=== PATIENT | male | born 1950 | race Caucasian/White ===

== ENCOUNTER 2017-11-12 10:13 | Inpatient (IN) | payer MEDICARE, MEDICAID ==
[~2017-11-12] VITALS: Ht 172.7 cm; Wt 74.7 kg
[~2017-11-12 10:13] MED LIST changes: -IRON150C19 PO; -LEDI1TAB
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
[2017-11-12] MEDS ORDERED: DIPHTH/TETANUS/ACEL. PERTUSSIS IM ONE (10:30)
[2017-11-12 10:43] LABS: PLATELET COUNT, AUTOMATED 232 K/uL (150-450)
[2017-11-12 10:44] LABS: INR 1.06
[2017-11-12] MEDS ORDERED: fentaNYL CITR 100 MCG/2 ML AMP IVP ONE ×2 (10:45→11:50)
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
[2017-11-12] MEDS ORDERED: LEDI1TAB (11:17)
[2017-11-12] MEDS ORDERED: TRAZ-156 PO (11:17)
[2017-11-12] MEDS ORDERED: IRON150C19 PO (11:17)
--- NOTE | 2017-11-12 11:17 | RADIOLOGY IMAGING REPORT ---
FACILITY: [facility] - [place] PATIENT NAME: Saravanan William : 1950 MR: [id number] V: [id number] EXAM DATE: ORDERING PHYSICIAN: NARCISA RIVAS TECHNOLOGIST: [place] [facility] [place] Saravanan Willaim : 1950 Visit/Account:[id number] Date of Sevice: 11/12/2017 Exam type: HIP LEFT History: fall Comparison: None. Findings: There is a fracture through the left femoral neck with superior migration of the left femoral shaft. A lateral view was not obtained although on the oblique view there suggestion of slight posterior di splacement of the distal shaft. There is diffuse osteopenia present. Extensive spondylotic changes of the lumbar spine noted IMPRESSION: 1. Fracture to the left femoral shaft with superior migration of the left femoral shaft and a sugges tion of mild posterior displacement on the oblique view Report Dictated By: Abbey Corbett MD at 11/12/2017 11:10 AM Report E-Signed By: Abbey Corbett MD at 11/12/2017 11:12 AM WSN:[email or web address]
--- NOTE | 2017-11-12 11:20 | RADIOLOGY IMAGING REPORT ---
FACILITY: [facility] PATIENT NAME: Saravanan William : 1950 MR: [id number] V: [id number] EXAM DATE: ORDERING PHYSICIAN: NARCISA RIVAS TECHNOLOGIST: Location: [facility] - [place] Patient: Saravanan William : 1950 Visit/Account:[id number] Date of Sevice: 11/12/2017 Exam type: CHEST SINGLE AP History: Fall with hip pain Comparison: August 04, 2016. Findings: There is elevation right hemidiaphragm which has increased when compared to the prior study. The pearl g nuñez appear relatively free of consolidation. There is no evidence of pleural effusions or overt pulmonary edema. Central pulmonary arteries appear slightly prominent although similar to the prior examination allowing for the difference in radiographic technique. Cardiac silhouette is normal in size IMPRESSION: 1. Elevation right hemidiaphragm has increased when compared to the prior study from August 04 16 suggesting diaphragmatic paralysis. Prominent central pulmonary arteries similar to the prior study Report Dictated By: Abbey Corbett MD at 11/12/2017 11:12 AM Report E-Signed By: Abbey Corbett MD at 11/12/2017 11:16 AM WSN:[email or web address]
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
[2017-11-12] MEDS ORDERED: NS(*) 0.9% 1000 ML BAG 1,000 ML IV ONE (12:35)
--- NOTE | 2017-11-12 13:54 | History & Physical ---
History of Present Illness Chief Complaint Left hip pain. History of Present Illness This patient presented to the emergency room complaining of hip pain after a fall. The pain is located in the left hip and rated as severe. He has been unable to bear weight since the incident. History Problems: (1) Depression Status: Chronic (2) BPH (benign prostatic hyperplasia) Status: Chronic (3) CVA (cerebral vascular accident) Status: Chronic (4) Gastric ulcer Status: Chronic (5) Hepatitis C Status: Chronic (6) S/P lumbar laminectomy Status: Chronic (7) Status post skin flap graft Status: Resolved (8) S/P total knee arthroplasty Status: Chronic Home Meds Active Scripts Oxycodone HCl (Oxycodone HCl ER) 15 Mg Tab.er.12h, 1 TAB PO Q12H, #60 TAB 0 Refills may fill on or after 11/07/17 Prov:LILLI ZAPATA APRN-C 10/29/17 Gabapentin (GABAPENTIN) 600 Mg Tablet, 2 CAP PO TID, #180 CAP 5 Refills Prov:LILLI ZAPATA APRN-C 10/19/17 Tizanidine Hcl (TIZANIDINE HCL) 4 Mg Capsule, 4 MG PO TID Y for SPASMS, #90 CAPSULE 1 Refill Prov:LILLI ZAPATA APRN-C 10/05/17 Ranitidine Hcl (ZANTAC) 150 Mg Tablet, 150 MG PO DAILY for 90 Days, #90 TAB 3 Refills Prov:LILLI ZAPATA APRN-C 09/15/17 Duloxetine Hcl (CYMBALTA) 60 Mg Capsule.dr, 1 TAB PO DAILY, #90 TAB 1 Refill Prov:LILLI ZAPATA APRN-C 09/09/17 Sucralfate (CARAFATE) 1 Gm Tablet, 1 GM PO ACHS, #120 TAB 5 Refills Prov:LILLI ZAPATA APRN-C 08/25/17 Cyanocobalamin (Vitamin B-12) (B-12) 500 Mcg Tablet, 500 MCG PO QDAY, #90 TAB Prov:IZA MEHTA MD 10/29/16 Reported Medications Trazodone Hcl (TRAZODONE HCL) 50 Mg Tablet, 50 MG PO QHS 11/12/17 Iron Polysaccharides Complex (POLYSACCHARIDE IRON 150) 150 Mg Capsule, 150 MG PO , CAPSULE 11/12/17 Ledipasvir/Sofosbuvir (Harvoni 90-400 mg Tablet) 1 Each Tablet 11/12/17 Discontinued Scripts Prazosin Hcl (PRAZOSIN HCL) 2 Mg Capsule, 1 CAP PO QHS, #30 CAPSULE 0 Refills Prov:LILLI ZAPATA FRANSISCA [employer] SALES ASSISTANT-C 10/29/17 Allergies: Coded Allergies: No Known Drug Allergies (Unverified , 11/12/17) 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, , Age:81 MOTHER, Age:86 BROTHER OR SISTER BROTHER OR SISTER Endogenous hypertriglyceridemia FATHER, , Age:81 FH: COPD (chronic obstructive pulmonary disease) FATHER, , Age:81 FH: VA (myocardial infarction) FATHER, , Age:81 FH: abdominal aortic aneurysm FATHER, , Age:81 FH: emphysema FATHER, , Age:81 FH: hypercholesterolemia FATHER, , Age:81 FH: hypertension FATHER, , Age:81 No pertinent family history Hx Smoking: No Smoking Status: Never Smoker Exposure to Second Hand Smoke?: Yes Caffeine Intake: Coffee Caffeine/Cups Per Day: 4 Hx Alcohol Use: Yes Alcohol Used: Wine Hx Substance Use Disorder: No Social Drug Use: Former Social Drugs: Cocaine Amount Of Social Drug/s Used: TRIED 1/2 GRAM EVERY COUPLE OF DAYS Review of Systems All Systems Reviewed/Normal: Yes, Except as Noted Musculoskeletal: Pain Exam Vital Signs Vital Signs Date Time Temp Pulse Resp B/P (MAP) Pulse Ox O2 Delivery O2 Flow Rate FiO2 11/12/17 12:03 67 9 89 11/12/17 12:00 141/78 (99) 11/12/17 10:56 2.0 11/12/17 10:19 98.3 Nasal Cannula Neuro: No Gross deficits Eyes: PERRLA Cardiovascular: Regular Rate and Rhythm Respiratory: Clear to Auscultation GI: Abd Soft and Non-Tender Extremities: No Edema Integumentary: No Cyanosis Medical Decision Making Data Points Result Diagram: 11/12/17 1029 11/12/17 1029 EKG / Imaging EKG Interpretation EKG reviewed. Imaging Chest x-ray reviewed. Assessment and Plan Problems: (1) Closed left hip fracture Status: Acute Assessment & Plan: Dr. Larsen was contacted from the emergency department and is scheduled to see him later today. (2) Depression Status: Chronic Assessment & Plan: He is on chronic treatment with duloxetine and gabapentin, which are both currently on hold until after surgery. Copies to: LILLI ZAPATA APRN [employer] SALES ASSISTANT-C; CANELO LARSEN MD Venous Thromboembolism Antithrombotics Is Pt On Any Antithrombotics?: No Exam Sepsis Risk: No Definite Risk Problem Qualifiers (1) Closed left hip fracture: Encounter type: initial encounter Qualified Codes: S72.002A - Fracture of unspecified part of neck of left femur, initial encounter for closed fracture MALINDA MURPHY DO Nov 12, 2017 13:54
[2017-11-12] MEDS: MORPHINE 2 MG/ML SYR IVP PRN ×3 (14:11→22:18)
[2017-11-12] MEDS: ACETAMINOPHEN(*)1000 MG/100 ML 100 ML IVPB PRN ×2 (14:15→21:42)
[2017-11-12 15:17] VITALS: Ht 172.7 cm; Wt 74.7 kg
[2017-11-12 17:28] VITALS: BP 158/93
[2017-11-12 18:55] VITALS: BP 154/90
[2017-11-12] MEDS: traZODone HCL 50 MG TAB PO PRN (22:18)
[2017-11-12 22:46] VITALS: BP 156/108
[2017-11-13 02:51] VITALS: BP 121/76
[2017-11-13] MEDS: NS(*) 0.9% 1000 ML BAG 1,000 ML IV PRN ×3 (02:52→22:50)
[2017-11-13] MEDS: MORPHINE 2 MG/ML SYR IVP PRN ×5 (02:52→20:09)
[2017-11-13 05:50] LABS: PLATELET COUNT, AUTOMATED 171 K/uL (150-450)
[2017-11-13] MEDS: ACETAMINOPHEN(*)1000 MG/100 ML 100 ML IVPB PRN ×3 (06:19→19:43)
[2017-11-13 06:59] VITALS: BP 137/83
[2017-11-13] MEDS: DULoxetine HCL 30 MG CAPCR PO SCH (10:02)
[2017-11-13] MEDS: GABAPENTIN 300 MG CAP PO SCH ×3 (10:03→21:20)
[2017-11-13 11:36] VITALS: BP 156/96
--- NOTE | 2017-11-13 13:17 | Hospitalist Progress Note ---
Subjective Progress Notes Subjective The patient states his pain is controlled as long as he doesn't move. Physical Exam Vital Signs Date Time Temp Pulse Resp B/P (MAP) Pulse Ox O2 Delivery O2 Flow Rate FiO2 11/13/17 11:36 98.6 68 20 156/96 (116) 96 Nasal Cannula 1.0 Intake and Output 11/14/17 07:00 Intake Total 1725 ml Balance 1725 ml Intake Oral 840 ml IV Total 885 ml General Appearance: Alert, Awake, No Acute Distress Neuro: No Gross deficits Eyes: PERRLA Cardiovascular: Regular Rate and Rhythm Respiratory: Clear to Auscultation GI: Soft and Non-Tender Extremities: Warm, Perfused Psych: Appropriate Mood & Affect Result Diagram: 11/13/1751711/13/17517 Assessment and Plan Problems: (1) Closed left hip fracture Status: Acute Assessment & Plan: Dr. Jeter has seen the patient and plans to take him to surgery 11/14. (2) Depression Status: Chronic Assessment & Plan: He is on chronic treatment with duloxetine and gabapentin, which will be continued. Time Spent on Plan of Care: < 30 min Exam Sepsis Risk: No Definite Risk Problem Qualifiers (1) Closed left hip fracture: Encounter type: initial encounter Qualified Codes: S72.002A - Fracture of unspecified part of neck of left femur, initial encounter for closed fracture DORINA SIERRA MD Nov 13, 2017 13:17
[2017-11-13 18:51] VITALS: BP 150/93
[2017-11-13] MEDS: DOCUSATE SODIUM 100 MG CAP PO SCH (21:20)
[2017-11-13] MEDS: traZODone HCL 50 MG TAB PO PRN (21:20)
[2017-11-13 22:47] VITALS: BP 147/91
[2017-11-14] VITALS (16 sets, daily range): BP systolic 138–163; BP diastolic 79–152
[2017-11-14] MEDS: MORPHINE 2 MG/ML SYR IVP PRN ×2 (00:40→05:17)
[2017-11-14 05:57] LABS: PLATELET COUNT, AUTOMATED 160 K/uL (150-450)
[2017-11-14] MEDS ORDERED: NORMOSOL R SOLN(*) 1000 ML BAG 1,000 ML IV ONE (07:00)
[2017-11-14] MEDS ORDERED: FAMOTIDINE 20 MG TAB PO ONE (07:00)
[2017-11-14] MEDS: ACETAMINOPHEN(*)1000 MG/100 ML 100 ML IVPB PRN (07:45)
[2017-11-14] MEDS: GABAPENTIN 300 MG CAP PO SCH ×3 (07:45→20:38)
[2017-11-14] MEDS ORDERED: cloNIDine EPIDUR INJ 100MCG/ML 40 MCG, ROPIVACAINE 0.5% 20 ML VIAL 25 ML, EPINEPHrine H... INJ ONE (08:35)
[2017-11-14] MEDS ORDERED: BACITRACIN 50000 UNIT/VIAL 100,000 UNIT in NS 0.9% 3000 ML IRRIGATION BAG 3,000 ML IR ONE (08:40)
[2017-11-14] MEDS ORDERED: TRANEXAMIC AC 1000 MG/10ML SDV 1,000 MG in DEXTROSE 5% 50 ML BAG 50 ML IVPB ONE (08:45)
[2017-11-14] MEDS ORDERED: fentaNYL CITR 250 MCG/5 ML AMP ONE ×3 (08:56→08:57)
[2017-11-14] MEDS ORDERED: PROPOFOL EMUL(*) 10MG/ML 20 ML 20 ML ONE (08:58)
[2017-11-14] MEDS ORDERED: LIDOCAINE MPF 1% 5 ML VIAL ONE (08:58)
[2017-11-14] MEDS ORDERED: ONDANSETRON 4 MG/2 ML VIAL ONE (08:58)
[2017-11-14] MEDS ORDERED: DEXAMETHASONE SOD PHOS 10MG/ML ONE (08:58)
[2017-11-14] MEDS ORDERED: SUGAMMADEX SOD 200 MG/2 ML SDV ONE (08:59)
--- NOTE | 2017-11-14 08:59 | Hospitalist Progress Note ---
Subjective Progress Notes Subjective He reports doing well overnight. No CP/SOB/N/V. Physical Exam Vital Signs Date Time Temp Pulse Resp B/P (MAP) Pulse Ox O2 Delivery O2 Flow Rate FiO2 11/14/17 07:37 97 Nasal Cannula 2.0 11/14/17 07:02 98.9 75 18 162/84 (110) General Appearance: Alert, Awake Cardiovascular: Regular Rate and Rhythm Respiratory: Clear to Auscultation GI: Soft and Non-Tender Extremities: Warm, Perfused Psych: Alert & Oriented X3 Result Diagram: 11/14/1734 11/14/17533 Assessment and Plan Problems: (1) Closed left hip fracture Status: Acute Assessment & Plan: Plan is for surgical correction today with Dr. Jeter. He will begin DVT prophylaxis post-op.. (2) Depression Status: Chronic Assessment & Plan: He is on chronic treatment with duloxetine and gabapentin, which which have been continued. Exam Sepsis Risk: No Definite Risk Problem Qualifiers (1) Closed left hip fracture: Encounter type: initial encounter Qualified Codes: S72.002A - Fracture of unspecified part of neck of left femur, initial encounter for closed fracture SMILEY SIERRA MD Nov 14, 2017 08:59
[2017-11-14] MEDS: DOCUSATE SODIUM 100 MG CAP PO SCH ×2 (09:00→20:38)
[2017-11-14] MEDS ORDERED: KETAMINE HCL 200 MG/20 ML MDV ONE (09:39)
[2017-11-14] MEDS ORDERED: ePHEDrine 25 MG/5 ML DISP.SYR IVP ONE (10:00)
[2017-11-14] MEDS ORDERED: HYDROmorphone HCL 2 MG/ML SDV ONE (10:00)
[2017-11-14] MEDS ORDERED: ceFAZolin 1 GM VIAL ONE (10:00)
[2017-11-14] MEDS ORDERED: LABETALOL HCL 100 MG/20ML VIAL ONE (11:59)
[2017-11-14] MEDS ORDERED: MAGNESIUM CITRATE 300 ML BTL PO PRN (12:00)
[2017-11-14] MEDS ORDERED: MAGNESIUM HYDROXIDE* 30ML UDCP PO PRN (12:00)
[2017-11-14] MEDS ORDERED: HYDROmorphone HCL 2 MG/ML SDV IVP PRN (12:00)
[2017-11-14] MEDS ORDERED: BISACODYL 10 MG SUPP PR PRN (12:00)
[2017-11-14] MEDS ORDERED: PROMETHAZINE 25 MG/ML 1 ML AMP IVP PRN (12:00)
[2017-11-14] MEDS ORDERED: diphenhydrAMINE 25 MG CAP PO PRN (12:00)
[2017-11-14] MEDS ORDERED: ONDANSETRON 4 MG/2 ML VIAL IVP PRN (12:00)
[2017-11-14] MEDS ORDERED: ZOLPIDEM TARTRATE 5 MG TAB PO PRN (12:00)
[2017-11-14] MEDS ORDERED: FLUSH 10 ML SYR IVP PRN (12:00)
[2017-11-14] MEDS ORDERED: LR 1000 ML BAG 1000 ML IV PRN (12:00)
[2017-11-14] MEDS ORDERED: diphenhydrAMINE 50 MG/ML VIAL IVP PRN (12:00)
--- NOTE | 2017-11-14 12:14 | RADIOLOGY IMAGING REPORT ---
FACILITY: [facility] [place] PATIENT NAME: Saravanan William : 1950 MR: [id number] V: [id number] EXAM DATE: ORDERING PHYSICIAN: PARISH MEI TECHNOLOGIST: [place] [facility] [place] Saravanan William : 1950 Visit/Account:[id number] Date of Sevice: 11/14/2017 HIP LEFT Indication: Arthroplasty. Comparison: November 12, 2017 Findings: Frontal view of the pelvis and a frontal view of the left hip are obtained. The left iliac crest is e xcluded from both images. A left hip bipolar hemiarthroplasty has been placed in the interval. Compon ents appear appropriately aligned in this single projection. No periprosthetic fracture. There is gas within the operative bed. Right hip joint osteoarthritis noted. IMPRESSION: 1. Interval placement of a left hip bipolar hemiarthroplasty in appropriate alignment on this single projection. Report Dictated By: Sedrick Conroy at 11/14/2017 12:08 PM Report E-Signed By: Sedrick Conroy at 11/14/2017 12:10 PM WSN:[id number]
[2017-11-14] MEDS: DULoxetine HCL 30 MG CAPCR PO SCH (13:39)
[2017-11-14] MEDS: NS(*) 0.9% 1000 ML BAG 1,000 ML IV PRN (14:13)
[2017-11-14] MEDS: ceFAZolin(*) 1 GM VIAL 1 GM in NS(*) 0.9% 100 ML ADDVANT BAG 100 ML IVPB SCH (17:39)
[2017-11-14] MEDS: traZODone HCL 50 MG TAB PO PRN (20:38)
[2017-11-14] MEDS ORDERED: ASPIRIN 325 MG TAB PO ONE (21:00)
[2017-11-15 00:37] VITALS: BP 157/90
[2017-11-15] MEDS: ceFAZolin(*) 1 GM VIAL 1 GM in NS(*) 0.9% 100 ML ADDVANT BAG 100 ML IVPB SCH ×2 (02:01→10:24)
[2017-11-15 03:48] VITALS: BP 146/88
--- NOTE | 2017-11-15 04:35 | OPERATIVE REPORT 1 ---
EVENT DATE: November 12, 2017 SURGEON: Lee Chavira MD ANESTHESIOLOGIST: Dwayne Gray MD ANESTHESIA: General LMA SURVEY QUESTIONNAIRE DESIGNER: Anuj Jeter MD PREOPERATIVE DIAGNOSIS Left femoral neck fracture. POSTOPERATIVE DIAGNOSIS Left femoral neck fracture. PROCEDURE PERFORMED Left hemiarthroplasty for a fracture. FINDINGS The patient had a femoral neck fracture, but was amenable for a hemiarthroplasty , as he had no major signs of arthritis associated with the hip. ESTIMATED BLOOD LOSS About 150 mL. DRAINS None. COMPLICATIONS None. TOURNIQUET TIME Not applicable. IMPLANTS Zeina Avenir size 5 standard stem with a 44 mm bipolar cup, a liner for the 44 bipolar cup and a 28+0 head. SPECIMENS None. INDICATIONS AND HISTORY This patient is a 67-year-old male who presented to [facility] after a fall for a left femoral neck fracture. He was admitted by Dr. Diop to the medical service, and orthopedics was consulted with Dr. Jeter. Dr. Jeter then consulted me for further evaluation and possible hemiarthroplasty associated with this. We went over the risks and benefits associate with the patient, and informed consent was obtained at the hospital here to do a hemiarthroplasty in order to aid with ambulation. He agreed to that, and we got him set up to do this today, November 13, 2017. DESCRIPTION OF PROCEDURE The patient was brought into the operating room. He and the procedure were both verified. He was placed supine on the operative table and induced and intubated by Anesthesia. He was also then turned in a lateral decubitus position with the left hip towards the ceiling, and then the left hip was prepped and draped in the usual fashion and time out was observed, verifying the correct patient and procedure. After making a standard incision on the posterior approach, I was able to go through the skin and subcutaneous tissue until I got down to the IT band on the gluteal musculature. Once I was able to go through this, I made an incision through this, and then was able to get underneath the IT musculature and then split the gluteal musculature in line with the fibers. I then placed a Charnley underneath this and was able to cauterize all bleeders on the way in order to have a good clean field. This was then followed by identification of the short external rotators. I identified the piriformis and put a small pair of scissors underneath this. I was then able to get underneath that enough to then cut the pyriformis and then tag it for later repair. I also cut the leading edge of the short external rotators on the superior aspect of the leg all the way to about the lesser troch. I was then able to cut the capsule with a T shape fashion, and then tag it for later repair. Once I did this, I then was able to turn the leg in an internally rotated position with slight flexion, and then identify the femoral head. Once I identified the femoral head, I was then able to use the corkscrew device in order to remove the femoral head without any major difficulty or issues associated with this. This measured to a 42, but I still had some space , and so therefore a 44 was chosen. I then cleaned out the acetabulum, removing the rest of the ligamentum teres, and also making sure there were no signs of lesions or issues associated with this. Since I had good cartilage, a bipolar prosthesis was chosen, and then I was able to put the trial 44 in here. It had excellent fit, and had good adhesive aspects of the suction with the labrum still intact, and so therefore that the final prosthesis size chosen. I then turned attention back to the femur, where I was able to put a retractor underneath the posterior side, and then a retractor on the medial side. This was then followed by taking a box cutting osteotome and cutting the initial part of the femoral canal, and then also a canal-finding reamer in order to go down the canal itself. Once I was able to identify a good portion of the canal , I then started with the standard broaches out of the Avenir stem. This was started with a 1, and then all the way up to a 5. The 5 had excellent positioning and stability associated with it, and so this was the final component chosen, and there were no signs of problems or issues with any fractures associated with the metaphyseal portion of the femur. I then trialed the standard head and neck associated with this. This looked good, and there were no signs of problems or issues associated with this, and so therefore I then went through the trial aspects. There was good stability associated with it, and so therefore we dislocated and put in the final components after washing with copious amounts of saline, which I had done throughout the entire case with the pulsatile lavage. After relocating the hip and putting it through a range of motion, it showed good stability and leg length with the final components. I then closed the gluteal musculature as well as the IT band with a #2 Stratafix. This was then followed by 2-0 Stratafix in the subcutaneous tissue, placement of the pain cocktail throughout the soft tissue, and then a 4-0 Monocryl on the skin in interrupted subcuticular fashion with the ends inside. This was then dressed with Steri-Strips, gauze 4x4's, and a soft dressing, and the patient was awakened and extubated and transferred to PACU in stable condition with an abduction pillow. JEB
--- NOTE | 2017-11-15 06:01 | Hospitalist Progress Note ---
Subjective Progress Notes Subjective He reports surgical site pain. No other complaints. Physical Exam Vital Signs Date Time Temp Pulse Resp B/P (MAP) Pulse Ox O2 Delivery O2 Flow Rate FiO2 11/15/17 03:48 97.6 73 16 146/88 (107) 94 Nasal Cannula 2.0 General Appearance: Alert, Awake Cardiovascular: Regular Rate and Rhythm Respiratory: Clear to Auscultation Result Diagram: 11/14/17 0534 11/14/17 0534 Assessment and Plan Problems: (1) Closed left hip fracture Status: Acute Assessment & Plan: He had hip replacement with Dr. Chavira 11/14/17. He will begin aspirin 325mg daily DVT prophylaxis post-op. (2) Depression Status: Chronic Assessment & Plan: He is on chronic treatment with duloxetine and gabapentin, which which have been continued. Exam Sepsis Risk: No Definite Risk Problem Qualifiers (1) Closed left hip fracture: Encounter type: initial encounter Qualified Codes: S72.002A - Fracture of unspecified part of neck of left femur, initial encounter for closed fracture SMILEY SIERRA MD Nov 15, 2017 06:01
[2017-11-15 06:09] LABS: PLATELET COUNT, AUTOMATED 153 K/uL (150-450)
[2017-11-15 07:37] VITALS: BP 143/86
[2017-11-15] MEDS ORDERED: INFLUENZA VIRUS VAC 0.5 ML SYR IM ONLY ONE (09:00)
[2017-11-15] MEDS: DOCUSATE SODIUM 100 MG CAP PO SCH ×2 (09:08→21:01)
[2017-11-15] MEDS: GABAPENTIN 300 MG CAP PO SCH ×3 (09:08→21:01)
[2017-11-15] MEDS: DULoxetine HCL 30 MG CAPCR PO SCH (09:09)
[2017-11-15] MEDS: ASPIRIN 325 MG TAB PO SCH (09:09)
[2017-11-15 11:17] VITALS: BP 177/91
[2017-11-15 15:41] VITALS: BP 145/85
[2017-11-15] MEDS: traZODone HCL 50 MG TAB PO PRN (21:01)
[2017-11-15 23:54] VITALS: BP 144/81
[2017-11-16 03:43] VITALS: BP 164/102
[2017-11-16 07:56] VITALS: BP 158/89
[2017-11-16] MEDS: DOCUSATE SODIUM 100 MG CAP PO SCH (08:37)
[2017-11-16] MEDS: GABAPENTIN 300 MG CAP PO SCH (08:38)
[2017-11-16] MEDS: DULoxetine HCL 30 MG CAPCR PO SCH (08:38)
[2017-11-16] MEDS: ASPIRIN 325 MG TAB PO SCH (08:38)
--- NOTE | 2017-11-16 08:38 | Hospitalist Depart ---
Discharge Summary Reason for Hosp/Final Diag: (1) Closed left hip fracture Status: Acute Hospital Course & Plan: He had hip replacement with Dr. Chavira 11/14/17. He will continue aspirin 325mg daily DVT prophylaxis post-op. He was able to ambulate with PT yesterday to the bathroom. He will be transferred to [facility] for acute rehab and he is looking forward to further rehab. (2) Depression Status: Chronic Hospital Course & Plan: He is on chronic treatment with duloxetine and gabapentin, which have been continued. Departure Latest Vital Signs Vital Signs 11/16/17 11/16/17 07:56 08:13 Temp 98.5 Pulse 84 Resp 16 B/P (MAP) 158/89 (112) Pulse Ox 97 O2 Delivery Nasal Cannula O2 Flow Rate 1.0 Weight (Pounds): 164 Weight (Ounces): 10.0 Result Diagram: 11/16/17 0543 11/15/17 0546 Condition: Improved [facility] Discharge Instructions Home Meds Active Scripts Oxycodone HCl (Oxycodone HCl ER) 15 Mg Tab.er.12h, 1 TAB PO Q12H, #60 TAB 0 Refills may fill on or after 11/07/17 Prov:LILLI ZAPATA APRN-C 10/29/17 Gabapentin (GABAPENTIN) 600 Mg Tablet, 2 CAP PO TID, #180 CAP 5 Refills Prov:LILLI ZAPATA APRN-C 10/19/17 Tizanidine Hcl (TIZANIDINE HCL) 4 Mg Capsule, 4 MG PO TID Y for SPASMS, #90 CAPSULE 1 Refill Prov:LILLI ZAPATA APRN-C 10/05/17 Ranitidine Hcl (ZANTAC) 150 Mg Tablet, 150 MG PO DAILY for 90 Days, #90 TAB 3 Refills Prov:LILLI ZAPATA APRN-C 09/15/17 Duloxetine Hcl (CYMBALTA) 60 Mg Capsule.dr, 1 TAB PO DAILY, #90 TAB 1 Refill Prov:LILLI ZAPATA APRN-C 09/09/17 Sucralfate (CARAFATE) 1 Gm Tablet, 1 GM PO ACHS, #120 TAB 5 Refills Prov:LILLI ZAPATA APRN 08/25/17 Cyanocobalamin (Vitamin B-12) (B-12) 500 Mcg Tablet, 500 MCG PO QDAY, #90 TAB Prov:IZA MEHTA MD 10/29/16 Reported Medications Trazodone Hcl (TRAZODONE HCL) 50 Mg Tablet, 50 MG PO QHS 11/12/17 Iron Polysaccharides Complex (POLYSACCHARIDE IRON 150) 150 Mg Capsule, 150 MG PO , CAPSULE 11/12/17 Ledipasvir/Sofosbuvir (Harvoni 90-400 mg Tablet) 1 Each Tablet 11/12/17 Discontinued Scripts Prazosin Hcl (PRAZOSIN HCL) 2 Mg Capsule, 1 CAP PO QHS, #30 CAPSULE 0 Refills Prov:LILLI ZAPATA APRN 10/29/17 Diet: Regular Activity: As Tolerated Copies to: LILLI ZAPATA APRN Venous Thromboembolism Antithrombotics Is Pt On Any Antithrombotics?: No Problem Qualifiers (1) Closed left hip fracture: Encounter type: initial encounter Qualified Codes: S72.002A - Fracture of unspecified part of neck of left femur, initial encounter for closed fracture JOVANY RODRIGUEZ MD FACP Nov 16, 2017 08:38
[2017-11-16] MEDS ORDERED: PRAZ2CAP26 PO (14:20)
== END 2017-11-16 10:05 | DRG 470 ==
LOC: ER 10:14 → MED 12:31
PROVIDERS: ADMIT Family Medicine; ATTEND Family Medicine
PROC: 0SRS0JA Replacement of Left Hip Joint, Femoral Surface with Synthetic Substitute, Uncemented, Open Approach (ICD-10-PCS; principal; 2017-11-12)
DX: S72.002A Fracture of unspecified part of neck of left femur, initial encounter for closed fracture (principal); I10 Essential (primary) hypertension; N40.0 Benign prostatic hyperplasia without lower urinary tract symptoms; B18.2 Chronic viral hepatitis C; K25.7 Chronic gastric ulcer without hemorrhage or perforation; Z23 Encounter for immunization; J45.909 Unspecified asthma, uncomplicated; F32.9 Major depressive disorder, single episode, unspecified; W01.0XXA Fall on same level from slipping, tripping and stumbling without subsequent striking against object, initial encounter; Y92.008 Other place in unspecified non-institutional (private) residence as the place of occurrence of the external cause; Y99.8 Other external cause status; Z86.73 Personal history of transient ischemic attack (TIA), and cerebral infarction without residual deficits; Z87.440 Personal history of urinary (tract) infections; Z96.651 Presence of right artificial knee joint
CPT/HCPCS: 36415; 71045; 81001; 82040; 82247; 82310; 82374; 82435; 82565; 82947; 84075; 84132; 84155; 84295; 84450; 84460; 84520; 85014; 85018; 85025; 85048; 85610; 85730; 86850; 86900; 86901; 87088; 90471; 90715; 93005; 96361; 96374; 96376; 97161; 97165; 99285; C1776; J0131; J0171; J0690; J0735; J1100; J1170; J1885; J2001; J2270; J2405; J2704; J2795; J3010; J3490; J7030; J7050; J7060

== ENCOUNTER → 2017-11-12 | Outpatient (CLI) | payer MEDICARE, MEDICAID ==
[~2017-11-12] MED LIST: ALB18R IH; AMIT-106 PO; AMIT-108 PO; AMLO-96 PO; ASPI-757 PO; AZIT-1 PO; BACL-1 PO; CIPR-214 PO; CLIN300C99 PO; CLON-327 PO; CYAN500T54 PO; CYCL10TA29 PO; DIA5 PO; DICL100G39 TOP; DOCU-416 PO; DULO30CA6 PO; DULO60CA56 PO; FAMO20TA28 PO; FENT-15 TD; FENT-17 TD; FERR-53 PO; FERR325C2 PO; FERR325T24 PO; FLU180SY9 IM; GABA-503 PO; GABA-506 PO; GABA-549 PO; HEPA20VI IM; HEPA50VI4 IM; HYDR-385 PO; HYDR-393 PO; HYDR2TAB74 PO; IRON SUPPLEMENT; IRON150C19 PO; LEDI1TAB; LEDI1TAB PO; LISI-362 PO; LISI20TA29 PO; METH4TAB66 PO; MORP-1 PO; MORP-181 PO; MORP-20 PO; MORP10CA3 PO; OMEP-137 PO; OXYC-373 PO; OXYC-374 PO; OXYC-375 PO; OXYC-865 PO; OXYC-870 PO; OXYC10TA19 PO; OXYC10TA67 PO; OXYC15TA PO; PANT40TA65 PO; PHEN200T32 PO; PNEU0.5D3 IM; PRAZ1CAP26 PO; PRAZ2CAP26 PO; RANI-324 PO; SERT-184 PO; SUCR1TAB51 PO; SUCR1TAB85 PO; TAMS0.4C25 PO; TIZA-128 PO; TIZA4CAP3 PO; TRAZ-156 PO; ZOLP-1 PO; [UNRECOGNIZED DRUG - REMARK]
[2017-11-12 15:17] VITALS: BMI 24.9
== END ==
LOC: AMB 09:48
PROVIDERS: ATTEND Nurse Practitioner
DX: M25.552 Pain in left hip (principal); I49.3 Ventricular premature depolarization; W01.0XXA Fall on same level from slipping, tripping and stumbling without subsequent striking against object, initial encounter; Y92.039 Unspecified place in apartment as the place of occurrence of the external cause
CPT/HCPCS: A0425; A0427

== ENCOUNTER 2017-11-16 10:05 | Inpatient (IN) | payer MEDICARE, MEDICAID ==
[2017-11-12 15:17] VITALS: Ht 170.2 cm; Wt 71.0 kg
[~2017-11-16] VITALS: Ht 170.2 cm; Wt 71.0 kg
[~2017-11-16 10:05] MED LIST changes: +IRON150C19 PO; +LEDI1TAB
[2017-11-16 10:15] VITALS: BP 160/85
[2017-11-16] MEDS ORDERED: traZODone HCL 50 MG TAB PO PRN (10:35)
[2017-11-16] MEDS ORDERED: MAGNESIUM HYDROXIDE* 30ML UDCP PO PRN (10:35)
--- NOTE | 2017-11-16 11:00 | Consultant Pharmacy Review ---
Packing Machine Pilot Can Router Review Medication Review Do All Mecications have a Diag: Yes Beers Criteria Medication 2014 Pain Medications: NSAIDs (nonCOX selective) (ASPIRIN 325MG DAILY - HX OF CVA) Other General Cautions Medication review: Milk of magnesia can reduce absorption of other medications such as Gabapentin and Iron. Avoid taking these medications within two hours of each other for optimal absorption. Monitor BUOY TENDER depression in this patient taking Gapabentin with Percocet. This can create a greater fall risk, especially in older patients. Lexicomp Interaction Analysis A = No known interaction C = Monitor therapy X = Avoid combination B = No action needed D = Consider therapy modification Drugs in this analysis: Aspirin; Docusate Sodium (SYN); DULoxetine; Gabapentin; Milk of Magnesia [OTC]; Percocet; Polysaccharide-Iron Complex; TraZODone * Drug-Drug Interactions D Gabapentin Milk of Magnesia [OTC] (Antacids) D Gabapentin Milk of Magnesia [OTC] (Magnesium Salts) Depends on Route D Gabapentin (BUOY TENDER Depressants) Percocet (OxyCODONE) D Milk of Magnesia [OTC] (Antacids) Polysaccharide-Iron Complex (Iron Salts) Depends on Route C Aspirin DULoxetine (Serotonin/Norepinephrine Reuptake Inhibitors) C DULoxetine (Serotonin Modulators) Percocet (Opioid Analgesics) C DULoxetine (Serotonin Modulators) TraZODone (Serotonin Modulators) C Percocet (Opioid Analgesics) TraZODone (Serotonin Modulators) B Aspirin (Salicylates) Milk of Magnesia [OTC] (Antacids) Depends on Duration Pneumococcal Vaccine HX Pneumo Vac ([id number]): Yes (05/21/2016) HX Pneumo Vac (Pneumovax): No MD Notified? Notified?: No ILANA TORREZ Nov 16, 2017 11:00
[2017-11-16] MEDS: GABAPENTIN 300 MG CAP PO SCH ×2 (13:50→20:37)
[2017-11-16] MEDS ORDERED: PRAZ2CAP26 PO (14:20)
[2017-11-16 15:55] VITALS: BP 135/84
--- NOTE | 2017-11-16 16:04 | OT ECF NOTE ---
Type of Note: Initial Note Primary Medical Diagnosis: Generalized weakness s/p left hip hemiarthroplasty. L LE WBAT with posterior hip precautions. Occupational Therapy Evaluation Date: 11/16/17 SUBJECTIVE: Prior Hospitalization: H 11/12/17 thru 11/16/17. DOS: 11/14/[address] Chavira Prior Level of Function: Independent with dressing and toileting. Assist from Quality for bathing, cleaning, and meal preparation Prior Living Status: Senior housing Community Services: Support adequate, Home health halfway Accessibility: All needs on one level, Tub/shower combination Equipment Owned: Rollator, Extended tub bench Medical Complications/Past Medical History: Extensive medical hx, please refer to EMR Psychosocial Support: Sister that resides in [place] Pain Scale (0-10): 6/10 upon initial evaluation. Emotional support provided. Pt declined application of ice. 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 Assistive Device: Front wheeled walker, Gait belt Transfer Ability: Minimum assistance. Pt with decreased safety awareness and balance noted during ambulation. Impulsive and requiring frequent v/c's to maintain posterior hip precautions during all transfers and mobility. ADL: Upper body dressing: Assistive device: Upper body dressing ability: Set-up Lower body dressing: Assistive device: Will benefit from LB AE education Lower body dressing ability: Total assistance Toileting: Assistive device: Raised toilet seat Toileting ability: Moderate assistance Grooming/hygiene: Assistive device: Seated Grooming ability: Set-up Bathing: Assistive device: Bathing ability: N/T Standardized Assessment: Luis Felipe Index of Activities of Daily Livin/20 upon initial evaluation (). ASSESSMENT: "Brain" sustained a fall at home resulting in L hip fx and subsequent L hip hemiarthroplasty. At OF, he was independent with dressing and toileting. He currently requires Minimum A for ambulation, Total A for LB dressing, Moderate A for toileting and constant verbal cues to adhere to posterior hip precautions. He will benefit from skilled OT services to improve safety and independence with ADLs prior to discharge home. Problem List/Current Limitations: Pain Decreased activity tolerance Decreased ROM Decreased coordination Decreased balance Generalized weakness Poor safety awareness Decreased problem solving Short Term Goals: 1) Pt will be SBA UB/LB dressing with AE. 2) Pt will be SBA toilet task. 3) Pt will be SBA grooming/hygiene. 4) Pt will be Min A shower task. 5) Pt Luis Felipe Index of ADLs score will increase by 2 points. Heliarc Welder Goals: Return home with increased services Patient Goals: Return home Rehabilitation Prognosis: Good Barriers to Discharge: Extensive medical hx, poor safety awareness PLAN: The patient will benefit from skilled occupational therapy services 5 times per week for 2 weeks including: Ther ex ADL training Safety training Ther act IADL training Transfer training Adaptive equip training Bed mobility Energy conservation Thank you for this referral. If you have any questions, concerns, or comments about this report or plan, please contact me at . Asiya Centeno MS, OTR/L Occupational Therapist JEB
--- NOTE | 2017-11-16 16:21 | Medical Nutrition Therapy ---
Nutrition Anthropometrics Height (Inches): 67 Weight (Pounds): 164 BMI Calculated: 24.93 Lamin Nutrition Score: Adequate Lamin Nutrition Risk Score: 17 Dietary Referral Nutrition Risk Factors: Unplanned Loss >10lbs Nutrition Risk Comment: Physical Findings Physical Appearance: Skin Appearance Skin Appearance: Edema Edema Location Modifier: Left Edema Location: Foot Type of Edema: Degree of Edema: Gastrointestinal Symptoms GI Symtoms: Tube Present: Bowel Sounds: Recent Bowel Pattern: Stool Characteristics: Nutritional Diagnosis Nutritional Risk Acuity 3: Hepatitis (C) Nutritional Risk Acuity 4: Good Appetite Past Medical History: HTN, BPH, chronic pain, depression, stroke Nutritional Acuity: 3-Mild Nutrition Problem/Etiology/Sym: No nutrition diagnosis at this time. Energy Requirement: 1861 (MSJ AF1.3) Protein Requirement: 60 (0.8g/kg) Fluid Requirement: 1865 (25mL/kg) Nutrition Monitoring & Eval Nutrition Goals: Eat 50-100% Meal RD Patient Assessment Time: [address] Assessment Type: RD Assessment Patient Nutrition Acuity: 3-Mild Follow Up Date: Nov 23, 2017 Nutritional Comment: 11/16)Pt. admitted post hip replacement. Labs form med floor 11/15) Na 134, Cre 0.6, Glu 135 Hx: HTN, BPH, chronic pain, depression, stroke, CVA, gastric ulcer, hep C. Regular diet, po intake 99% x 5 meals. LAURA TOMAS Nov 16, 2017 12:45
[2017-11-16] MEDS: DOCUSATE SODIUM 100 MG CAP PO SCH (20:37)
[2017-11-17 08:23] VITALS: BP 139/70
--- NOTE | 2017-11-17 08:37 | ECF H&P BLANK ---
[facility] H&P UPDATE History of Present Illness Chief Complaint Left hip pain. History of Present Illness This patient presented to the emergency room complaining of hip pain after a fall. The pain is located in the left hip and rated as severe. He has been unable to bear weight since the incident. History Problems: (1) Depression Status: Chronic (2) BPH (benign prostatic hyperplasia) Status: Chronic (3) CVA (cerebral vascular accident) Status: Chronic (4) Gastric ulcer Status: Chronic (5) Hepatitis C Status: Chronic (6) S/P lumbar laminectomy Status: Chronic (7) Status post skin flap graft Status: Resolved (8) S/P total knee arthroplasty Status: Chronic Home Meds Active Scripts Oxycodone HCl (Oxycodone HCl ER) 15 Mg Tab.er.12h, 1 TAB PO Q12H, #60 TAB 0 Refills may fill on or after 11/07/17 Prov:LILLI ZAPATA APRN-C 10/29/17 Gabapentin (GABAPENTIN) 600 Mg Tablet, 2 CAP PO TID, #180 CAP 5 Refills Prov:LILLI ZAPATA APRNP-C 10/19/17 Tizanidine Hcl (TIZANIDINE HCL) 4 Mg Capsule, 4 MG PO TID Y for SPASMS, #90 CAPSULE 1 Refill Prov:LILLI ZAPATA APRN-C 10/05/17 Ranitidine Hcl (ZANTAC) 150 Mg Tablet, 150 MG PO DAILY for 90 Days, #90 TAB 3 Refills Prov:LILLI ZAPATA APRN-C 09/15/17 Duloxetine Hcl (CYMBALTA) 60 Mg Capsule.dr, 1 TAB PO DAILY, #90 TAB 1 Refill Prov:LILLI ZAPATA APRN-C 09/09/17 Sucralfate (CARAFATE) 1 Gm Tablet, 1 GM PO ACHS, #120 TAB 5 Refills Prov:LILLI ZAPATA APRN-C 08/25/17 Cyanocobalamin (Vitamin B-12) (B-12) 500 Mcg Tablet, 500 MCG PO QDAY, #90 TAB Prov:IZA MEHTA MD 10/29/16 Reported Medications Trazodone Hcl (TRAZODONE HCL) 50 Mg Tablet, 50 MG PO QHS 11/12/17 Iron Polysaccharides Complex (POLYSACCHARIDE IRON 150) 150 Mg Capsule, 150 MG PO , CAPSULE 11/12/17 Ledipasvir/Sofosbuvir (Harvoni 90-400 mg Tablet) 1 Each Tablet 11/12/17 Discontinued Scripts Prazosin Hcl (PRAZOSIN HCL) 2 Mg Capsule, 1 CAP PO QHS, #30 CAPSULE 0 Refills Prov:LILLI ZAPATA APRN TOOL AND MACHINE MAINTAINER-C 10/29/17 Allergies: Coded Allergies: No Known Drug Allergies (Unverified , 11/12/17) 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, , Age:81 MOTHER, Age:86 BROTHER OR SISTER BROTHER OR SISTER Endogenous hypertriglyceridemia FATHER, , Age:81 FH: COPD (chronic obstructive pulmonary disease) FATHER, , Age:81 FH: LA (myocardial infarction) FATHER, , Age:81 FH: abdominal aortic aneurysm FATHER, , Age:81 FH: emphysema FATHER, , Age:81 FH: hypercholesterolemia FATHER, , Age:81 FH: hypertension FATHER, , Age:81 No pertinent family history Hx Smoking: No Smoking Status: Never Smoker Exposure to Second Hand Smoke?: Yes Caffeine Intake: Coffee Caffeine/Cups Per Day: 4 Hx Alcohol Use: Yes Alcohol Used: Wine Hx Substance Use Disorder: No Social Drug Use: Former Social Drugs: Cocaine Amount Of Social Drug/s Used: TRIED 1/2 GRAM EVERY COUPLE OF DAYS Review of Systems All Systems Reviewed/Normal: Yes, Except as Noted Musculoskeletal: Pain Exam Vital Signs Vital Signs Date Time Temp Pulse Resp B/P (MAP) Pulse Ox O2 Delivery O2 Flow Rate FiO2 11/12/17 12:03 67 9 89 11/12/17 12:00 141/78 (99) 11/12/17 10:56 2.0 11/12/17 10:19 98.3 Nasal Cannula Neuro: No Gross deficits Eyes: PERRLA Cardiovascular: Regular Rate and Rhythm Respiratory: Clear to Auscultation GI: Abd Soft and Non-Tender Extremities: No Edema Integumentary: No Cyanosis Medical Decision Making Data Points Result Diagram: 11/12/17 1029 11/12/17 1029 EKG / Imaging EKG Interpretation EKG reviewed. Imaging Chest x-ray reviewed. Assessment and Plan Problems: (1) Closed left hip fracture Status: Acute Assessment & Plan: Dr. Larsen was contacted from the emergency department and is scheduled to see him later today. (2) Depression Status: Chronic Assessment & Plan: He is on chronic treatment with duloxetine and gabapentin, which are both currently on hold until after surgery. Copies to: LILLI ZAPATA APRN; CANELO LARSEN MD Venous Thromboembolism Antithrombotics Is Pt On Any Antithrombotics?: No Exam Sepsis Risk: No Definite Risk Problem Qualifiers (1) Closed left hip fracture: Encounter type: initial encounter Qualified Codes: S72.002A - Fracture of unspecified part of neck of left femur, initial encounter for closed fracture MALINDA MURPHY DO Nov 12, 2017 13:54 <Electronically signed by MALINDA MURPHY DO> D/ [id number] KNAE/ZEYAD CC: LILLI ZAPATA APRN; CANELO LARSEN MD The above acute care issues are resolving and/or stable. Patient requires mcc and/or skilled rehabilitation and is ready for admission to Extended Care. Any change in condition is described below. DORINA SIERRA MD Nov 17, 2017 08:37
[2017-11-17] MEDS: DOCUSATE SODIUM 100 MG CAP PO SCH ×2 (08:54→20:24)
[2017-11-17] MEDS: DULoxetine HCL 30 MG CAPCR PO SCH (08:55)
[2017-11-17] MEDS: ASPIRIN 325 MG TAB PO SCH (08:55)
[2017-11-17] MEDS: GABAPENTIN 300 MG CAP PO SCH ×3 (08:55→20:24)
[2017-11-17] MEDS: POLYSACCHARIDE IRON COM 150 MG PO SCH (08:55)
[2017-11-17] MEDS: SUCRALFATE 1 GM TAB PO SCH ×2 (15:55→20:24)
--- NOTE | 2017-11-17 16:16 | PT ECF NOTE ---
Type of Note: Initial Note Primary Medical Diagnosis: Generalized weakness s/p left hip hemiarthroplasty following traumatic fracture. L) LE WBAT with posterior hip precautions. Physical Therapy Evaluation Date: 11/16/17 SUBJECTIVE: Prior Hospitalization: H 11/12/17 thru 11/16/17. DOS: 11/14/[address] Chavira Prior Level of Function: Independent with dressing and toileting. Assist from [facility] for bathing, cleaning, and meal preparation Prior Living Status: Senior housing Community Services: Support adequate, Home health residential Accessibility: All needs on one level, Tub/shower combination, Elevator available Equipment Owned: Rollator, Extended tub bench Medical Complications/Past Medical History: Extensive medical hx, please refer to EMR Psychosocial Support: Sister that resides in [place] Pain Scale (0-10): 6/10 upon initial evaluation. Emotional support provided. Pt declined application of ice. OBJECTIVE: Strength: R) LE affected from previous injury and is at 4-/5 in general; L) LE not tested due to pain and s/p SHIMA. ROM: (please note any abnormalities) Decreased ROM on L) LE due to SHIMA precautions Sensation: (please note any abnormalities) no new changes to sensation per pt report. Other Neuro findings: Pt is generally impulsive and demos more ataxic like gait pattern. Bed Mobility: Min assist to maintain hip precautions due to impulsive mobility Assistive device: Bed rail Transfers: Minimum assistance; Verbal cues; CGA Assistive Device: Front wheeled walker Gait: Minimum assistance; Verbal cues; CGA Assistive device: Front wheeled walker Stairs: Not yet addressed Assistive device: Timed Up and Go (>12 seconds indicated increased risk for falls): Pt unable to stand and ambulate safely without assistance yet. 10 meter walk test (0.6m/second cannot function independently): n/a Other Objective Measures: n/a ASSESSMENT: Pt states that he is aware of SHIMA precautions and is able to verbalize them, but is not consistently able to apply them during ADL's and mobility, causing staff to provide Min assist to ensure safety with all ADL's currently. Problem List/Current Limitations: Pain, Decreased WB, Decreased activity rmay , Decreased strength, Decreased ROM, Decreased coordination, Decreased balance, Generalized weakness, Poor safety awareness, Decreased problem solving Short Term Goals: 1. Pt to be modified indep for all bed mobility and supine to/from sit transfers 2. Pt to be modified indep for sit to/from stand transfers from appropriate height surfaces 3. Pt to tolerate amblation x 100' with least restrictive and safest device 4. Pt to tolerate up/down platform step to simulate curb in his environment. Powder Room Attendant Goals: Pt to discharge to least restrictive and most supportive environment Patient Goals: Pt would like to return home with previous home healthcare support. Rehabilitation Prognosis: Fair Barriers for Discharge: Pt is rather impulsive with movement and has reported that he does not consistently use his FWW for ambulation within his home. Home Healthcare agency has reported that pt has several falls a week. PLAN: The patient will benefit from skilled physical therapy services 5 times per week for 2 weeks including: Therapeutic Exercise, Therapeutic Activities, Transfer Training, Gait Training, Stair Training, ADL's, Safety Training, Pt/ Caregiver Training, Bed Mobility Thank you for this referral. If you have any questions, concerns, or comments about this report or plan, please contact me at . h. Amara Sawyer, PT, MPT MTDD
[2017-11-17 20:08] VITALS: BP 138/82
[2017-11-17] MEDS: PRAZOSIN HCL 1 MG CAP PO SCH (20:24)
[2017-11-18] MEDS: SUCRALFATE 1 GM TAB PO SCH ×4 (05:15→20:22)
[2017-11-18 09:00] VITALS: BP 145/77
[2017-11-18] MEDS: ASPIRIN 325 MG TAB PO SCH (09:22)
[2017-11-18] MEDS: DOCUSATE SODIUM 100 MG CAP PO SCH ×2 (09:22→20:22)
[2017-11-18] MEDS: POLYSACCHARIDE IRON COM 150 MG PO SCH (09:22)
[2017-11-18] MEDS: GABAPENTIN 300 MG CAP PO SCH ×3 (09:22→20:21)
[2017-11-18] MEDS: DULoxetine HCL 30 MG CAPCR PO SCH (09:22)
[2017-11-18 17:00] VITALS: BP 130/80
[2017-11-18] MEDS: PRAZOSIN HCL 1 MG CAP PO SCH (20:22)
[2017-11-19] MEDS: SUCRALFATE 1 GM TAB PO SCH ×4 (06:30→20:12)
[2017-11-19 07:21] VITALS: BP 145/82
[2017-11-19] MEDS: DOCUSATE SODIUM 100 MG CAP PO SCH ×2 (08:53→20:12)
[2017-11-19] MEDS: ASPIRIN 325 MG TAB PO SCH (08:53)
[2017-11-19] MEDS: POLYSACCHARIDE IRON COM 150 MG PO SCH (08:53)
[2017-11-19] MEDS: GABAPENTIN 300 MG CAP PO SCH ×3 (08:54→20:13)
[2017-11-19] MEDS: DULoxetine HCL 30 MG CAPCR PO SCH (08:54)
[2017-11-19 15:25] VITALS: BP 152/91
[2017-11-19] MEDS: PRAZOSIN HCL 1 MG CAP PO SCH (20:13)
[2017-11-20] MEDS: SUCRALFATE 1 GM TAB PO SCH ×4 (05:35→21:40)
[2017-11-20 08:05] VITALS: BP 151/92
[2017-11-20] MEDS: ASPIRIN 325 MG TAB PO SCH (08:53)
[2017-11-20] MEDS: DULoxetine HCL 30 MG CAPCR PO SCH (08:53)
[2017-11-20] MEDS: DOCUSATE SODIUM 100 MG CAP PO SCH ×2 (08:53→21:39)
[2017-11-20] MEDS: GABAPENTIN 300 MG CAP PO SCH ×3 (08:53→21:39)
[2017-11-20] MEDS: POLYSACCHARIDE IRON COM 150 MG PO SCH (08:53)
[2017-11-20 17:36] VITALS: BP 190/109
[2017-11-20] MEDS: PRAZOSIN HCL 1 MG CAP PO SCH (21:39)
[2017-11-21] MEDS: SUCRALFATE 1 GM TAB PO SCH ×4 (05:23→21:02)
[2017-11-21 07:45] VITALS: BP 143/92
[2017-11-21] MEDS: ASPIRIN 325 MG TAB PO SCH (08:55)
[2017-11-21] MEDS: GABAPENTIN 300 MG CAP PO SCH ×3 (08:55→21:02)
[2017-11-21] MEDS: DULoxetine HCL 30 MG CAPCR PO SCH (08:55)
[2017-11-21] MEDS: POLYSACCHARIDE IRON COM 150 MG PO SCH (08:55)
[2017-11-21] MEDS: DOCUSATE SODIUM 100 MG CAP PO SCH ×2 (08:55→21:02)
[2017-11-21 17:05] VITALS: BP 142/91
[2017-11-21] MEDS: PRAZOSIN HCL 1 MG CAP PO SCH (21:02)
[2017-11-22] MEDS: SUCRALFATE 1 GM TAB PO SCH ×4 (05:45→20:57)
[2017-11-22 08:10] VITALS: BP 120/78
[2017-11-22] MEDS: ASPIRIN 325 MG TAB PO SCH (08:47)
[2017-11-22] MEDS: DOCUSATE SODIUM 100 MG CAP PO SCH ×2 (08:47→20:57)
[2017-11-22] MEDS: DULoxetine HCL 30 MG CAPCR PO SCH (08:47)
[2017-11-22] MEDS: GABAPENTIN 300 MG CAP PO SCH ×3 (08:47→20:57)
[2017-11-22] MEDS: POLYSACCHARIDE IRON COM 150 MG PO SCH (08:47)
[2017-11-22 15:30] VITALS: BP 152/97
[2017-11-22] MEDS: PRAZOSIN HCL 1 MG CAP PO SCH (20:57)
[2017-11-23] MEDS: SUCRALFATE 1 GM TAB PO SCH ×4 (05:36→20:21)
[2017-11-23 09:00] VITALS: BP 137/87
--- NOTE | 2017-11-23 09:41 | Medical Nutrition Therapy ---
Nutrition Anthropometrics Height (Inches): 67.00 Height (Calculated Centimeters: 170.332354 Weight (Pounds): 162 Weight (Calculated Kilograms): 73.482 BMI Calculated: 24.93 Lamin Nutrition Score: Adequate Lamin Nutrition Risk Score: 16 Dietary Referral Nutrition Risk Factors: Unplanned Loss >10lbs Nutrition Risk Comment: Nutritional Diagnosis Nutritional Risk Acuity 3: Hepatitis (C) Nutritional Risk Acuity 4: Good Appetite Past Medical History: HTN, BPH, chronic pain, depression, stroke Nutritional Acuity: 3-Mild Nutrition Problem/Etiology/Sym: No nutrition diagnosis at this time. Energy Requirement: 1861 (MSJ AF1.3) Protein Requirement: 60 (0.8g/kg) Fluid Requirement: 1865 (25mL/kg) Food Likes: Hot roast beef with kenyan cheddar sandwich on a bun Nutrition Monitoring & Eval Nutrition Goals: Eat 75-100% Meal Nutrition Follow-Up: Good Intake RD Patient Assessment Time: [address] Assessment Type: RD Assessment Patient Nutrition Acuity: 3-Mild Follow Up Date: Nov 30, 2017 Nutritional Comment: 11/16)Pt. admitted post hip replacement. Labs form med floor 11/15) Na 134, Creat 0.6, Glu 135 Hx: HTN, BPH, chronic pain, depression, stroke, CVA, gastric ulcer, hep C. Regular diet, po intake 99% x 5 meals. 11/23 Pt cont regtualr diet, eating 75- 100% of meals. No new labs. Will cont to monitor and encourage intake. JEREMIE MARQUEZ Nov 23, 2017 09:41
[2017-11-23] MEDS: ASPIRIN 325 MG TAB PO SCH (09:42)
[2017-11-23] MEDS: GABAPENTIN 300 MG CAP PO SCH ×3 (09:43→20:21)
[2017-11-23] MEDS: DOCUSATE SODIUM 100 MG CAP PO SCH ×2 (09:43→20:21)
[2017-11-23] MEDS: DULoxetine HCL 30 MG CAPCR PO SCH (09:43)
[2017-11-23] MEDS: POLYSACCHARIDE IRON COM 150 MG PO SCH (09:44)
[2017-11-23 15:15] VITALS: BP 140/80
[2017-11-23] MEDS: PRAZOSIN HCL 1 MG CAP PO SCH (20:21)
[2017-11-24] MEDS: SUCRALFATE 1 GM TAB PO SCH ×4 (05:37→20:37)
[2017-11-24 08:06] VITALS: BP 128/71
[2017-11-24] MEDS: DOCUSATE SODIUM 100 MG CAP PO SCH ×2 (09:16→20:37)
[2017-11-24] MEDS: ASPIRIN 325 MG TAB PO SCH (09:16)
[2017-11-24] MEDS: POLYSACCHARIDE IRON COM 150 MG PO SCH (09:16)
[2017-11-24] MEDS: DULoxetine HCL 30 MG CAPCR PO SCH (09:17)
[2017-11-24] MEDS: GABAPENTIN 300 MG CAP PO SCH ×3 (09:17→20:37)
--- NOTE | 2017-11-24 11:53 | Hospitalist Progress Note ---
Subjective Progress Notes Subjective Doing well. Having some pain due to muscle spasm. Physical Exam Vital Signs Date Time Temp Pulse Resp B/P (MAP) Pulse Ox O2 Delivery O2 Flow Rate FiO2 11/24/17 10:30 93 Room Air 11/24/17 08:06 97.8 85 18 128/71 (90) 11/24/17 05:37 2.0 Intake and Output 11/25/17 07:00 Intake Total 480 ml Balance 480 ml Intake Oral 480 ml # Voids 1 General Appearance: Alert, Awake, No Acute Distress, Afebrile Neuro: No Gross deficits ENT: Moist Mucous Membranes Cardiovascular: Regular Rate and Rhythm Respiratory: Clear to Auscultation GI: Soft and Non-Tender, Other (BS +) Extremities: Warm, Perfused, Other (No edema. Cody hose in place.) Psych: Alert & Oriented X3, Appropriate Mood & Affect Assessment and Plan Problems: (1) Closed left hip fracture Status: Acute Assessment & Plan: He had hip replacement with Dr. Chavira 11/14/17. He will continue aspirin 325mg daily DVT prophylaxis post-op (30 days). He was transferred to [facility] for acute rehab and is progressing. Will be discharged soon. (2) Depression Status: Chronic Assessment & Plan: He is on chronic treatment with duloxetine and gabapentin, which have been continued. Time Spent on Plan of Care: < 30 min DORINA SIERRA MD Nov 24, 2017 11:53
--- NOTE | 2017-11-24 11:59 | Hospitalist Depart ---
Discharge Summary Reason for Hosp/Final Diag: (1) Closed left hip fracture Status: Acute Hospital Course & Plan: S/p hip replacement with Dr. Chavira 11/14/17. He was placed on aspirin 325mg daily for DVT prophylaxis post-op (30 days). He was transferred to [facility] for acute rehab and progressed. He was discharged with Home Health. (2) Depression Status: Chronic Hospital Course & Plan: He is on chronic treatment with duloxetine and gabapentin, which were continued during his stay on ECF. Departure Weight (Pounds): 156 Weight (Ounces): 8.0 Condition: Improved Discharge: Home, Home Health PT/OT Follow Up For: PT For Surgical Rehab, OT For ADL's Home Health RN Follow Up For: Nursing Assessment Home Health CASE FINISHER Follow Up For: ADL Assistance Time Spent: < 30 min Discharge Instructions Home Meds Active Scripts Oxycodone HCl (Oxycodone HCl ER) 15 Mg Tab.er.12h, 1 TAB PO Q12H, #60 TAB 0 Refills may fill on or after 11/07/17 Prov:LILLI ZAPATA APRN-C 10/29/17 Gabapentin (GABAPENTIN) 600 Mg Tablet, 2 CAP PO TID, #180 CAP 5 Refills Prov:LILLI ZAPATA APRN-C 10/19/17 Tizanidine Hcl (TIZANIDINE HCL) 4 Mg Capsule, 4 MG PO TID Y for SPASMS, #90 CAPSULE 1 Refill Prov:LILLI ZAPATA APRN-C 10/05/17 Ranitidine Hcl (ZANTAC) 150 Mg Tablet, 150 MG PO DAILY for 90 Days, #90 TAB 3 Refills Prov:LILLI ZAPATA APRN-C 09/15/17 Duloxetine Hcl (CYMBALTA) 60 Mg Capsule.dr, 1 TAB PO DAILY, #90 TAB 1 Refill Prov:LILLI ZAPATA APRN-C 09/09/17 Sucralfate (CARAFATE) 1 Gm Tablet, 1 GM PO ACHS, #120 TAB 5 Refills Prov:LILLI ZAPATA APRNC 08/25/17 Cyanocobalamin (Vitamin B-12) (B-12) 500 Mcg Tablet, 500 MCG PO QDAY, #90 TAB Prov:IZA MEHTA MD 10/29/16 Reported Medications Prazosin Hcl (PRAZOSIN HCL) 2 Mg Capsule, 2 MG PO HS, CAPSULE 11/16/17 Iron Polysaccharides Complex (POLYSACCHARIDE IRON 150) 150 Mg Capsule, 150 MG PO , CAPSULE 11/12/17 Follow up Referrals: Internal Medicine - In One Month @ [facility] with LE Pillai Diet: Regular Activity: As Tolerated Copies to: LILLI ZAPATA APRN-C Venous Thromboembolism VTE Risk Physician Assess for VTE Risk: Yes Patient's VTE Risk: Low VTE Diagnostic Test 2 Days Prior to Admit: No Antithrombotics Is Pt On Any Antithrombotics?: Yes (DVT prophylaxis per ortho with ASA 325mg daily.) [id number] Certification Face to Face Home Health Certification Institutional Provider conducted the [id number] encounter. Electronic Undersigning Physician Certifies Home Health. I certify that the patient has been under my care and that I had a [id number] encounter that meets the physician vmfo-kr-[id number] encounter requirements with this patient. This patient is home-bound due to safety issues and continues to require assistance with ADL's. I certify that based on my findings, that Nursing, Aides and the following Home Health services are medically necessary: OT/PT Medical Necessity: Nursing, Rehab Date Face to Face Conducted: Nov 24, 2017 DORINA SIERRA MD Nov 24, 2017 11:59
[2017-11-24 16:25] VITALS: BP 143/89
[2017-11-24] MEDS: PRAZOSIN HCL 1 MG CAP PO SCH (20:37)
[2017-11-25] MEDS: SUCRALFATE 1 GM TAB PO SCH ×4 (05:05→20:36)
[2017-11-25 08:30] VITALS: BP 126/75
[2017-11-25] MEDS: DULoxetine HCL 30 MG CAPCR PO SCH (09:11)
[2017-11-25] MEDS: DOCUSATE SODIUM 100 MG CAP PO SCH ×2 (09:11→20:36)
[2017-11-25] MEDS: POLYSACCHARIDE IRON COM 150 MG PO SCH (09:11)
[2017-11-25] MEDS: ASPIRIN 325 MG TAB PO SCH (09:11)
[2017-11-25] MEDS: GABAPENTIN 300 MG CAP PO SCH ×3 (09:12→20:36)
[2017-11-25 16:50] VITALS: BP 181/91
[2017-11-25] MEDS: PRAZOSIN HCL 1 MG CAP PO SCH (20:36)
[2017-11-26] MEDS: SUCRALFATE 1 GM TAB PO SCH (05:52)
[2017-11-26 07:45] VITALS: BP 145/92
[2017-11-26 08:05] VITALS: BP 122/60
[2017-11-26] MEDS: DOCUSATE SODIUM 100 MG CAP PO SCH (09:00)
[2017-11-26] MEDS: ASPIRIN 325 MG TAB PO SCH (09:05)
[2017-11-26] MEDS: POLYSACCHARIDE IRON COM 150 MG PO SCH (09:05)
[2017-11-26] MEDS: DULoxetine HCL 30 MG CAPCR PO SCH (09:05)
[2017-11-26] MEDS: GABAPENTIN 300 MG CAP PO SCH (09:05)
--- NOTE | 2017-11-26 11:56 | OT ECF NOTE ---
Type of Note: Discharge Note Primary Medical Diagnosis: Generalized weakness s/p left hip hemiarthroplasty. L LE WBAT with posterior hip precautions. Occupational Therapy Evaluation Date: 11/16/17 SUBJECTIVE: Prior Hospitalization: H 11/12/17 thru 11/16/17. DOS: 11/14/[address] Chavira Prior Level of Function: Independent with dressing and toileting. Assist from [facility] for bathing, cleaning, and meal preparation Prior Living Status: Senior housing Community Services: Support adequate, Home health [facility] Accessibility: All needs on one level, Tub/shower combination Equipment Owned: Rollator, Extended tub bench Medical Complications/Past Medical History: Extensive medical hx, please refer to EMR Psychosocial Support: Sister that resides in [place] Pain Scale (0-10): 6/10 upon initial evaluation. Emotional support provided. Pt declined application of ice. OBJECTIVE: Strength: MMT: Right Left Shoulder Flexion WFL WFL Elbow Flexion WFL WFL Wrist Extension WFL WFL Handbag Parts Cutter WFL WFL (5= normal, 4= good, 3= fair, 2= poor, 1= trace) ROM: Both upper extremities, WFL Functional Transfer: Assistive Device: 4WW Transfer Ability: Modified Independent with 4WW ADL: Upper body dressing: Assistive device: Upper body dressing ability: Independent Lower body dressing: Assistive device: Sock aide/assistant press operator offset. HH will assist with donning/doffing of roel hose. Lower body dressing ability: Modified Independent Toileting: Assistive device: Raised toilet seat Toileting ability: Modified Independent Grooming/hygiene: Assistive device: Seated Grooming ability: Independent Bathing: Assistive device: Extended tub transfer bench Bathing ability: Minimum assistance-Pt will have assist for all bathing from services. Standardized Assessment: Luis Felipe Index of Activities of Daily Livin/20 upon initial evaluation (). at discharge date (11/26/17). ASSESSMENT: "Brain" sustained a fall at home resulting in L hip fx and subsequent L hip hemiarthroplasty. At OF, he was independent with dressing and toileting. He has met all skilled OT goals and desire to discharge home at current level of function. He is able to recall 3/3 posterior hip precautions and verbalizes understanding of adherence to precautions. He verbalizes understanding of safe use of 4WW and use of AE for ADLs. Problem List/Current Limitations: Pain Decreased activity tolerance Decreased ROM Decreased coordination Decreased balance Generalized weakness Poor safety awareness Decreased problem solving Short Term Goals: 1) Pt will be SBA UB/LB dressing with AE. Goal Met. 2) Pt will be SBA toilet task. Goal Met. 3) Pt will be SBA grooming/hygiene. Goal Met. 4) Pt will be Min A shower task. Goal Met. 5) Pt Luis Felipe Index of ADLs score will increase by 2 points. Goal Met. Floor Coverings Installer Goals: Return home with increased HH services Patient Goals: Return home Rehabilitation Prognosis: Good Barriers to Discharge: Extensive medical hx, poor safety awareness PLAN: The patient plans to discharge home with assist from sister, prepared meals, PT/OT, and [facility] BUILDING MAINTENANCE REPAIRER assist 5x/week. Thank you for this referral. If you have any questions, concerns, or comments about this report or plan, please contact me at . Asiya Centeno MS, OTR/L Occupational Therapist JEB
--- NOTE | 2017-11-26 15:59 | PT ECF NOTE ---
Type of Note: Discharge Summary Primary Medical Diagnosis: Generalized weakness s/p left hip hemiarthroplasty following traumatic fracture. L) LE WBAT with posterior hip precautions. Physical Therapy Evaluation Date: 11/16/17 SUBJECTIVE: Prior Hospitalization: [facility] 11/12/17 thru 11/16/17. DOS: 11/14/[address] Chavira Prior Level of Function: Independent with dressing and toileting. Assist from [facility] for bathing, cleaning, and meal preparation Prior Living Status: Senior housing Community Services: Support adequate, Home health retirement Accessibility: All needs on one level, Tub/shower combination, Elevator available Equipment Owned: Rollator, Extended tub bench Medical Complications/Past Medical History: Extensive medical hx, please refer to EMR Psychosocial Support: Sister that resides in [place] Pain Scale (0-10): Pt reports pain is never lower than at 5/10. OBJECTIVE: Strength: R) LE affected from previous injury and is at 4-/5 in general; L) LE not tested due to pain and s/p SHIMA. ROM: (please note any abnormalities) Decreased ROM on L) LE due to SHIMA precautions Sensation: (please note any abnormalities) no new changes to sensation per pt report. Other Neuro findings: Pt is generally impulsive and demos more ataxic like gait pattern. Bed Mobility: Mod I with and without bed rail. Pt has a bed rail at home for use. Good adherence to hip precautions. Assistive device: Bed rail Transfers: Mod I with good adherence to hip precautions. Assistive Device: Rollator Gait: Mod I with Rollator walker x 200-300' with good adherence to hip precautions. Assistive device: Rollator Stairs: Ascend/descend 1 step to simulate curb with SBA. ASSESSMENT: Pt has met PT goals and is safe to return home and continue physical therapy with home health. Problem List/Current Limitations: Pain, Decreased WB, Decreased activity ramy , Decreased strength, Decreased ROM, Decreased coordination, Decreased balance, Generalized weakness, Poor safety awareness, Decreased problem solving Short Term Goals: 1. Pt to be modified indep for all bed mobility and supine to/from sit transfers 2. Pt to be modified indep for sit to/from stand transfers from appropriate height surfaces 3. Pt to tolerate amblation x 100' with least restrictive and safest device 4. Pt to tolerate up/down platform step to simulate curb in his environment. Pneumatic Tube Repairer Goals: Pt to discharge to least restrictive and most supportive environment Patient Goals: Pt would like to return home with previous home healthcare support. Rehabilitation Prognosis: Fair Barriers for Discharge: Pt is rather impulsive with movement and has reported that he does not consistently use his FWW for ambulation within his home. Home Healthcare agency has reported that pt has several falls a week. PLAN: DC home with continued therapy with home health. Thank you for this referral. If you have any questions, concerns, or comments about this report or plan, please contact me at . Rowan Cole PT, DPT, GCS MTDD
== END 2017-11-26 10:32 | disposition home health service (06) | DRG 561 ==
LOC: UNDOADMIN 10:05 → SWB 10:05
PROVIDERS: ADMIT Internal Medicine; ATTEND Internal Medicine
DX: S72.002D Fracture of unspecified part of neck of left femur, subsequent encounter for closed fracture with routine healing (principal); F32.9 Major depressive disorder, single episode, unspecified; N40.0 Benign prostatic hyperplasia without lower urinary tract symptoms; B18.2 Chronic viral hepatitis C; K25.7 Chronic gastric ulcer without hemorrhage or perforation; Z96.651 Presence of right artificial knee joint; Z86.73 Personal history of transient ischemic attack (TIA), and cerebral infarction without residual deficits; Z96.642 Presence of left artificial hip joint
CPT/HCPCS: 97161; 97165

== ENCOUNTER 2017-11-28 12:21 | Inpatient (IN) | payer MEDICARE, MEDICAID ==
[2017-11-12 15:17] VITALS: Wt 75.5 kg
[~2017-11-28 12:21] MED LIST changes: -ASPI-764 PO; -CEPH500C24 PO; -PER PO
--- NOTE | 2017-11-28 12:22 | ER Report ---
History and Physical Time Seen By MD: 12:21 HPI/ROS CHIEF COMPLAINT: Bleeding from surgical site HISTORY OF PRESENT ILLNESS:Patient is a 67-year-old male who is brought to the emergency department by ambulance for postoperative bleeding to his left total hip replacement. Patient fell on November 12 fracturing his hip. He subsequently had a total hip replacement on November [address] Ramon and was discharged from the hospital to assisted care facility on November 16. Today patient noticed that a portion of his incision has opened and he is having some oozing from this site. Patient has otherwise had no complications for this surgery. REVIEW OF SYSTEMS: Respiratory: No cough, no dyspnea. Cardiovascular: No chest pain, no palpitations. Gastrointestinal: No vomiting, no abdominal pain. Musculoskeletal: No back pain. Allergies: Coded Allergies: No Known Drug Allergies (Unverified , 11/28/17) Home Meds Active Scripts Oxycodone/Acetaminophen (OXYCODONE/ACETAMINOPHEN 5MG/325 MG) 5 Mg/325 Mg Tab, 1- 2 TAB PO Q6H Y for PAIN, #30 TAB 0 Refills Prov:SMILEY BETTENCOURT MD 11/30/17 Cephalexin Monohydrate (CEPHALEXIN) 500 Mg Cap, 500 MG PO QID for 7 Days, #28 CAP 0 Refills Prov:SMILEY BETTENCOURT MD 11/30/17 Aspirin (ASPIRIN EC) 325 Mg Tablet.dr, 325 MG PO QDAY for 30 Days, #30 TAB 0 Refills Prov:SMILEY BETTENCOURT MD 11/30/17 Oxycodone HCl (Oxycodone HCl ER) 15 Mg Tab.er.12h, 1 TAB PO Q12H, #60 TAB 0 Refills Prov:SMILEY BETTENCOURT MD 11/30/17 Gabapentin (GABAPENTIN) 600 Mg Tablet, 2 CAP PO TID, #180 CAP 5 Refills Prov:LILLI ZAPATA APRN-C 10/19/17 Tizanidine Hcl (TIZANIDINE HCL) 4 Mg Capsule, 4 MG PO TID Y for SPASMS, #90 CAPSULE 1 Refill Prov:LILLI ZAPATA APRN-C 10/05/17 Ranitidine Hcl (ZANTAC) 150 Mg Tablet, 150 MG PO DAILY for 90 Days, #90 TAB 3 Refills Prov:LILLI ZAPATA APRN-C 09/15/17 Duloxetine Hcl (CYMBALTA) 60 Mg Capsule.dr, 1 TAB PO DAILY, #90 TAB 1 Refill Prov:LILLI ZAPATA FRANSISCA SERVICE ATTENDANT CAFET[facility]IA-Thee 09/09/17 Sucralfate (CARAFATE) 1 Gm Tablet, 1 GM PO ACHS, #120 TAB 5 Refills Prov:JOSÉ MIGUEL ZAPATARIYA WINTERSP-Thee 08/25/17 Cyanocobalamin (Vitamin B-12) (B-12) 500 Mcg Tablet, 500 MCG PO QDAY, #90 TAB Prov:IZA MEHTA MD 10/29/16 Reported Medications Prazosin Hcl (PRAZOSIN HCL) 2 Mg Capsule, 2 MG PO HS, CAPSULE 11/16/17 Iron Polysaccharides Complex (POLYSACCHARIDE IRON 150) 150 Mg Capsule, 150 MG PO DAILY, CAPSULE 11/12/17 Past Medical/Surgical History Status post left total hip replacement on 11/14/2017 Hx Smoking: No Smoking Status: Never Smoker Exposure to Second Hand Smoke?: Yes Hx Substance Use Disorder: No Hx Alcohol Use: Yes Constitutional Vital Sign - Last 24 Hours 11/28/17 11/28/17 11/28/17 11/28/17 12:21 12:30 12:45 13:00 Temp 98.9 Pulse 92 87 89 85 Resp 18 B/P (MAP) 123/80 137/58 (84) Pulse Ox 87 95 96 95 O2 Delivery Room Air 11/28/17 11/28/17 11/28/17 11/28/17 13:30 13:45 14:00 14:15 Pulse 83 83 84 85 B/P (MAP) 116/77 (90) 121/82 (95) Pulse Ox 96 96 98 95 11/28/17 11/28/17 14:30 14:45 Pulse 75 75 B/P (MAP) 128/80 (96) Pulse Ox 97 95 Physical Exam General Appearance: The patient is alert, has no immediate need for airway protection and no current signs of toxicity. Eyes: Pupils equal and round no injection. Respiratory: Chest is non tender, lungs are clear to auscultation. Cardiac: regular rate and rhythm [ ] Gastrointestinal: Abdomen is soft and non tender, no masses, bowel sounds normal. Musculoskeletal: Neck: Neck is supple and non tender. Extremities have full range of motion and are non tender. Skin: No rashes or lesions. Patient has open wound to the left hip surgical site approximal 1 cm in length. There is active oozing from the site. Medical Decision Making Data Points Result Diagram: 11/30/17 0547 11/30/17 0547 Laboratory Hematology Test 11/28/17 11:30 11/28/17 12:30 11/28/17 12:49 Erythrocyte Sedimentation Rate 40 mm/HOUR (0-20) Peripheral Blood Smear Yes Y/N Prothrombin Time 14.3 seconds (12.0-14.4) Prothromb Time International Ratio 1.11 Chemistry Test 11/28/17 11:30 11/28/17 12:30 11/28/17 12:49 Erythrocyte Sedimentation Rate 40 mm/HOUR (0-20) Peripheral Blood Smear Yes Y/N Prothrombin Time 14.3 seconds (12.0-14.4) Prothromb Time International Ratio 1.11 Coagulation Test 11/28/17 12:49 Prothrombin Time 14.3 seconds Prothromb Time International Ratio 1.11 Microbiology Microbiology Date/Time Source Procedure Growth Status 11/28/17 14:50 Blood Peripheral Draw Blood Culture - Preliminary NO GROWTH AFTER 3 DAYS, REINCUBATED Resulted 11/28/17 14:37 Blood Peripheral Draw Blood Culture - Preliminary NO GROWTH AFTER 3 DAYS, REINCUBATED Resulted 11/28/17 00:00 Fine Needle Aspirate Gram Stain - Final Complete 11/28/17 00:00 Fine Needle Aspirate Body Fluid Culture - Final No growth after 3 days Complete 11/28/17 00:00 Fine Needle Aspirate Anaerobic Culture - Final NO GROWTH AFTER 2 DAYS Complete 11/28/17 00:00 Fine Needle Aspirate Gram Stain - Final Complete 11/28/17 00:00 Fine Needle Aspirate Body Fluid Culture - Final No growth after 3 days Complete 11/28/17 00:00 Fine Needle Aspirate Anaerobic Culture - Final NO GROWTH AFTER 2 DAYS Complete 11/28/17 00:00 Fine Needle Aspirate Gram Stain - Final Complete 11/28/17 00:00 Fine Needle Aspirate Body Fluid Culture - Final No growth after 3 days Complete 11/28/17 00:00 Fine Needle Aspirate Anaerobic Culture - Final NO GROWTH AFTER 2 DAYS Complete EKG/Imaging Imaging FACILITY: [facility] - [place] PATIENT NAME: Saravanan William : 1950 MR: [id number] V: [id number] EXAM DATE: ORDERING PHYSICIAN: NARCISA RIVAS TECHNOLOGIST: Location: [facility] [place] Patient: Saravanan William : 1950 Visit/Account:[id number] Date of Sevice: 11/28/2017 Examination: HIP LEFT W CONTRAST Comparison: Radiographs 11/14/2017 and earlier History: bleeding from surgical site. Surgery on 11/14/2017. Procedure: Multiplanar CT left hip with 75 mL intravenous Isovue 370. One of the following dose optimization techniques was utilized in the performance of this exam: Automated exposure control; adjustment of the mA and/ or kV according to the patient's size; or use of an iterative reconstruction technique. Specific details can be referenced in the facility's radiology CT exam operational policy. Findings: Left hip bipolar hemiarthroplasty. Arthroplasty alignment is within normal limits with no evidence of periprosthetic fracture or lucency. The visualized portions of the pelvis are intact; pubic symphysis and left sacroiliac joint alignment is maintained. Lumbosacral alignment is within normal limits although there is moderate degenerative disc disease at L5-S1. Sacrococcygeal alignment is preserved. 13.5 x 4.6 x 6.2 cm irregularly shaped rim-enhancing gas and fluid collection within the deep soft tissues lateral to the greater trochanter. The cephalad component of the collection is located within the musculature between the gluteus major and gluteus medius. There is a small amount of gas within the posterior joint space and along the posterior greater trochanter as well; this could potentially communicate with the dominant gas and fluid collection although evaluation in this region is limited by artifact from the arthroplasty. No other soft tissue gas or fluid collection is identified. No evidence of acute disease within the visualized pelvis. Mild diverticulosis along the visualized colon. IMPRESSION: 1. 13.5 x 4.6 x 6.2 cm irregularly-shaped rim-enhancing gas and fluid collection within the deep soft tissues lateral to the greater trochanter. The appearance is most concerning for an abscess with a benign postoperative collection considered less likely. 2. Small amount of gas within the posterior joint joint space. This could potentially communicate with the dominant gas collection and hardware infection cannot be excluded. 3. Normal postoperative alignment of the left bipolar hemiarthroplasty with no evidence of acute fracture. Results were discussed with NARCISA RIVAS at 11/28/2017 2:08 PM. Report Dictated By: Kishor Steel MD at 11/28/2017 1:33 PM Report E-Signed By: Kishor Steel MD at 11/28/2017 2:09 PM [id number] ED Course/Re-evaluation Clinical Indication for ER IV: IV Access ED Course 11/28/2017 2:31:[address] Maynor Villarreal from orthopedics will come in to evaluate the patient. The patient will be admitted to the medicine service under Dr. Mili Bettencourt secondary to postoperative wound infection. Patient and family members were made aware of CT scan findings which is concerning for postoperative wound infection. Patient will be started on IV vancomycin and cefepime. Blood cultures were drawn prior to starting antibiotics. No questions or concerns at time of disposition. Decision to Disposition Date: Nov 28, 2017 Decision to Disposition Time: 14:31 Depart Departure Latest Vital Signs Vital Signs Date Time Temp Pulse Resp B/P (MAP) Pulse Ox O2 Delivery O2 Flow Rate FiO2 11/28/17 14:45 75 95 11/28/17 14:30 128/80 (96) 11/28/17 12:21 98.9 18 Room Air Impression: Primary Impression: Post op infection Condition: Condition Unchanged Disposition: Admitted from ER (to Ade Bettencourt) Referrals: LILLI ZAPATA APRN SERVICE ATTENDANT CAFETERIA-C (PCP) New Scripts Oxycodone/Acetaminophen (OXYCODONE/ACETAMINOPHEN 5MG/325 MG) 5 Mg/325 Mg Tab 1-2 TAB PO Q6H Y for PAIN, #30 TAB 0 Refills Prov: SMILEY BETTENCOURT MD 11/30/17 Cephalexin Monohydrate (CEPHALEXIN) 500 Mg Cap 500 MG PO QID for 7 Days, #28 CAP 0 Refills Prov: SMILEY BETTENCOURT MD 11/30/17 Aspirin (ASPIRIN EC) 325 Mg Tablet.dr 325 MG PO QDAY for 30 Days, #30 TAB 0 Refills Prov: SMILEY BETTENCOURT MD 11/30/17 Oxycodone HCl (Oxycodone HCl ER) 15 Mg Tab.er.12h 1 TAB PO Q12H, #60 TAB 0 Refills Prov: SMILEY BETTENCOURT MD 11/30/17 Problem Qualifiers Primary Impression: Post op infection Encounter type: initial encounter Qualified Codes: T81.4XXA - Infection following a procedure, initial encounter NARCISA RIVAS MD Nov 28, 2017 12:22
[2017-11-28 12:42] LABS: PLATELET COUNT, AUTOMATED 388 K/uL (150-450)
[2017-11-28] MEDS ORDERED: MORPHINE 4 MG/ML SDV IVP ONE (12:55)
[2017-11-28] MEDS ORDERED: IOPAMIDOL 76% 75 ML INFUS BTL 75 ML ONE (13:01)
[2017-11-28 13:07] LABS: INR 1.11
--- NOTE | 2017-11-28 14:11 | RADIOLOGY IMAGING REPORT ---
FACILITY: [facility] - [place] PATIENT NAME: Saravanan William : 1950 MR: [id number] V: [id number] EXAM DATE: ORDERING PHYSICIAN: NARCISA RIVAS TECHNOLOGIST: Location: [facility] Patient: Saravanan William : 1950 Visit/Account:[id number] Date of Sevice: 11/28/2017 Examination: HIP LEFT W CONTRAST Comparison: Radiographs 11/14/2017 and earlier History: bleeding from surgical site. Surgery on 11/14/2017. Procedure: Multiplanar CT left hip with 75 mL intravenous Isovue 370. One of the following dose optimization techniques was utilized in the performance of this exam: Autom ated exposure control; adjustment of the mA and/or kV according to the patient's size; or use of an i terative reconstruction technique. Specific details can be referenced in the facility's radiology C T exam operational policy. Findings: Left hip bipolar hemiarthroplasty. Arthroplasty alignment is within normal limits with no e vidence of periprosthetic fracture or lucency. The visualized portions of the pelvis are intact; pubi c symphysis and left sacroiliac joint alignment is maintained. Lumbosacral alignment is within normal limits although there is moderate degenerative disc disease at L5-S1. Sacrococcygeal alignment is pr eserved. 13.5 x 4.6 x 6.2 cm irregularly shaped rim-enhancing gas and fluid collection within the deep soft ti ssues lateral to the greater trochanter. The cephalad component of the collection is located within t he musculature between the gluteus major and gluteus medius. There is a small amount of gas within th e posterior joint space and along the posterior greater trochanter as well; this could potentially co mmunicate with the dominant gas and fluid collection although evaluation in this region is limited by artifact from the arthroplasty. No other soft tissue gas or fluid collection is identified. No evidence of acute disease within the v isualized pelvis. Mild diverticulosis along the visualized colon. IMPRESSION: 1. 13.5 x 4.6 x 6.2 cm irregularly-shaped rim-enhancing gas and fluid collection within the deep soft tissues lateral to the greater trochanter. The appearance is most concerning for an abscess with a b enign postoperative collection considered less likely. 2. Small amount of gas within the posterior joint joint space. This could potentially communicate wit h the dominant gas collection and hardware infection cannot be excluded. 3. Normal postoperative alignment of the left bipolar hemiarthroplasty with no evidence of acute frac ture. Results were discussed with NARCISA RIVAS at 11/28/2017 2:08 PM. Report Dictated By: Kishor Steel MD at 11/28/2017 1:33 PM Report E-Signed By: Ksihor Steel MD at 11/28/2017 2:09 PM [id number]
[2017-11-28] MEDS ORDERED: CEFEPIME HCL 2 GM VIAL IVP ONE (14:25)
[2017-11-28] MEDS ORDERED: VANCOMYCIN 1 GM ADDVIAL 1 GM in NS(*) 0.9% 250 ML ADDVAN BAG 250 ML IVPB ONE (14:25)
[2017-11-28] MEDS ORDERED: metroNIDAZOLE* 500MG/100ML BAG 100 ML IVPB ONE (14:35)
[2017-11-28] MEDS ORDERED: fentaNYL CITR 100 MCG/2 ML AMP ONE (15:48)
[2017-11-28] MEDS ORDERED: MIDAZOLAM 2 MG/2 ML VIAL ONE (15:48)
[2017-11-28] MEDS ORDERED: PROPOFOL EMUL(*) 10MG/ML 20 ML 20 ML ONE (15:49)
[2017-11-28] MEDS ORDERED: DEXAMETHASONE SOD PHOS 10MG/ML ONE (15:49)
[2017-11-28] MEDS ORDERED: ONDANSETRON 4 MG/2 ML VIAL ONE (15:49)
[2017-11-28] MEDS ORDERED: LIDOCAINE MPF 1% 5 ML VIAL ONE (15:49)
[2017-11-28] MEDS ORDERED: ROCURONIUM BROM 10 MG/ML 10 ML ONE (15:49)
[2017-11-28] MEDS ORDERED: ROPIVACAINE 0.2% 20 ML VIAL ONE (16:12)
[2017-11-28] MEDS ORDERED: SUGAMMADEX SOD 500 MG/5 ML SDV ONE (17:34)
[2017-11-28] MEDS ORDERED: NS(*) 0.9% 1000 ML BAG 1,000 ML IV PRN ×2 (18:20→19:02)
[2017-11-28] MEDS ORDERED: ONDANSETRON 4 MG/2 ML VIAL IVP PRN (18:25)
[2017-11-28 18:31] VITALS: BP 146/83
--- NOTE | 2017-11-28 18:34 | History & Physical ---
History of Present Illness Chief Complaint Draining hip wound after ORIF for hip fx. History of Present Illness The patient is a 67 year old male who was recently admitted to [facility] after a fall with L hip fracture. The hip was repaired and the patient was transferred to [facility] for rehabilitation. He was discharged on November 26. He presented to the ER today complaining of drainage from the surgical wound. He states an area on the surgical wound just "popped" today and drained a large amount of bloody fluid. A CT was done in the ER and showed a 13.5 x 4.6 x 6.2 cm irregularly- shaped rim-enhancing gas and fluid collection within the deep soft tissues lateral to the greater trochanter. Dr. Villarreal, orthopedist, was consulted and recommended the patient be admitted to the hospitalist service with orthopedic consultation. The patient was taken to OR from the ER and had surgical clean out with placement of a wound vac. History Problems: (1) Chronic pain Status: Chronic (2) Anxiety Status: Chronic (3) Depression Status: Chronic (4) BPH (benign prostatic hyperplasia) Status: Chronic (5) CVA (cerebral vascular accident) Status: Chronic (6) Hepatitis C Status: Chronic (7) Hypertension Status: Chronic (8) Multiple head injury Status: Chronic (9) Spinal stenosis of lumbar region Status: Chronic (10) Closed left hip fracture Status: Acute Home Meds Active Scripts Oxycodone HCl (Oxycodone HCl ER) 15 Mg Tab.er.12h, 1 TAB PO Q12H, #60 TAB 0 Refills may fill on or after 11/07/17 Prov:LILLI ZAPATA APRNP-C 10/29/17 Gabapentin (GABAPENTIN) 600 Mg Tablet, 2 CAP PO TID, #180 CAP 5 Refills Prov:LILLI ZAPATA APRN PLANT TECHNICIAN/CONTROL ROOM OPERATOR-C 10/19/17 Tizanidine Hcl (TIZANIDINE HCL) 4 Mg Capsule, 4 MG PO TID Y for SPASMS, #90 CAPSULE 1 Refill Prov:LILLI ZAPATA APRN PLANT TECHNICIAN/CONTROL ROOM OPERATOR-C 10/05/17 Ranitidine Hcl (ZANTAC) 150 Mg Tablet, 150 MG PO DAILY for 90 Days, #90 TAB 3 Refills Prov:LILLI ZAPATA APRN PLANT TECHNICIAN/CONTROL ROOM OPERATOR-C 09/15/17 Duloxetine Hcl (CYMBALTA) 60 Mg Capsule.dr, 1 TAB PO DAILY, #90 TAB 1 Refill Prov:LILLI ZAPATA APRN 09/09/17 Sucralfate (CARAFATE) 1 Gm Tablet, 1 GM PO ACHS, #120 TAB 5 Refills Prov:LILLI ZAPATA APRN 08/25/17 Cyanocobalamin (Vitamin B-12) (B-12) 500 Mcg Tablet, 500 MCG PO QDAY, #90 TAB Prov:IZA MEHTA MD 10/29/16 Reported Medications Prazosin Hcl (PRAZOSIN HCL) 2 Mg Capsule, 2 MG PO HS, CAPSULE 11/16/17 Iron Polysaccharides Complex (POLYSACCHARIDE IRON 150) 150 Mg Capsule, 150 MG PO DAILY, CAPSULE 11/12/17 Allergies: Coded Allergies: No Known Drug Allergies (Unverified , 11/28/17) 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 Hx Smoking: No Smoking Status: Never Smoker Exposure to Second Hand Smoke?: Yes Caffeine Intake: Coffee Caffeine/Cups Per Day: 4 Hx Alcohol Use: Yes Hx Substance Use Disorder: No Social Drug Use: Former Social Drugs: Cocaine Amount Of Social Drug/s Used: TRIED 1/2 GRAM EVERY COUPLE OF DAYS History of IV Drug Use: No Review of Systems All Systems Reviewed/Normal: Yes, Except as Noted Constitutional: No Fever, No Chills Musculoskeletal: Other (L hip wound drainage as per HPI.) Psychiatric: Depression, Anxiety Exam Vital Signs Vital Signs Date Time Temp Pulse Resp B/P (MAP) Pulse Ox O2 Delivery O2 Flow Rate FiO2 11/28/17 18:45 92 144/89 (107) 97 Nasal Cannula 2.0 11/28/17 18:31 97.6 14 General Appearance: Alert, Awake, No Acute Distress, Afebrile Neuro: No Gross deficits Eyes: PERRLA Cardiovascular: Regular Rate and Rhythm (With S4 gallop.) Respiratory: No Respiratory Distress, Clear to Auscultation GI: Abd Soft and Non-Tender Extremities: Warm, Perfused, Other (Wound vac in place over L hip.) Integumentary: Other (Wound vac in place over L hip wound.) Psych: Alert & Oriented X3, Appropriate Mood & Affect Medical Decision Making Data Points Result Diagram: 11/28/17 1230 11/28/17 1230 Item Value Date Time Erythrocyte Sedimentation Rate 40 mm/HOUR H 11/28/17 1130 Calcium Level 8.9 mg/dl 11/28/17 1230 Total Bilirubin 0.6 mg/dl 11/28/17 1230 Aspartate Amino Transf (AST/SGOT) 25 U/L 11/28/17 1230 Alanine Aminotransferase (ALT/SGPT) 34 U/L 11/28/17 1230 Alkaline Phosphatase 85 U/L 11/28/17 1230 Total Protein 7.2 gm/dl 11/28/17 1230 Albumin 3.9 g/dl 11/28/17 1230 C-Reactive Protein 3.9 mg/dl H 11/28/17 1130 Prothrombin Time 14.3 seconds 11/28/17 1249 Prothromb Time International Ratio 1.11 11/28/17 1249 Blood cultures and wound/body fluid cultures pending. EKG / Imaging Imaging FACILITY: [facility] - [place] PATIENT NAME: Saravanan William : 1950 MR: [id number] V: [id number] EXAM DATE: ORDERING PHYSICIAN: NARCISA RIVAS TECHNOLOGIST: Location: [facility] Patient: Saravanan William : 1950 Visit/Account:[id number] Date of Sevice: 11/28/2017 Examination: HIP LEFT W CONTRAST Comparison: Radiographs 11/14/2017 and earlier History: bleeding from surgical site. Surgery on 11/14/2017. Procedure: Multiplanar CT left hip with 75 mL intravenous Isovue 370. One of the following dose optimization techniques was utilized in the performance of this exam: Automated exposure control; adjustment of the mA and/ or kV according to the patient's size; or use of an iterative reconstruction technique. Specific details can be referenced in the facility's radiology CT exam operational policy. Findings: Left hip bipolar hemiarthroplasty. Arthroplasty alignment is within normal limits with no evidence of periprosthetic fracture or lucency. The visualized portions of the pelvis are intact; pubic symphysis and left sacroiliac joint alignment is maintained. Lumbosacral alignment is within normal limits although there is moderate degenerative disc disease at L5-S1. Sacrococcygeal alignment is preserved. 13.5 x 4.6 x 6.2 cm irregularly shaped rim-enhancing gas and fluid collection within the deep soft tissues lateral to the greater trochanter. The cephalad component of the collection is located within the musculature between the gluteus major and gluteus medius. There is a small amount of gas within the posterior joint space and along the posterior greater trochanter as well; this could potentially communicate with the dominant gas and fluid collection although evaluation in this region is limited by artifact from the arthroplasty. No other soft tissue gas or fluid collection is identified. No evidence of acute disease within the visualized pelvis. Mild diverticulosis along the visualized colon. IMPRESSION: 1. 13.5 x 4.6 x 6.2 cm irregularly-shaped rim-enhancing gas and fluid collection within the deep soft tissues lateral to the greater trochanter. The appearance is most concerning for an abscess with a benign postoperative collection considered less likely. 2. Small amount of gas within the posterior joint joint space. This could potentially communicate with the dominant gas collection and hardware infection cannot be excluded. 3. Normal postoperative alignment of the left bipolar hemiarthroplasty with no evidence of acute fracture. Results were discussed with NARCISA RIVAS at 11/28/2017 2:08 PM. Report Dictated By: Kishor Steel MD at 11/28/2017 1:33 PM Report E-Signed By: Kishor Steel MD at 11/28/2017 2:09 PM [id number] Pre-Admit Course Medical Record Review: Yes Assessment and Plan Problems: (1) Post op infection Status: Acute Assessment & Plan: The patient was found to have abscess at his previous surgical site on CT. Dr. Villarreal took him to OR to debride the wound and he now has a wound vac in place. He has been started on Ancef. Blood and wound/body fluid cultures are pending. CRP and ESR were done prior to surgery and will be followed. (2) Closed left hip fracture Status: Acute Assessment & Plan: S/P repair. See previous admission for details. (3) Depression Status: Chronic Assessment & Plan: Continue Cymbalta and gabapentin. (4) Insomnia Status: Chronic Assessment & Plan: The patient takes prazosin 2mg at HS. (5) DVT prophylaxis Status: Acute Assessment & Plan: Will start ASA 325mg daily. Time Spent on Plan of Care: < 30 min Venous Thromboembolism Antithrombotics Is Pt On Any Antithrombotics?: Yes (ASA 325mg daily for postop hip fx repair.) Exam Sepsis Risk: No Definite Risk Problem Qualifiers (1) Post op infection: Encounter type: initial encounter Qualified Codes: T81.4XXA - Infection following a procedure, initial encounter DORINA SIERRA MD Nov 28, 2017 18:34
[2017-11-28 18:45] VITALS: BP 144/89
[2017-11-28] MEDS ORDERED: ACETAMINOPHEN 325 MG TAB PO PRN (19:05)
[2017-11-28] MEDS: PRAZOSIN HCL 1 MG CAP PO SCH (21:14)
[2017-11-28] MEDS: SUCRALFATE 1 GM TAB PO SCH (21:15)
[2017-11-28] MEDS: GABAPENTIN 300 MG CAP PO SCH (21:15)
[2017-11-29] VITALS (12 sets, daily range): BP systolic 111–168; BP diastolic 61–95
[2017-11-29] MEDS ORDERED: NS(*) 0.9% 250 ML BAG 250 ML in NS(*) 0.9% 250 ML BAG 250 ML IV PRN (00:15)
[2017-11-29] MEDS ORDERED: NS(*) 0.9% 250 ML BAG 250 ML ONE (01:32)
[2017-11-29] MEDS: ceFAZolin(*) 2GM/D5W 50ML 50 ML IVPB SCH ×3 (01:37→16:29)
[2017-11-29] MEDS: DIAZEPAM 5 MG TAB PO PRN ×3 (01:38→21:20)
[2017-11-29] MEDS: SUCRALFATE 1 GM TAB PO SCH ×4 (05:51→21:20)
[2017-11-29 06:28] LABS: PLATELET COUNT, AUTOMATED 326 K/uL (150-450)
[2017-11-29] MEDS: INSULIN HUM LISPRO 100 UN/ML 3 ML VIAL SUBQ PRN ×2 (09:06→12:07)
[2017-11-29] MEDS: DOCUSATE CALCIUM 240 MG CAP PO SCH (09:08)
[2017-11-29] MEDS: DULoxetine HCL 30 MG CAPCR PO SCH (09:08)
[2017-11-29] MEDS: GABAPENTIN 300 MG CAP PO SCH ×3 (09:08→21:20)
[2017-11-29] MEDS: CYANOCOBALAMIN 100 MCG TAB PO SCH (09:09)
[2017-11-29] MEDS: POLYSACCHARIDE IRON COM 150 MG PO SCH (09:09)
[2017-11-29] MEDS: RANITIDINE HCL 150 MG TAB PO SCH (09:09)
[2017-11-29] MEDS: ASPIRIN 325 MG ENTERIC COATED PO SCH (09:09)
--- NOTE | 2017-11-29 13:32 | Hospitalist Progress Note ---
Subjective Progress Notes Subjective He reports feeling improved. Physical Exam Vital Signs Date Time Temp Pulse Resp B/P (MAP) Pulse Ox O2 Delivery O2 Flow Rate FiO2 11/29/17 11:16 95 11/29/17 11:08 98.4 101 16 131/73 (92) Nasal Cannula 1.0 Intake and Output 11/30/17 07:00 Intake Total 830 ml Output Total 1050 ml Balance -220 ml Intake Oral 700 ml IV Total 130 ml Output Urine Total 1050 ml General Appearance: Alert, Awake Cardiovascular: Regular Rate and Rhythm Respiratory: Clear to Auscultation Musculoskeletal: Other (left hip incision with wound vacuum in place/no surrounding erythema noted) Psych: Alert & Oriented X3 Result Diagram: 11/29/1759 11/29/17 0559 Assessment and Plan Problems: (1) Post op infection Status: Acute Assessment & Plan: The patient was found to have abscess at his previous surgical site. Dr. Villarreal took him to OR to debride the wound and he now has a wound vacuum in place. He has been started on IV Ancef. Blood and wound/body fluid cultures are pending. CRP and ESR were done prior to surgery and will be followed. Will discuss length of IV therapy with orthopedics. (2) Closed left hip fracture Status: Acute Assessment & Plan: S/P replacement. See previous admission for details. Will have PT/OT see. (3) Depression Status: Chronic Assessment & Plan: Continue Cymbalta and gabapentin. (4) DVT prophylaxis Status: Acute Assessment & Plan: Will continue ASA 325mg daily. Exam Sepsis Risk: No Definite Risk Problem Qualifiers (1) Post op infection: Encounter type: initial encounter Qualified Codes: T81.4XXA - Infection following a procedure, initial encounter SMILEY SIERRA MD Nov 29, 2017 13:32
--- NOTE | 2017-11-29 15:33 | Medical Nutrition Therapy ---
Nutrition Anthropometrics Weight (Pounds): 166 Weight (Calculated Kilograms): 75.523 BMI Calculated: 24.93 Lamin Nutrition Score: Adequate Lamin Nutrition Risk Score: 18 Dietary Referral Nutrition Risk Factors: Unplanned Loss >10lbs Nutrition Risk Comment: Physical Findings Physical Appearance: WNR Skin Appearance Skin Appearance: Edema Edema Location Modifier: Edema Location: Type of Edema: Degree of Edema: Gastrointestinal Symptoms GI Symtoms: Tube Present: Bowel Sounds: Recent Bowel Pattern: Stool Characteristics: Nutrition/Food History No Significant Nutr. HX Nutritional Diagnosis Nutritional Risk Acuity 2: Abcess/Non-Healing Wound Nutritional Risk Acuity 3: Hepatitis Nutritional Risk Acuity 4: Good Appetite Past Medical History: HTN, BPH, chronic pain, depression, stroke Nutritional Acuity: 2-Moderate Nutrition Diagnosis: Increased Nutrient Needs Nutrition Etiology: Physiological Causes Nutrition Problem/Etiology/Sym: Increased Nutrient Needs related to increased demand for nutrients secondary to wound healing and infection AEB low albumin status and high C-reactive protein indicating increased stress and increased metabolic needs. Energy Requirement: 2280 ([place]: Actual BW X 1.5) Protein Requirement: 90 (Actual BW Kg X 1.2) Fluid Requirement: 2280 Nutrition Intervention: Obtain Height and Weight Nutrition Monitoring & Eval Nutrition Goals: Eat 75-100% Meal RD Patient Assessment Time: [address] Assessment Type: RD Assessment Patient Nutrition Acuity: 2-Moderate Follow Up Date: Nov 30, 2017 Nutritional Comment: Pt admitted for post op infection of L hip. Alb 3.0, CRP 4.7, Glu 157. Lispro SSI. Receiving BINH and consuming 75% of meals. Follow intake, labs, etc. GERARDO GLI Nov 29, 2017 15:33
[2017-11-29] MEDS ORDERED: ePHEDrine 25 MG/5 ML DISP.SYR IVP ONE (16:30)
[2017-11-29] MEDS: PRAZOSIN HCL 1 MG CAP PO SCH (21:20)
[2017-11-30 01:43] VITALS: BP 137/83
--- NOTE | 2017-11-30 04:16 | CONSULTATION ---
EVENT DATE: November 28, 2017 HISTORY OF PRESENT ILLNESS Mr. William is a 67-year-old male who is now two weeks status post left hip hemiarthroplasty. He was doing relatively well postoperatively until the last couple of days when he started noticing some drainage from the inferior aspect of his surgical incision. The wound was draining some serosanguineous fluid. He was not experiencing any fevers, chills, nausea, vomiting, or other constitutional symptoms. He denied any purulent discharge from the incision. He does state that he felt like his hip was doing relatively well immediately postoperatively and then over the last couple of days he began having some increasing pain, especially with ambulation. PHYSICAL EXAMINATION GENERAL: Well-appearing, well-developed male, in no acute distress. He is alert and oriented x3. Hearing is intact, and cranial nerves II-XII are intact. EXTREMITIES: Most of his surgical incision over the left hip is well healed but at the inferior aspect there is an area about 1 cm to 1.5 that is open and draining serosanguineous discharge. Attempts were made to express any purulence , and these were unsuccessful. There does seem to be a little bit of increased redness around the region of the incision, as well as perhaps some increased warmth. Lower extremity neurologic examination revealed normal strength and sensation in all myotomes and dermatomes. LABORATORY AND RADIOLOGY Imaging studies available for review include a CT scan of the left hip, which does in fact show a large fluid collection with an irregular shape and some gas just lateral to the greater trochanter along the region of the surgical approach. Laboratory examination revealed a white blood cell count of 8.9 and a CRP of 3.9. He was afebrile upon presentation. ASSESSMENT AND PLAN Mr. William has a large fluid collection that may very well be a postoperative infection. At this point, I think it is most prudent to take him to the operating room for irrigation and debridement. We will obtain cultures at that time and then begin antibiotics. JEB
--- NOTE | 2017-11-30 04:27 | OPERATIVE REPORT 1 ---
EVENT DATE: November 28, 2017 SURGEON: Pedro Villarreal MD ANESTHESIOLOGIST: Dion Barksdale MD ANESTHESIA: General endotracheal ENGINEERING TECHNICAL ANALYST: KEMI Crowley PREOPERATIVE DIAGNOSIS Left hip postoperative wound infection. POSTOPERATIVE DIAGNOSIS Left hip hematoma. PROCEDURE PERFORMED Left hip irrigation and debridement of postoperative hematoma. IV FLUIDS 900 cc ESTIMATED BLOOD LOSS 75 cc IMPLANTS None. DRAINS None. SPECIMENS 1. Superficial wound fluid. 2. Deep wound fluid. 3. Deep wound hematoma. DISPOSITION Postanesthesia Care Unit INDICATIONS Mr. William is a 67-year-old gentleman who is two weeks status post left hip hemiarthroplasty for hip fracture. He was doing well until the last couple of days when he started noticing increased pain in the left hip, as well as some drainage from the inferior aspect of the incision. He presented to the emergency department where a CT scan was obtained that showed a large fluid collection with small gas pockets. His CRP was 3.9, white blood count was 8.9, and he was afebrile. Secondary to the elevated CRP and the presence of gas and fluid collection on CT scan, he was brought to the operating room for irrigation and debridement. DESCRIPTION OF PROCEDURE The patient was brought to the operating room in good condition. After succumbing to anesthesia, he was placed in the right lateral decubitus position using the oleary bag for positioning. The wound was prepped and draped in a standard sterile orthopedic fashion. A final timeout was undertaken by members of the operating team to confirm correct surgical site and correct surgery. The incision was opened without much difficulty, and a large amount of serosanguineous fluid was found superficially. The fascial closure was opened, as well, given the fact that the fluid pocket tracked deep to this and, again, more serosanguineous fluid was encountered. Both superficial and deep fluid were sent for culture. A large amount of hematoma was also sent for culture. The wound was then irrigated with pulse lavage using 9 liters of antibiotic impregnated fluid. The wound appeared healthy with good bleeding edges. We therefore elected to close it without leaving a drain or a deep wound vac. The wound was closed in layers using a running StrataFix suture for the deep fascia , an inverted interrupted subcutaneous stitch, and then a running locking nylon for the skin. An incisional wound vac was placed. The patient was taken to the recovery room in good condition. POSTOPERATIVE CARE PLAN The patient will remain in the hospital overnight and will be given three more doses of Ancef prior to being discharged. He will leave the incisional wound vac on until the battery dies, at which point he may remove it. He will likely follow up with Dr. Chavira for further care with regard to the hemiarthroplasty. JEB
[2017-11-30] MEDS: SUCRALFATE 1 GM TAB PO SCH ×2 (05:47→10:37)
[2017-11-30 06:01] LABS: PLATELET COUNT, AUTOMATED 321 K/uL (150-450)
[2017-11-30] MEDS ORDERED: CEPH500C24 PO (08:04)
[2017-11-30] MEDS ORDERED: PER PO (08:04)
[2017-11-30] MEDS ORDERED: OXYC15TA PO (08:04)
[2017-11-30] MEDS ORDERED: ASPI-764 PO (08:04)
--- NOTE | 2017-11-30 08:22 | Hospitalist Depart ---
Discharge Summary Reason for Hosp/Final Diag: (1) Post op infection Status: Acute Hospital Course & Plan: The patient was found to have a fluid collection at his previous surgical site. Dr. Villarreal took him to OR to drain the collection. He had an incisional vacuum placed. He was initially started on IV Ancef. Blood and wound/body fluid cultures are negative thus far. Gram stain did not show any organisms as well. CRP and ESR were both moderately elevated and will need to be re-checked in 5-[address] Villarreal felt the wound did not appear to be infected and was most likely a resolving hematoma. He did want him to use the incisional vacuum for 5-7 days and complete a course of prophylactic oral antibiotics, but did not feel he would need ongoing IV antibiotics. Mr. William was doing rather well and could return home with the help of home health. He will also follow up closely with Dr. Villarreal and his primary care provider ( Lilli LUJAN). (2) Closed left hip fracture Status: Acute Hospital Course & Plan: S/P replacement. See previous admission for details. Will have PT/OT continue to see at home. (3) Depression Status: Chronic Hospital Course & Plan: Continue Cymbalta and gabapentin. (4) DVT prophylaxis Status: Acute Hospital Course & Plan: Will continue ASA 325mg daily. Departure Weight (Pounds): 166 Weight (Ounces): 8.0 Result Diagram: 11/30/17 0547 11/30/17 0547 Item Value Date Time Erythrocyte Sedimentation Rate 40 mm/HOUR H 11/28/17 1130 Item Value Date Time White Blood Count 8.9 k/uL 11/28/17 1230 Hemoglobin 13.6 g/dL L 11/28/17 1230 Hematocrit 40.0 % L 11/28/17 1230 Platelet Count 388 K/uL 11/28/17 1230 Prothrombin Time 14.3 seconds 11/28/17 1249 Prothromb Time International Ratio 1.11 11/28/17 1249 Sodium Level 135 mmol/L L 11/28/17 1230 Potassium Level 4.1 mmol/L 11/28/17 1230 Chloride Level 97 mmol/L L 11/28/17 1230 Carbon Dioxide Level 27 mmol/L 11/28/17 1230 Blood Urea Nitrogen 18 mg/dl 11/28/17 1230 Creatinine 0.90 mg/dl 11/28/17 1230 Glomerular Filtration Rate Calc > 60.0 11/28/17 1230 Random Glucose 85 mg/dl 11/28/17 1230 Calcium Level 8.9 mg/dl 11/28/17 1230 Total Bilirubin 0.6 mg/dl 11/28/17 1230 Aspartate Amino Transf (AST/SGOT) 25 U/L 11/28/17 1230 Alanine Aminotransferase (ALT/SGPT) 34 U/L 11/28/17 1230 Alkaline Phosphatase 85 U/L 11/28/17 1230 Total Protein 7.2 gm/dl 11/28/17 1230 Albumin 3.9 g/dl 11/28/17 1230 C-Reactive Protein 3.9 mg/dl H 11/28/17 1130 C-Reactive Protein 4.7 mg/dl H 11/29/17 0559 [facility] [address] [place] [address] FABI SINGH M.D., DIRECTOR OF LABORATORY SERVICES MARCI CALDERON M.D., PATHOLOGIST RUN DATE: 11/29/17 Specimen Inquiry Report PAGE 1 RUN TIME: 1103 PATIENT: LAURA WILLIAM Thee ACCT: [id number] LOC: MED U : [id number] AGE/SX: 67/M ROOM: 2274 REG : 11/28/[address]: DORINA SIERRA MD : 1950 BED: 274 DIS : STATUS: ADM IN TLOC: SPEC #: [id number] DIANDRA: 11/28/17-UNK STATUS: RES REQ #: [id number] RECD: 11/28/17 [facility] DR: ROBERTA VILLARREAL MD SOURCE: FINE NEEDL ENTR: 11/28/17-[address]: DORINA SIERRA MD [facility]: LILLI ZAPATA APRN [facility] ORDERED: CULT JESSICA A/A/ COMMENTS: Has specimen been collected/obtained? Y Comments: 1.SUPERFICIAL LEFT HIP FLUID Procedure Result Verified GRAM STAIN Final 11/28/17-1849 NO ORGANISMS SEEN MANY RED BLOOD CELLS FEW WHITE BLOOD CELLS CULTURE BODY FLUID Preliminary 11/29/17-1101 NO GROWTH AFTER 1 DAY, REINCUBATED ANAEROBE CULTURE PENDING [facility] *LIVE* [address] [place] [address] FABI SINGH M.D., DIRECTOR OF LABORATORY SERVICES MARCI CALDERON M.D., PATHOLOGIST RUN DATE: 11/29/17 Specimen Inquiry Report PAGE 1 RUN TIME: 1103 PATIENT: LAURA WILLIAM ACCT: [id number] LOC: [facility] U : [id number] AGE/SX: 67/M ROOM: [facility] REG : 11/28/[address]: DORINA SIERRA MD : 1950 BED: 274 DIS : STATUS: ADM IN TLOC: SPEC #: [id number] DIANDRA: 11/28/17-UNK STATUS: RES REQ #: [id number] RECD: 11/28/17-[address]: DORINA SIERRA MD SOURCE: FINE NEEDL ENTR: 11/28/17-[address] [facility] [address]: LILLI ZAPATA APRN [facility] SPECIAL PROCEDURES TECHNOLOGIST-C SPDESC: ORDERED: CULT JESSICA A/A/LITA COMMENTS: 2.DEEP LEFT HIP FLUID Procedure Result Verified GRAM STAIN Final 11/28/17-185 NO ORGANISMS SEEN MANY RED BLOOD CELLS FEW WHITE BLOOD CELLS CULTURE BODY FLUID Preliminary 11/29/17-110 NO GROWTH AFTER 1 DAY, REINCUBATED ANAEROBE [facility]ULTURE [facility] [address] [place] [address] FABI SINGH M.D., DIRECTOR OF LABORATORY SERVICES MARCI CALDERON M.D., PATHOLOGIST RUN DATE: 11/29/17 Specimen Inquiry Report PAGE 1 RUN TIME: 1103 PATIENT: LAURA WILLIAM Thee ACCT: [id number] LOC: MED U : [id number] AGE/SX: 67/M ROOM: [facility] REG : 11/28/[address]: DORINA SIERRA MD : 1950 BED: 274 DIS : STATUS: ADM IN TLOC: SPEC #: [id number] DIANDRA: 11/28/17-UNK STATUS: RES REQ #: [id number] RECD: 11/28/17 [facility] DR: DORINA SIERRA MD SOURCE: FINE NEEDL ENTR: 11/28/[address] [facility] [address]: LILLI ZAPATA APRN MRI SPECIAL PROCEDURES TECHNOLOGIST-C [facility]: ORDERED: CULT JESSICA A/A/LITA COMMENTS: 3.LEFT HIP DEEP HEMATOMA Additional Information: SPECIMEN #3 ALSO FOR PATHOLOGY Procedure Result Verified GRAM STAIN Final 11/28/17-1849 NO ORGANISMS SEEN MANY RED BLOOD CELLS RARE WHITE BLOOD CELLS CULTURE BODY FLUID Preliminary 11/29/17 NO GROWTH AFTER 1 DAY, REINCUBATED ANAEROBE CULTURE PENDING [facility] *LIVE* [address] [place] [address] FABI SINGH M.D., DIRECTOR OF LABORATORY SERVICES MARCI CALDERON M.D., PATHOLOGIST RUN DATE: 11/29/17 Specimen Inquiry Report PAGE 1 RUN TIME: 1001 PATIENT: LAURA WILLIAM ACCT: [id number] LOC: MED U : [id number] AGE/SX: 67/M ROOM: 2274 REG : 11/28/[address]: DORINA SIERRA MD : 1950 BED: 274 DIS : STATUS: ADM IN TLOC: SPEC #: [id number] DIANDRA: 11/28/17 STATUS: RES REQ #: [id number] RECD: 11/28/17-[address]: NARCISA RIVAS MD SOURCE: BLOOD PER ENTR: 11/28/17-[address] [facility] [address]: LILLI ZAPATA APRN-C SPDESC: ORDERED: CULT BLOOD Procedure Result Verified BLOOD CULTURE Preliminary 11/29/17-1000 NO GROWTH AFTER 1 DAY, REINCUBATED [facility] [address] [place] [address] FABI SINGH M.D., DIRECTOR OF LABORATORY SERVICES MARCI CALDERON M.D., PATHOLOGIST RUN DATE: 11/29/17 Specimen Inquiry Report PAGE 1 RUN TIME: 1001 PATIENT: LAURA WILLIAM Thee ACCT: [id number] LOC: MED U : [id number] AGE/SX: 67/M ROOM: 2274 REG : 11/28/[address]: DORINA SIERRA MD : 1950 BED: 274 DIS : STATUS: ADM IN TLOC: SPEC #: [id number] DIANDRA: 11/28/17 STATUS: RES REQ #: [id number] RECD: 11/28/17 [facility] DR: NARCISA RIVAS MD SOURCE: BLOOD PER ENTR: 11/28/17-[address]: LILLI ZAPATA APRN MRI SPECIAL PROCEDURES TECHNOLOGIST-C SPDES: ORDERED: CULT BLOOD Procedure Result Verified BLOOD CULTURE Preliminary 11/29/17-1000 NO GROWTH AFTER 1 DAY, REINCUBATED Imaging PATIENT NAME: Laura William : 1950 MR: [id number] V: [id number] EXAM DATE: ORDERING PHYSICIAN: NARCISA RIVAS TECHNOLOGIST: Location: Patient: Laura William : 1950 Visit/Account:[id number] Date of Sevice: 11/28/2017 Examination: HIP LEFT W CONTRAST Comparison: Radiographs 11/14/2017 and earlier History: bleeding from surgical site. Surgery on 11/14/2017. Procedure: Multiplanar CT left hip with 75 mL intravenous Isovue 370. One of the following dose optimization techniques was utilized in the performance of this exam: Automated exposure control; adjustment of the mA and/ or kV according to the patient's size; or use of an iterative reconstruction technique. Specific details can be referenced in the facility's radiology CT exam operational policy. Findings: Left hip bipolar hemiarthroplasty. Arthroplasty alignment is within normal limits with no evidence of periprosthetic fracture or lucency. The visualized portions of the pelvis are intact; pubic symphysis and left sacroiliac joint alignment is maintained. Lumbosacral alignment is within normal limits although there is moderate degenerative disc disease at L5-S1. Sacrococcygeal alignment is preserved. 13.5 x 4.6 x 6.2 cm irregularly shaped rim-enhancing gas and fluid collection within the deep soft tissues lateral to the greater trochanter. The cephalad component of the collection is located within the musculature between the gluteus major and gluteus medius. There is a small amount of gas within the posterior joint space and along the posterior greater trochanter as well; this could potentially communicate with the dominant gas and fluid collection although evaluation in this region is limited by artifact from the arthroplasty. No other soft tissue gas or fluid collection is identified. No evidence of acute disease within the visualized pelvis. Mild diverticulosis along the visualized colon. IMPRESSION: 1. 13.5 x 4.6 x 6.2 cm irregularly-shaped rim-enhancing gas and fluid collection within the deep soft tissues lateral to the greater trochanter. The appearance is most concerning for an abscess with a benign postoperative collection considered less likely. 2. Small amount of gas within the posterior joint joint space. This could potentially communicate with the dominant gas collection and hardware infection cannot be excluded. 3. Normal postoperative alignment of the left bipolar hemiarthroplasty with no evidence of acute fracture. Results were discussed with NARCISA RIVAS at 11/28/2017 2:08 PM. Report Dictated By: Kishor Steel MD at 11/28/2017 1:33 PM Report E-Signed By: Kishor Steel MD at 11/28/2017 2:09 PM [id number] Condition: Improved Discharge: Home, Home Health PT/OT Follow Up For: PT For Surgical Rehab, OT For ADL's Home Health RN Follow Up For: Wound [facility] CASTING OPERATOR HELPER Follow Up For: ADL Assistance Follow-Up Labs: Other (CBC, CMP, sed rate, CRP in one week) Treatments: Wound Care (remove incisional vacuum in 3 days (Wednesday12/03/17) or sooner if battery fails) Time Spent: > 30 min Discharge Instructions Home Meds Active Scripts Oxycodone/Acetaminophen (OXYCODONE/ACETAMINOPHEN 5MG/325 MG) 5 Mg/325 Mg Tab, 1- 2 TAB PO Q6H Y for PAIN, #30 TAB 0 Refills Prov:SMILEY SIERRA MD 11/30/17 Cephalexin Monohydrate (CEPHALEXIN) 500 Mg Cap, 500 MG PO QID for 7 Days, #28 CAP 0 Refills Prov:SMILEY SIERRA MD 11/30/17 Aspirin (ASPIRIN EC) 325 Mg Tablet.dr, 325 MG PO QDAY for 30 Days, #30 TAB 0 Refills Prov:SMILEY SIERRA MD 11/30/17 Oxycodone HCl (Oxycodone HCl ER) 15 Mg Tab.er.12h, 1 TAB PO Q12H, #60 TAB 0 Refills Prov:SMILEY SIERRA MD 11/30/17 Gabapentin (GABAPENTIN) 600 Mg Tablet, 2 CAP PO TID, #180 CAP 5 Refills Prov:LILLI ZAPATA APRN-C 10/19/17 Tizanidine Hcl (TIZANIDINE HCL) 4 Mg Capsule, 4 MG PO TID Y for SPASMS, #90 CAPSULE 1 Refill Prov:LILLI ZAPATA APRN-C 10/05/17 Ranitidine Hcl (ZANTAC) 150 Mg Tablet, 150 MG PO DAILY for 90 Days, #90 TAB 3 Refills Prov:LILLI ZAPATA APRN-C 09/15/17 Duloxetine Hcl (CYMBALTA) 60 Mg Capsule.dr, 1 TAB PO DAILY, #90 TAB 1 Refill Prov:LILLI ZAPATA APRN-C 09/09/17 Sucralfate (CARAFATE) 1 Gm Tablet, 1 GM PO ACHS, #120 TAB 5 Refills Prov:LILLI ZAPATA APRN-C 08/25/17 Cyanocobalamin (Vitamin B-12) (B-12) 500 Mcg Tablet, 500 MCG PO QDAY, #90 TAB Prov:IZA MEHTA MD 10/29/16 Reported Medications Prazosin Hcl (PRAZOSIN HCL) 2 Mg Capsule, 2 MG PO HS, CAPSULE 11/16/17 Iron Polysaccharides Complex (POLYSACCHARIDE IRON 150) 150 Mg Capsule, 150 MG PO DAILY, CAPSULE 11/12/17 Follow up Referrals: Family Practice with Lilli Zapata Aprn Orthopedics @ [facility] with Roberta Villarreal Md Diet: Regular Activity: As Tolerated (as outlined by physical therapy/orthopedics), With Walker Special Instructions: Follow up with Dr. Villarreal in one week. Follow up with Lilli LUJAN in 1-2 weeks or sooner if any problems. Continue Home Health. Continue Home oxygen. Copies to: LILLI ZAPATA APRN; ROBERTA VILLARREAL MD Venous Thromboembolism Antithrombotics Is Pt On Any Antithrombotics?: Yes (ASA 325mg daily for postop hip fx repair.) Problem Qualifiers (1) Post op infection: Encounter type: initial encounter Qualified Codes: T81.4XXA - Infection following a procedure, initial encounter SMILEY SIERRA MD Nov 30, 2017 08:21
[2017-11-30 08:54] VITALS: BP 146/83
[2017-11-30] MEDS ORDERED: INFLUENZA VIRUS VAC 0.5 ML SYR IM ONLY ONE (09:00)
[2017-11-30] MEDS ORDERED: CEPHALEXIN MONO 500 MG CAP PO SCH (09:00)
[2017-11-30] MEDS: POLYSACCHARIDE IRON COM 150 MG PO SCH (09:00)
[2017-11-30] MEDS: GABAPENTIN 300 MG CAP PO SCH (09:01)
[2017-11-30] MEDS: DOCUSATE CALCIUM 240 MG CAP PO SCH (09:01)
[2017-11-30] MEDS: RANITIDINE HCL 150 MG TAB PO SCH (09:01)
[2017-11-30] MEDS: DULoxetine HCL 30 MG CAPCR PO SCH (09:01)
[2017-11-30] MEDS: CYANOCOBALAMIN 100 MCG TAB PO SCH (09:01)
[2017-11-30] MEDS: ASPIRIN 325 MG ENTERIC COATED PO SCH (09:02)
== END 2017-11-30 11:45 | disposition home health service (06) | DRG 909 ==
LOC: ER 12:27 → MED 14:59
PROVIDERS: ADMIT Internal Medicine; ATTEND Internal Medicine
PROC: 0JDM0ZZ Extraction of Left Upper Leg Subcutaneous Tissue and Fascia, Open Approach (ICD-10-PCS; principal; 2017-11-28 16:27)
DX: L76.32 Postprocedural hematoma of skin and subcutaneous tissue following other procedure (principal); G89.29 Other chronic pain; F41.8 Other specified anxiety disorders; N40.0 Benign prostatic hyperplasia without lower urinary tract symptoms; I10 Essential (primary) hypertension; F32.9 Major depressive disorder, single episode, unspecified; M48.061 Spinal stenosis, lumbar region without neurogenic claudication; B18.2 Chronic viral hepatitis C; G47.00 Insomnia, unspecified; Y83.8 Other surgical procedures as the cause of abnormal reaction of the patient, or of later complication, without mention of misadventure at the time of the procedure; Y79.3 Surgical instruments, materials and orthopedic devices (including sutures) associated with adverse incidents; Z96.642 Presence of left artificial hip joint; Z96.651 Presence of right artificial knee joint; Z86.73 Personal history of transient ischemic attack (TIA), and cerebral infarction without residual deficits
CPT/HCPCS: 36415; 36416; 82040; 82247; 82310; 82374; 82435; 82565; 82947; 82948; 84075; 84132; 84155; 84295; 84450; 84460; 84520; 85025; 85610; 85651; 86140; 86850; 86900; 86901; 87040; 87071; 87073; 87205; 96365; 96375; 97161; 97165; 99284; A7000; J0690; J1100; J2001; J2250; J2270; J2405; J2704; J2795; J3010; J3490; J7050; Q9967

== ENCOUNTER → 2017-11-28 | Outpatient (CLI) | payer MEDICARE, MEDICAID ==
[2017-11-12 15:17] VITALS: BMI 24.9
[~2017-11-28] MED LIST changes: +ASPI-764 PO; +CEPH500C24 PO; +PER PO
== END ==
LOC: AMB 12:07
PROVIDERS: ATTEND Nurse Practitioner
DX: L76.22 Postprocedural hemorrhage of skin and subcutaneous tissue following other procedure (principal); R42 Dizziness and giddiness; R26.81 Unsteadiness on feet
CPT/HCPCS: A0425; A0427

== ENCOUNTER 2017-12-09 06:11 | Emergency (ER) | payer MEDICARE, MEDICAID ==
[2017-11-12 15:17] VITALS: Wt 68.9 kg
[~2017-12-09 06:11] MED LIST changes: -OXYC-869 PO; -OXYGENHOME INH
--- NOTE | 2017-12-09 06:30 | ER Report ---
History and Physical Time Seen By MD: 06:27 Hx. of Stated Complaint: PT HAD FALL IN BATHROOM. HE SLIPPED OFF OF TOILET. PT COMPLAINS OF RIGHT HIP PAIN AND HEAD/NECK PAIN. HPI/ROS This 67-year-old male with known alcohol abuse who is 2 weeks status post a left hip fracture. States he was drinking alcohol earlier in the night went to sleep and awoke to use the restroom just prior to arrival when he missed the toilet fell hit the front of his head on the sink and in the back of his head on the toilet. No loss of consciousness but called the paramedics because he said it was difficult to stand up. According to the paramedics as well as the patient he is able to ambulate without pain however still complains of pain in his right hip. Also complains of pain in his neck. No focal weakness or neurologic changes. No other injuries or complaints Remainder of the 14 system rev: Yes Allergies: Coded Allergies: No Known Drug Allergies (Unverified , 12/09/17) Home Meds Active Scripts Oxycodone/Acetaminophen (OXYCODONE/ACETAMINOPHEN 5MG/325 MG) 5 Mg/325 Mg Tab, 1- 2 TAB PO Q6H Y for PAIN, #30 TAB 0 Refills Prov:SMILEY SIERRA MD 11/30/17 Cephalexin Monohydrate (CEPHALEXIN) 500 Mg Cap, 500 MG PO QID for 7 Days, #28 CAP 0 Refills Prov:SMILEY SIERRA MD 11/30/17 Aspirin (ASPIRIN EC) 325 Mg Tablet.dr, 325 MG PO QDAY for 30 Days, #30 TAB 0 Refills Prov:SMILEY SIERRA MD 11/30/17 Oxycodone HCl (Oxycodone HCl ER) 15 Mg Tab.er.12h, 1 TAB PO Q12H, #60 TAB 0 Refills Prov:SMILEY SIERRA MD 11/30/17 Gabapentin (GABAPENTIN) 600 Mg Tablet, 2 CAP PO TID, #180 CAP 5 Refills Prov:LILLI ZAPATA APRNP-C 10/19/17 Tizanidine Hcl (TIZANIDINE HCL) 4 Mg Capsule, 4 MG PO TID Y for SPASMS, #90 CAPSULE 1 Refill Prov:LILLI ZAPATA APRN-C 10/05/17 Ranitidine Hcl (ZANTAC) 150 Mg Tablet, 150 MG PO DAILY for 90 Days, #90 TAB 3 Refills Prov:LILLI ZAPATA FRANSISCA TOBACCO DRUMMER-C 09/15/17 Duloxetine Hcl (CYMBALTA) 60 Mg Capsule.dr, 1 TAB PO DAILY, #90 TAB 1 Refill Prov:LILLI ZAPATA FRANSISCA TOBACCO DRUMMER-C 09/09/17 Sucralfate (CARAFATE) 1 Gm Tablet, 1 GM PO ACHS, #120 TAB 5 Refills Prov:LILLI ZAPATA FRANSISCA TOBACCO DRUMMER-C 08/25/17 Cyanocobalamin (Vitamin B-12) (B-12) 500 Mcg Tablet, 500 MCG PO QDAY, #90 TAB Prov:IZA MEHTA MD 10/29/16 Reported Medications Prazosin Hcl (PRAZOSIN HCL) 2 Mg Capsule, 2 MG PO HS, CAPSULE 11/16/17 Iron Polysaccharides Complex (POLYSACCHARIDE IRON 150) 150 Mg Capsule, 150 MG PO DAILY, CAPSULE 11/12/17 Reviewed Nurses Notes: Yes Old Medical Records Reviewed: Yes Hx Smoking: No Smoking Status: Never Smoker Exposure to Second Hand Smoke?: Yes Hx Substance Use Disorder: No Hx Alcohol Use: Yes Constitutional Vital Sign - Last 24 Hours 12/09/17 12/09/17 06:16 06:33 Temp 97.7 Pulse 100 Resp 14 B/P (MAP) 120/73 Pulse Ox 95 O2 Delivery Room Air O2 Flow Rate 2.0 Physical Exam General Appearance: The patient is alert, has no immediate need for airway protection and no current signs of toxicity. Smells of alcohol Head: multiple abrasions to forehead Eyes: Pupils equal and round no injection. Respiratory: Chest is non tender, lungs are clear to auscultation. Cardiac: regular rate and rhythm Gastrointestinal: Abdomen is soft and non tender, no masses, bowel sounds normal. Musculoskeletal: Neck: Neck is supple, no stepoffs, TTP at C6/7 Extremities: TTP of the right hip Skin: Multiple abrasions DIFFERENTIAL DIAGNOSIS: After history and physical exam differential diagnosis was considered for ICH, hip fracture, c-spine fracture Medical Decision Making ED Course/Re-evaluation ED Course Uncomplicated fall. Able to ambulate both at the scene and in the ED. No LOC. CT head/c-spine WNL, and no pain on repeat c-spine exam. No fracture on hip xray , and patient able to walk without pain, so no further imaging needed. Encouraged to control his alcohol use to avoid falling. Decision to Disposition Date: Dec 09, 2017 Decision to Disposition Time: 08:10 Depart Departure Latest Vital Signs Vital Signs Date Time Temp Pulse Resp B/P (MAP) Pulse Ox O2 Delivery O2 Flow Rate FiO2 12/09/17 06:33 2.0 12/09/17 06:16 97.7 100 14 120/73 95 Room Air Impression: Primary Impression: Strain of neck muscle Additional Impression: Contusion, hip Condition: Improved Referrals: LILLI ZAPATA APRN TOBACCO DRUMMER-C (PCP) Patient Instructions: Neck Strain Exercises (GEN) Problem Qualifiers Primary Impression: Strain of neck muscle Encounter type: initial encounter Qualified Codes: S16.1XXA - Strain of muscle, fascia and tendon at neck level, initial encounter Additional Impression: Contusion, hip Encounter type: initial encounter Laterality: unspecified laterality Qualified Codes: S70.00XA - Contusion of unspecified hip, initial encounter THOMAS MEDINA MD Dec 09, 2017 06:30
--- NOTE | 2017-12-09 07:22 | RADIOLOGY IMAGING REPORT ---
FAC[place] [facility] [place] NAME: Saravanan William : 1950 MR: [id number] V: [id number] EXAM DATE: ORDERING PHYSICIAN: THOMAS MEDINA TECHNOLOGIST: Location: [facility] - [place] Patient: Saravanan William : 1950 Visit/Account:[id number] Date of Sevice: 12/09/2017 Pelvis and left hip: Indication: Injury. Technique: Two views were obtained. Comparison: 11/14/2017 Findings: The left hip prosthesis appears intact and unchanged. There are no signs of fracture, dislo cation, or other acute skeletal deformity. There is normal mineralization. 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 No focal soft tissue deformity is evid ent. IMPRESSION: No acute deformity or significant change. Report Dictated By: Matthias Dowell MD at 12/09/2017 7:15 AM Report E-Signed By: Matthias Dowell MD at 12/09/2017 7:17 AM WSN:[id number]
--- NOTE | 2017-12-09 07:30 | RADIOLOGY IMAGING REPORT ---
FACILITY: [facility] - [place], [place] PATIENT NAME: Saravanan William : 1950 MR: [id number] V: [id number] EXAM DATE: ORDERING PHYSICIAN: THOMAS MEDINA TECHNOLOGIST: [place] [facility] [place] Saravanan [place] : 1950 Visit/Account:[id number] Date of Sevice: 12/09/2017 CT of the cervical spine without contrast: Indication: Injury. Technique: Helical CT was performed from the base of the skull through the upper thoracic spine witho ut contrast. Axial, coronal, and sagittal reconstructions are reviewed. One of the following dose optimization techniques was utilized in the performance of this exam: Autom ated exposure control; adjustment of the mA and/or kV according to the patient's size; or use of an i terative reconstruction technique. Specific details can be referenced in the facility's radiology C T exam operational policy. Comparison: None. Findings: There is no evidence of fracture, compression, subluxation, or other acute deformity. There is diffuse degenerative disc space narrowing and extensive anterior osteophyte formation, compatible with D.I.S.H. There is uniform mineralization. The skeletal structures are otherwise unremarkable. N o paraspinal soft tissue abnormalities are identified. IMPRESSION: No evidence of fracture or acute deformity. Report Dictated By: Matthias Dowell MD at 12/09/2017 7:18 AM Report E-Signed By: Matthias Dowell MD at 12/09/2017 7:25 AM WSN:[id number]
--- NOTE | 2017-12-09 07:34 | RADIOLOGY IMAGING REPORT ---
FACILITY: [facility] PATIENT NAME: Saravanan William : 1950 MR: [id number] V: [id number] EXAM DATE: ORDERING PHYSICIAN: THOMAS MEDINA TECHNOLOGIST: Location: [facility] [place] Patient: Saravanan William : 1950 Visit/Account:[id number] Date of Sevice: 12/09/[address]: Indication: Injury. Technique: Contiguous axial sections were obtained from the base to the vertex without contrast enhan cement. One of the following dose optimization techniques was utilized in the performance of this exam: Autom ated exposure control; adjustment of the mA and/or kV according to the patient's size; or use of an i terative reconstruction technique. Specific details can be referenced in the facility's radiology CT exam operational policy. Comparison: 02/18/2017 Findings: There is no evidence of intra-axial or extra-axial hemorrhage. There is chronic atrophy, pe riventricular white matter disease, and compensatory dilatation of the ventricular system. No new foc al areas of decreased or increased attenuation are identified. There is no evidence of mass, edema, o r shift of the midline structures. The size, shape, and configuration of the ventricular system are s table. The skeletal structures are intact and unremarkable. There is no evidence of fracture or other acute deformity. There are tiny retention cysts in the right maxillary sinus. Impression: No acute deformity or significant change. Report Dictated By: Matthias Dowell MD at 12/09/2017 7:26 AM Report E-Signed By: Matthias Dowell MD at 12/09/2017 7:31 AM WSN:[id number]
[2017-12-09 08:30] VITALS: BP 120/70
[2017-12-10] MEDS ORDERED: GABA-503 PO (09:45)
== END 2017-12-09 08:55 | disposition home or self-care (01) ==
LOC: ER 06:23
DX: S16.1XXA Strain of muscle, fascia and tendon at neck level, initial encounter (principal); S70.00XA Contusion of unspecified hip, initial encounter; W18.30XA Fall on same level, unspecified, initial encounter
CPT/HCPCS: 70450; 72125; 99283

== ENCOUNTER → 2017-12-09 | Outpatient (CLI) | payer MEDICARE, MEDICAID ==
[2017-11-12 15:17] VITALS: BMI 24.9
[~2017-12-09] MED LIST changes: +ASPI-764 PO; +CEPH500C24 PO; +OXYC-869 PO; +OXYGENHOME INH; +PER PO
== END ==
LOC: AMB 05:51
PROVIDERS: ATTEND Nurse Practitioner
DX: M25.561 Pain in right knee (principal); M25.551 Pain in right hip; W18.11XA Fall from or off toilet without subsequent striking against object, initial encounter
CPT/HCPCS: A0425; A0429

== ENCOUNTER → 2017-12-14 | Outpatient (CLI) | payer MEDICARE, MEDICAID ==
[2017-11-12 15:17] VITALS: BMI 24.9
[~2017-12-14] MED LIST changes: +OXYGENHOME INH
--- NOTE | 2017-12-14 12:46 | RADIOLOGY IMAGING REPORT ---
[place]AC[place] [facility] [place]IENT NAME: Saravanan William : 1950 MR: [id number] V: [id number] EXAM DATE: ORDERING PHYSICIAN: LILLI AZPATA TECHNOLOGIST: Location: [facility] [place] Patient: Saravanan William : 1950 Visit/Account:[id number] Date of Sevice: 12/14/2017 Technique: KNEE 3 VIEW RIGHT HISTORY: right knee pain / fall Comparison studies: Right knee radiographs September 08, 2017 FINDINGS: Present is a right knee arthroplasty. There is gross anatomic alignment. No adjacent frac ture. No periprosthetic lucency to suggest loosening or infection. Overall, there is decreased edenilson ical mineralization consistent with osteopenia. IMPRESSION: 1. Right knee arthroplasty without evidence of hardware complication. Report Dictated By: Lon Winchester DO at 12/14/2017 12:42 PM Report E-Signed By: Lon Winchester DO at 12/14/2017 12:43 PM WSN:[id number]
--- NOTE | 2017-12-14 12:47 | RADIOLOGY IMAGING REPORT ---
FACILITY: [facility] PATIENT NAME: Saravanan William : 1950 MR: [id number] V: [id number] EXAM DATE: ORDERING PHYSICIAN: LILLI ZAPATA TECHNOLOGIST: Location: [facility] Patient: Saravanan William : 1950 Visit/Account:[id number] Date of Sevice: 12/14/2017 DEXA Scan Clinical history: Osteopenia. Comparison: None available. LUMBAR SPINE: The bone mineral density (BMD) measured from L1-L4 correlates with a Z-score 1.1 and a T-score of 0.4 which is Normal as defined by the World Health Organization. The corresponding risk of fracture in the lumbar spine is Not increased compared with a young adult reference population. HIP: Bone mineral density (BMD) measured in the Left total hip region correlates with a Z-score -1.6 and a T-score of -2.4 which is osteopenia as defined by the World Health Organization. The corresponding risk of fracture in the hip is 5X compared with a young adult reference population. Bone mineral density (BMD) measured in the Femoral Neck region measures 0.749 g/cm2. Impression: 1. Lumbar spine: Normal. 2. Left Hip: Osteopenia. 3. Femoral Neck: Bone Mineral Density is 0.749 g/cm2 The next DEXA scan of this patient should include the following sites: L1-L4 and the left hip. FRAX? WHO Fracture Risk Assessment Tool link: <http://www.shef.ac.uk/FRAX/tool.jsp?locationValue=9> PLEASE NOTE: 1) The World Health Organization defines low BMD as follows: T-score Normal > -1 Osteopenia < -1 and > -2.5 Osteoporosis < -2.5 without fractures Established osteoporosis < -2.5 with fractures 2) In general, you may wish to consider: Diagnosis Treatment Follow-up DEXA Normal BMD Prevention 2-3 years Osteopenia Prevention/therapy 1-2 years Osteoporosis Therapy Yearly 3) Fracture risk estimated from the T-score is more accurate for vertebral fractures (often spontane ous) than for hip fractures. Report Dictated By: Lon Winchester DO at 12/14/2017 12:43 PM Report E-Signed By: Lon Winchester DO at 12/14/2017 12:44 PM WSN:[id number]
== END ==
LOC: LAB 10:36
PROVIDERS: ATTEND Nurse Practitioner Family
DX: M85.88 Other specified disorders of bone density and structure, other site (principal); Z96.651 Presence of right artificial knee joint
CPT/HCPCS: 77080

== ENCOUNTER → 2018-01-12 | Outpatient (CLI) | payer MEDICARE, MEDICAID ==
[2017-11-12 15:17] VITALS: BMI 24.9
[~2018-01-12] MED LIST changes: +ALBU8.5H IH; +OXYC-869 PO; -RANI-324 PO; +RANI-366 PO
== END ==
LOC: RESP 12-22 02:41
PROVIDERS: ATTEND Nurse Practitioner Family
DX: R09.02 Hypoxemia (principal)
CPT/HCPCS: 94060; 94726; 94729

== ENCOUNTER → 2018-01-20 | Outpatient (CLI) | payer MEDICARE, MEDICAID ==
[2017-11-12 15:17] VITALS: BMI 24.9
[2018-01-20 12:12] LABS: PLATELET COUNT, AUTOMATED 258 K/uL (150-450)
== END ==
LOC: LAB 11:37
PROVIDERS: ATTEND Nurse Practitioner Family
DX: R06.02 Shortness of breath (principal); R42 Dizziness and giddiness; R06.01 Orthopnea
CPT/HCPCS: 36415; 82040; 82247; 82310; 82374; 82435; 82565; 82947; 83880; 84075; 84132; 84155; 84295; 84450; 84460; 84520; 85025

== ENCOUNTER 2018-01-21 18:54 | Emergency (ER) | payer MEDICARE, MEDICAID ==
[2017-11-12 15:17] VITALS: Wt 72.6 kg
--- NOTE | 2018-01-21 19:06 | ER Report ---
History and Physical Time Seen By : 19:04 HPI/ROS CHIEF COMPLAINT: Chest pain HISTORY OF PRESENT ILLNESS: 67-year-old male who states today at about 2:00pm he was in a parking lot when he nearly passed out and hit his chest on his car. He also reports severe pain afterwards when he sneezed that caused him to pass out. He reports passing out off and on due to not having his oxygen refilled. He also complains of left wrist pain from the fall today. 6 weeks ago he had a hip replacement. He denies any symptoms prior to his syncopal episodes. REVIEW OF SYSTEMS: Constitutional: No fever, no chills. Eyes: No discharge. ENT: No sore throat. Cardiovascular: As above Respiratory: No cough, no shortness of breath. Gastrointestinal: No abdominal pain, no vomiting. Genitourinary: No hematuria. Musculoskeletal: No back pain. Skin: No rashes. Neurological: No headache. Allergies: Coded Allergies: No Known Drug Allergies (Unverified , 12/09/17) Home Meds Active Scripts Cyclobenzaprine Hcl (CYCLOBENZAPRINE HCL) 10 Mg Tablet, 10 MG PO Q8H Y for MUSCLE SPASMS, #20 TAB 0 Refills Prov:VIJAY DIAZ MD 01/21/18 Oxygen (OXYGEN) Inha, 2 L INH DIRECTED, #2 L Prov:LILLI ZAPATA APRN-Thee 01/21/18 Albuterol Sulfate 90 Mcg/Act (PROAIR HFA 90 MCG/ACT) 8.5 Gm Hfa.aer.ad, 2 PUFF IH QID Y for WHEEZING, #1 INHALER 0 Refills Prov:LILLI ZAPATA APRN-C 01/14/18 Oxycodone Hcl/Acetaminophen (PERCOCET 7.5-325 MG TABLET) 1 Each Tablet, 2 TAB PO Q6H Y for PAIN, #120 TAB 0 Refills Prov:LILLI ZAPATA APRNC 01/14/18 Tizanidine Hcl (TIZANIDINE HCL) 4 Mg Capsule, 4 MG PO TID Y for SPASMS, #90 CAPSULE 0 Refills Prov:LILLI ZAPATA APRN-C 01/12/18 Prazosin Hcl (PRAZOSIN HCL) 2 Mg Capsule, 1 CAP PO HS, #30 CAPSULE 5 Refills Prov:LILLI ZAPATA APRNP-C 01/04/18 Amlodipine Besylate (AMLODIPINE BESYLATE) 5 Mg Tablet, 1 TAB PO DAILY Y for Elevated Blood pressure, #30 TAB 2 Refills As needed for blood pressure greater than 140/90 Prov:LILLI ZAPATA APRN-C 01/04/18 Gabapentin (GABAPENTIN) 600 Mg Tablet, 2 CAP PO TID, #180 CAP 1 Refill Prov:LILLI ZAPATA APRNP-C 12/10/17 Aspirin (ASPIRIN EC) 325 Mg Tablet.dr, 325 MG PO QDAY for 30 Days, #30 TAB 0 Refills Prov:SMILEY SIERRA MD 11/30/17 Ranitidine Hcl (ZANTAC) 150 Mg Tablet, 150 MG PO DAILY for 90 Days, #90 TAB 3 Refills Prov:LILLI ZAPATA APRN-C 09/15/17 Duloxetine Hcl (CYMBALTA) 60 Mg Capsule.dr, 1 TAB PO DAILY, #90 TAB 1 Refill Prov:LILLI ZAPATA APRN-C 09/09/17 Sucralfate (CARAFATE) 1 Gm Tablet, 1 GM PO ACHS, #120 TAB 5 Refills Prov:LILLI ZAPATA APRN-C 08/25/17 Cyanocobalamin (Vitamin B-12) (B-12) 500 Mcg Tablet, 500 MCG PO QDAY, #90 TAB Prov:IZA MEHTA MD 10/29/16 Reported Medications Iron Polysaccharides Complex (POLYSACCHARIDE IRON 150) 150 Mg Capsule, 150 MG PO DAILY, CAPSULE 11/12/17 Past Medical/Surgical History See nurse's note Hx Smoking: No Smoking Status: Never Smoker Exposure to Second Hand Smoke?: Yes Hx Substance Use Disorder: No Hx Alcohol Use: Yes Constitutional Vital Sign - Last 24 Hours 01/21/18 01/21/18 01/21/18 01/21/18 18:59 19:00 19:01 19:01 Temp 98.1 Pulse ??? 92 88 92 Resp 20 B/P (MAP) 171/87 (115) 171/87 Pulse Ox 91 95 95 O2 Delivery Room Air 5/4/18 5/4/18 5/4/18 5/4/18 19:02 19:03 19:04 19:05 Pulse 90 88 87 87 Pulse Ox 94 96 91 94 5/4/18 5/4/18 5/4/18 5/4/18 19:06 19:07 19:08 19:09 Pulse 86 87 87 84 B/P (MAP) 136/77 (96) Pulse Ox 92 94 89 96 5/4/18 5/4/18 5/4/18 5/4/18 19:10 19:11 19:12 19:13 Pulse 89 83 88 86 Pulse Ox 91 90 93 86 5/4/18 5/4/18 5/4/18 5/4/18 19:14 19:15 19:16 19:17 Pulse 86 88 85 85 Pulse Ox 95 90 93 91 5/4/18 5/4/18 5/4/18 5//18 19:18 19:19 19:20 19:21 Pulse 83 84 86 86 Pulse Ox 93 91 93 95 5/4/18 5/4/18 5/4/18 5/4/18 19:22 19:23 19:24 19:25 Pulse 87 84 87 84 Pulse Ox 93 93 90 92 5/4/18 5/4/18 5/4/18 5/4/18 19:26 19:27 19:28 19:29 Pulse 86 81 83 86 Pulse Ox 95 93 94 90 5/4/18 5/4/18 5/4/18 5/4/18 19:30 19:31 19:32 19:33 Pulse 83 83 85 85 Pulse Ox 93 94 93 94 5/4/18 5/4/18 5/4/18 5/4/18 19:34 19:35 19:36 19:37 Pulse 83 83 82 78 Pulse Ox 92 90 91 92 5/4/18 5/4/18 5/4/18 5/4/18 19:38 19:39 19:40 19:45 Pulse 85 81 81 83 Pulse Ox 92 95 95 92 5/4/18 5/4/18 5/4/18 5/4/18 20:00 20:05 20:30 20:35 Pulse 78 77 79 Resp 12 B/P (MAP) 141/92 (108) 140/96 (111) Pulse Ox 95 95 91 5/4/18 5/4/18 5/4/18 5/4/18 20:50 21:00 21:05 21:18 Pulse 75 81 85 Resp 16 20 16 B/P (MAP) 130/81 (97) 138/85 (102) Pulse Ox 90 92 92 O2 Delivery Room Air Physical Exam General Appearance: The patient is alert, has no immediate need for airway protection and no signs of toxicity. Eyes: Pupils equal and round no pallor or injection. ENT, Mouth: Mucous membranes are moist. Respiratory: There are no retractions, lungs are clear to auscultation. Cardiovascular: Regular rate and rhythm. Gastrointestinal: Abdomen is soft and non tender, no masses, bowel sounds normal. Neurological: Alert and oriented 3, no motor or sensory deficits. Skin: Warm and dry, no rashes. Musculoskeletal: Neck is supple non tender. Tenderness is noted to the left anterior chest. No flail segment. No ecchymosis. No crepitus. Left wrist tenderness and pain. Small abrasion on left elbow. Full range of motion of left elbow. Abrasion to right knee. Extremities otherwise normal. DIFFERENTIAL DIAGNOSIS: After history and physical exam differential diagnosis was considered for syncope including but not limited to vasovagal syncope, arrhythmia, dehydration, and for chest pain including but not limited to myocardial ischemia, pericarditis pulmonary embolus, chest wall pain, pleural inflammation and pulmonary infectious causes. Medical Decision Making Data Points Result Diagram: 01/21/181937 Laboratory Hematology Test 01/21/18 19:38 D-Dimer Quantitative (PE/DVT) 1.98 ug/ml (0-0.50) Sodium Level 139 mmol/L (137-145) Potassium Level 3.5 mmol/L (3.5-5.0) Chloride Level 98 mmol/L (98-107) Carbon Dioxide Level 26 mmol/L (22-30) Blood Urea Nitrogen 10 mg/dl (9-21) Creatinine 0.90 mg/dl (0.66-1.25) Glomerular Filtration Rate Calc > 60.0 Random Glucose 133 mg/dl (75-110) Calcium Level 9.3 mg/dl (8.4-10.2) Total Bilirubin 0.5 mg/dl (0.2-1.3) Aspartate Amino Transf (AST/SGOT) 26 U/L (0-35) Alanine Aminotransferase (ALT/SGPT) 19 U/L (0-56) Alkaline Phosphatase 86 U/L (0-126) Troponin I < 0.012 ng/ml Total Protein 7.1 gm/dl (6.3-8.2) Albumin 4.2 g/dl (3.5-5.0) Chemistry Test 01/21/18 19:38 D-Dimer Quantitative (PE/DVT) 1.98 ug/ml (0-0.50) Glomerular Filtration Rate Calc > 60.0 Calcium Level 9.3 mg/dl (8.4-10.2) Total Bilirubin 0.5 mg/dl (0.2-1.3) Aspartate Amino Transf (AST/SGOT) 26 U/L (0-35) Alanine Aminotransferase (ALT/SGPT) 19 U/L (0-56) Alkaline Phosphatase 86 U/L (0-126) Troponin I < 0.012 ng/ml Total Protein 7.1 gm/dl (6.3-8.2) Albumin 4.2 g/dl (3.5-5.0) Coagulation Test 01/21/18 19:38 D-Dimer Quantitative (PE/DVT) 1.98 ug/ml EKG/Imaging EKG Interpretation 01/21/2018 7:40:39 pm 12 lead EKG: Rhythm: normal sinus rhythm, rate 81 [place]: normal QRS: normal ST segments: normal 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 However he did have hip replacement surgery 6 weeks ago increasing his risk for PE. Patient had a CBC drawn earlier in the day which was normal, labs drawn during ER visit were remarkable for an elevated d-dimer. CTA shows no PE however it does show mildly displaced left 3rd and 4th rib fractures, no pneumothorax. X-ray of the left wrist was negative for acute injury. Patient states he has a wrist splint at home. Patient states his pain improved after Norflex. He has pain medication at home and was prescribed Flexeril. The cause of his syncope today appears to be due to intermittent hypoxia. No signs of arrhythmia on EKG, labs do not show electrolyte abnormalities or anemia, neuro exam is normal and patient denies headache. He has an oxygen condenser at home and is in touch with [facility] [place] to obtain a condenser for use out of the home.. He is also instructed to follow up with his doctor for further syncope workup. Decision to Disposition Date: January 21, 2018 Decision to Disposition Time: 21:08 Depart Departure Latest Vital Signs Vital Signs Date Time Temp Pulse Resp B/P (MAP) Pulse Ox O2 Delivery O2 Flow Rate FiO2 01/21/18 21:18 85 16 138/85 (102) 92 Room Air 01/21/18 19:01 98.1 Impression: Primary Impression: Rib fractures Additional Impressions: Left wrist sprain Syncope Condition: Improved Disposition: HOME OR SELF-CARE Referrals: LILLI ZAPATA APRN HOME STAGING SPECIALIST-C (PCP) New Scripts Cyclobenzaprine Hcl (CYCLOBENZAPRINE HCL) 10 Mg Tablet 10 MG PO Q8H Y for MUSCLE SPASMS, #20 TAB 0 Refills Prov: VIJAY DIAZ MD 01/21/18 Patient Instructions: Rib Fracture (ED), Syncope (ED), Wrist Sprain (ED) Additional Instructions: Take Flexeril and your OxyContin as needed for pain. Return to the emergency department if you develop difficulty breathing. Follow-up with your doctor for further evaluation. Problem Qualifiers Primary Impression: Rib fractures Encounter type: initial encounter Rib fracture type: multiple ribs Fracture type: closed Laterality: left Qualified Codes: S22.42XA - Multiple fractures of ribs, left side, initial encounter for closed fracture Additional Impressions: Left wrist sprain Encounter type: initial encounter Qualified Codes: S63.502A - Unspecified sprain of left wrist, initial encounter Syncope Syncope type: unspecified Qualified Codes: R55 - Syncope and collapse VIJAY DIAZ MD January 21, 2018 19:06
[2018-01-21] MEDS ORDERED: ORPHENADRINE 60MG/2ML INJ IVP ONE (19:30)
[2018-01-21] MEDS ORDERED: IOPAMIDOL 76% 75 ML INFUS BTL 75 ML ONE (20:14)
--- NOTE | 2018-01-21 20:21 | RADIOLOGY IMAGING REPORT ---
FACILITY: [facility] - [place] PATIENT NAME: Saravanan William : 1950 MR: [id number] V: [id number] EXAM DATE: ORDERING PHYSICIAN: VIJAY DIAZ TECHNOLOGIST: Location: [facility] - [place] Patient: Saravanan William : 1950 Visit/Account:[id number] Date of Sevice: 01/21/2018 Examination: WRIST LEFT MIN 3 VIEW Comparison: None. History: Fall. Posterior wrist pain. 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 No acute fracture. Modera tely advanced degenerative change at the distal radioulnar joint with mild degenerative change diffus garcía throughout the carpal bones. No soft tissue abnormality. IMPRESSION: No left wrist acute fracture or malalignment. Report Dictated By: Kishor Steel MD at 01/21/2018 8:14 PM Report E-Signed By: Kishor Steel MD at 01/21/2018 8:17 PM WSN:[id number]
--- NOTE | 2018-01-21 20:48 | RADIOLOGY IMAGING REPORT ---
FACILITY: [facility] - [place] PATIENT NAME: Saravanan William : 1950 MR: [id number] V: [id number] EXAM DATE: ORDERING PHYSICIAN: VIJAY DIAZ TECHNOLOGIST: Location: [facility] - [place] Patient: Saravanan William : 1950 Visit/Account:[id number] Date of Sevice: 01/21/2018 CTA CHEST WW/O CNTR (PULM ANG) HISTORY: chest pain TECHNIQUE: CTA chest with intravenous contrast attention to pulmonary arteries. Sagittal, coronal a nd slab 3D MIP coronal reconstructed images were also created for further evaluation and interpretati on. One of the following dose optimization techniques was utilized in the performance of this exam: Autom ated exposure control; adjustment of the mA and/or kV according to the patient's size; or use of an i terative reconstruction technique. Specific details can be referenced in the facility's radiology CT exam operational policy. CONTRAST: 75 mL Isovue-370. COMPARISON: None. FINDINGS: Heart/vessels: Satisfactory opacification of the pulmonary arteries without visualized pulmonary emb olus. Prominence of the main pulmonary artery measuring up to 4.2 cm which is nonspecific however can be seen in the setting of pulmonary arterial hypertension. Mild calcifications within the coronary a rteries. Otherwise negative. Mediastinum: Negative. Lymph nodes: Negative. Lungs/pleura: Mild chronic elevation of the right hemidiaphragm. Bibasilar atelectasis. Few calcifie d granulomas. Visualized upper abdomen: 2 calcified granulomas within the liver. Otherwise negative. Bones/soft tissues: Age indeterminant anterior left third and fourth rib fractures (image 113 and 14 4 of series 4). IMPRESSION: 1. No acute findings. No visualized pulmonary was no visualized pulmonary embolus. 2. Age-indeterminate anterior left third and fourth rib fractures. Recommend correlation for point te nderness. Report Dictated By: Bryce Burgos MD at 01/21/2018 8:37 PM Report E-Signed By: Bryce Burgos MD at 01/21/2018 8:43 PM WSN:[id number]
[2018-01-21] MEDS ORDERED: CYCL10TA29 PO (21:11)
[2018-01-21 21:18] VITALS: BP 138/85
--- NOTE | 2018-01-22 01:06 | EKG ---
FACILITY: [facility] PATIENT NAME: LAURA BROWN : [id number] MR: [id number] V: [id number] EXAM DATE: ORDERING PHYSICIAN: VIJAY DIAZ TECHNOLOGIST: NIURKA Test Reason : TRAUMA Blood Pressure : / mmHG Vent. Rate : 081 BPM Atrial Rate : 081 BPM P-R Int : 154 ms QRS Dur : 096 ms QT Int : 398 ms P-R-T Axes : 066 072 074 degrees QTc Int : 462 ms Normal sinus rhythm Normal ECG When compared with ECG of 12-NOV-2017 10:53, No significant change was found Confirmed by DORINA AGUSTIN ([id number]) on 01/22/2018 6:25:53 AM Referred By: Confirmed By:DORINA AGUSTIN
== END 2018-01-21 21:21 | disposition home or self-care (01) ==
LOC: ER 19:23
DX: S22.42XA Multiple fractures of ribs, left side, initial encounter for closed fracture (principal); S63.502A Unspecified sprain of left wrist, initial encounter; R55 Syncope and collapse; W22.8XXA Striking against or struck by other objects, initial encounter
CPT/HCPCS: 71275; 73110; 84484; 85379; 93005; 96374; 99284; J2360; Q9967; 82040; 82247; 82310; 82374; 82435; 82565; 82947; 84075; 84132; 84155; 84295; 84450; 84460; 84520

== ENCOUNTER 2018-02-22 18:50 | Emergency (ER) | payer MEDICARE, MEDICAID ==
[2017-11-12 15:17] VITALS: Wt 63.5 kg
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
[2018-02-22 19:30] VITALS: BP 165/123
[2018-02-22] MEDS ORDERED: ONDANSETRON 4 MG/2 ML VIAL IVP ONE (19:50)
[2018-02-22] MEDS ORDERED: MORPHINE 4 MG/ML SDV IVP ONE (19:50)
--- NOTE | 2018-02-22 20:27 | RADIOLOGY IMAGING REPORT ---
FACILITY: [facility] - [place] PATIENT NAME: Saravanan William : 1950 MR: [id number] V: [id number] EXAM DATE: ORDERING PHYSICIAN: TAMMY ALFONSO TECHNOLOGIST: Location: [facility] Patient: Saravanan William : 1950 Visit/Account:[id number] Date of Sevice: 02/22/2018 CT Head without contrast Indication: Fall, head injury. Comparison: 12/09/2017. Technique: Axial CT images were obtained through the brain from the skull base to the vertex without administration of IV contrast. One of the following dose optimization techniques was utilized in th e performance of this exam: Automated exposure control; adjustment of the mA and/or kV according to t he patient's size; or use of an iterative reconstruction technique. Specific details can be referen maxwell in the facility's radiology CT exam operational policy. Findings: No evidence of mass, mass effect, or midline shift. No acute intracranial hemorrhage or acute territorial infarction. Small areas of encephalomalacia in the the bilateral superior-medial MCA distributions consistent wit h remote infarcts, unchanged. Moderate amount of additional white matter hypoattenuation likely rela roel to chronic small vessel ischemic disease. Skull is nonacute. Globes and orbits are normal. Small retention cyst and mild mucosal thickening in the right maxillary sinus. The visualized parana juliana sinuses and mastoid air spaces are otherwise clear. IMPRESSION: 1. No acute intracranial abnormality. 2. Probable chronic white matter disease and remote bilateral MCA distribution infarcts similar to p rior. Report Dictated By: Neno Clark MD at 02/22/2018 8:17 PM Report E-Signed By: Neno Clark MD at 02/22/2018 8:23 PM WSN:[id number]
--- NOTE | 2018-02-22 20:37 | RADIOLOGY IMAGING REPORT ---
FACILITY: [facility] PATIENT NAME: Saravanan William : 1950 MR: [id number] V: [id number] EXAM DATE: ORDERING PHYSICIAN: TAMMY ALFONSO TECHNOLOGIST: Location: [facility] - [place] Patient: Saravanan William : 1950 Visit/Account:[id number] Date of Sevice: 02/22/2018 CT cervical spine without contrast INDICATION: Fall, neck pain. COMPARISON: . 12/09/2017 PROCEDURE: Multiplanar noncontrast CT of the cervical spine. One of the following dose optimization techniques was utilized in the performance of this exam: Automated exposure control; adjustment of th e mA and/or kV according to the patient's size; or use of an iterative reconstruction technique. Sp ecific details can be referenced in the facility's radiology CT exam operational policy. FINDINGS: No acute abnormality of cervical vertebral body height and alignment. No cervical spine fracture. T here is no prevertebral soft tissue thickening. Moderate multilevel degenerative disease with associated neural foraminal and spinal canal narrowing. Large anterior flowing osteophytes throughout consistent with DISH as previously described. Prominent calcification of stylohyoid ligaments as can be seen in [place] syndrome. Remaining visualiz ed cervical soft tissues are unremarkable. The airway is patent. The lung apices are clear. IMPRESSION: 1. Negative cervical spine CT. 2. Unchanged multilevel degenerative disease. 3. Prominent calcification of stylohyoid ligaments as can be seen in [place] syndrome. Report Dictated By: Neno Clark MD at 02/22/2018 8:28 PM Report E-Signed By: Neno Clark MD at 02/22/2018 8:35 PM WSN:[id number]
[2018-02-22] MEDS ORDERED: LIDOCAINE 2% VISC SLN 15ML UDC PO ONE (20:55)
--- NOTE | 2018-02-22 21:06 | RADIOLOGY IMAGING REPORT ---
[place]: [facility] [place]IENT NAME: Saravanan William : 1950 MR: [id number] V: [id number] EXAM DATE: ORDERING PHYSICIAN: TAMMY ALFONSO TECHNOLOGIST: Location: [facility] Patient: Saravanan William : 1950 Visit/Account:[id number] Date of Sevice: 02/22/2018 INDICATION: fall, pain, s/p hip surg EXAM DATE: 02/22/2018 7:20 PM COMPARISON: None. FINDINGS: Single view of the pelvis with 2 views of the left hip. Mineralization is normal. No acute alignment abnormality or fracture. Left hip prosthesis in place with no evidence of failure or loosening. Sof t tissues are unremarkable. IMPRESSION: Left hip prosthesis in place with no apparent acute osseous abnormality of the pelvis or left hip. Report Dictated By: Neno Clark MD at 02/22/2018 9:02 PM Report E-Signed By: Neno Clark MD at 02/22/2018 9:03 PM WSN:[id number]
--- NOTE | 2018-02-22 21:06 | RADIOLOGY IMAGING REPORT ---
FACILITY: [facility] [place] PATIENT NAME: Saravanan William : 1950 MR: [id number] V: [id number] EXAM DATE: ORDERING PHYSICIAN: TAMMY ALFONSO TECHNOLOGIST: Location: [facility] [place] Patient: Saravanan William : 1950 Visit/Account:[id number] Date of Sevice: 02/22/2018 INDICATION: Fall, left elbow injury. EXAM DATE: 02/22/2018 7:20 PM COMPARISON: None. FINDINGS: 3 views right elbow. Mineralization is normal. No acute alignment abnormality or fracture. Moderate osteoarthrosis. There is a fixation screw through the distal ulna with no apparent failure or loosen ing. Heterotopic ossification in the posterior soft tissues at the distal upper arm. No radiopaque foreign body. IMPRESSION: No acute osseous abnormality or radiopaque foreign body in the left elbow. Report Dictated By: Neno Clark MD at 02/22/2018 8:59 PM Report E-Signed By: Neno Clark MD at 02/22/2018 9:01 PM WSN:[id number]
--- NOTE | 2018-02-22 21:08 | RADIOLOGY IMAGING REPORT ---
FACILITY: [facility] PATIENT NAME: Saravanan William : 1950 MR: [id number] V: [id number] EXAM DATE: ORDERING PHYSICIAN: TAMMY ALFONSO TECHNOLOGIST: Location: [facility] [place] Patient: Saravanan William : 1950 Visit/Account:[id number] Date of Sevice: 02/22/2018 INDICATION: fall, pain, s/p hip surg EXAM DATE: 02/22/2018 7:20 PM COMPARISON: 06/19/2017. FINDINGS: 3 views lumbar spine. Mineralization is normal. No acute alignment abnormality or fracture. Moderate to severe multilevel spondylosis with associated neural foraminal and spinal canal narrowing. Soft tissues are unremarkable. IMPRESSION: Moderate to severe multilevel spondylosis with no acute osseous abnormality of the lumba r spine. Report Dictated By: Neno Clark MD at 02/22/2018 9:03 PM Report E-Signed By: Neno Clark MD at 02/22/2018 9:05 PM WSN:[id number]
--- NOTE | 2018-02-22 21:09 | RADIOLOGY IMAGING REPORT ---
FACILITY: [facility] - [place] PATIENT NAME: Saravanan William : 1950 MR: [id number] V: [id number] EXAM DATE: ORDERING PHYSICIAN: TAMMY ALFONSO TECHNOLOGIST: Location: [facility] [place] Patient: Saravanan William : 1950 Visit/Account:[id number] Date of Sevice: 02/22/2018 INDICATION: fall, pain, s/p hip surg EXAM DATE: 02/22/2018 7:20 PM COMPARISON: None. FINDINGS: 3 views left knee. Mineralization is normal. No acute alignment abnormality or fracture. Mild osteoa rthrosis. Remote proximal fibular diaphysis fracture. Soft tissues are unremarkable. IMPRESSION: No acute osseous abnormality of the left knee. Report Dictated By: Neno Clark MD at 02/22/2018 9:06 PM Report E-Signed By: Neno Clark MD at 02/22/2018 9:07 PM WSN:[id number]
--- NOTE | 2018-02-22 21:11 | RADIOLOGY IMAGING REPORT ---
FACILITY: [facility] [place] PATIENT NAME: Saravanan William : 1950 MR: [id number] V: [id number] EXAM DATE: ORDERING PHYSICIAN: TAMMY ALFONSO TECHNOLOGIST: Location: [facility] [place] Patient: Saravanan William : 1950 Visit/Account:[id number] Date of Sevice: 02/22/2018 INDICATION: fall, pain, s/p hip surg EXAM DATE: 02/22/2018 7:20 PM COMPARISON: 12/14/2017. FINDINGS: 3 views right knee. Mineralization is normal. No acute alignment abnormality or fracture. Total arth roplasty prostheses in place, no evidence of failure or loosening. Soft tissues are unremarkable. IMPRESSION: Previous right total knee arthroplasty with no acute osseous abnormality. Report Dictated By: Neno Clark MD at 02/22/2018 9:07 PM Report E-Signed By: Neno Clark MD at 02/22/2018 9:09 PM WSN:[id number]
[2018-02-22] MEDS ORDERED: LIDOCAINE 2% JELLY 5 ML TUBE TP ONE (21:25)
[2018-02-22] MEDS ORDERED: LIDOCAINE 2% VISC SLN 15ML UDC TP ONE (21:30)
[2018-02-24] MEDS ORDERED: TIZA4CAP3 PO (16:02)
== END 2018-02-22 22:06 | disposition home or self-care (01) ==
LOC: ER 19:04
DX: S50.02XA Contusion of left elbow, initial encounter (principal); S70.02XA Contusion of left hip, initial encounter; S80.02XA Contusion of left knee, initial encounter; S80.01XA Contusion of right knee, initial encounter; W18.30XA Fall on same level, unspecified, initial encounter; M47.9 Spondylosis, unspecified; S09.90XA Unspecified injury of head, initial encounter
CPT/HCPCS: 70450; 72100; 72125; 73080; 73502; 73564; 96374; 96375; 99284; A9270; J2270; J2405; L0172

== ENCOUNTER → 2018-02-22 | Outpatient (CLI) | payer MEDICARE, MEDICAID ==
[2017-11-12 15:17] VITALS: BMI 24.9
[~2018-02-22] MED LIST changes: -OXYC-375 PO; +OXYC1TAB78 PO
== END ==
LOC: AMB 18:28
PROVIDERS: ATTEND Nurse Practitioner
DX: M25.562 Pain in left knee (principal); M25.552 Pain in left hip; M25.522 Pain in left elbow; M54.9 Dorsalgia, unspecified; W19.XXXA Unspecified fall, initial encounter

== ENCOUNTER → 2018-03-03 | Outpatient (CLI) | payer MEDICARE, MEDICAID ==
[2017-11-12 15:17] VITALS: BMI 24.9
[2018-03-03 11:01] LABS: PLATELET COUNT, AUTOMATED 224 K/uL (150-450)
== END ==
LOC: LAB 10:30
PROVIDERS: ATTEND Nurse Practitioner Family
DX: D72.821 Monocytosis (symptomatic) (principal); B19.20 Unspecified viral hepatitis C without hepatic coma; I10 Essential (primary) hypertension; R51 Headache
CPT/HCPCS: 36415; 83835; 85025

== ENCOUNTER → 2018-03-18 | Outpatient (CLI) | payer MEDICARE, MEDICAID ==
[2017-11-12 15:17] VITALS: BMI 24.9
== END ==
LOC: LAB 12:17
PROVIDERS: ATTEND Nurse Practitioner Family
DX: B19.20 Unspecified viral hepatitis C without hepatic coma (principal)
CPT/HCPCS: 36415; 87522

== ENCOUNTER 2018-03-27 14:56 | Emergency (ER) | payer MEDICARE, MEDICAID ==
[2017-11-12 15:17] VITALS: Wt 72.6 kg
[~2018-03-27 14:56] MED LIST changes: +TRAZ-156 PO; -TRAZ50TA34 PO
--- NOTE | 2018-03-27 15:51 | RADIOLOGY IMAGING REPORT ---
FACILITY: [facility] [place]IENT NAME: Saravanan William : 1950 MR: [id number] V: [id number] EXAM DATE: ORDERING PHYSICIAN: SULLY HOWELL TECHNOLOGIST: Location: [facility] - [place] Patient: Saravanan William : 1950 Visit/Account:[id number] Date of Sevice: 03/27/2018 INDICATION: left hip pain, fall. DATE: 03/27/2018 3:39 PM. TECHNIQUE: HIP LEFT, KNEE 3 VIEW RIGHT COMPARISON: Knee radiographs February 22, 2018 FINDINGS: Left hip: The pelvic ring appears intact. No evidence of fracture or dislocation. The sacrum is parti ally secured by stool and bowel gas. Degenerative findings are severe within the incompletely imaged lumbar spine. Mild degenerative findings at the right hip. The left hip prosthesis is intact without dislocation or suggestion of periprosthetic fracture. Right knee: Total knee prosthesis appears intact without per prostatic fracture. There may be a trace effusion. Subtle density on the medial margin of the lower extremity adjacent to the proximal tibia is likely within the soft tissues rather than the joint space and could be an area of edema soft tiss ue calcification. IMPRESSION: 1. No acute osseous abnormality. 2. Soft tissue fullness at the medial margin of the knee could be edema or faint soft tissue calcific ation. 3. Chronic findings as above Report Dictated By: Renard Negro MD at 03/27/2018 3:39 PM Report E-Signed By: Renard Negro MD at 03/27/2018 3:47 PM WSN:[id number]
--- NOTE | 2018-03-27 15:52 | RADIOLOGY IMAGING REPORT ---
FACILITY: [facility] PATIENT NAME: Saravanan William : 1950 MR: [id number] V: [id number] EXAM DATE: ORDERING PHYSICIAN: SULLY HOWELL TECHNOLOG[place]: [place] [facility] [place] Saravanan [place] : 1950 Visit/Account:[id number] Date of Sevice: 03/27/2018 INDICATION: left hip pain, fall. DATE: 03/27/2018 3:39 PM. TECHNIQUE: HIP LEFT, KNEE 3 VIEW RIGHT COMPARISON: Knee radiographs February 22, 2018 FINDINGS: Left hip: The pelvic ring appears intact. No evidence of fracture or dislocation. The sacrum is parti ally secured by stool and bowel gas. Degenerative findings are severe within the incompletely imaged lumbar spine. Mild degenerative findings at the right hip. The left hip prosthesis is intact without dislocation or suggestion of periprosthetic fracture. Right knee: Total knee prosthesis appears intact without per prostatic fracture. There may be a trace effusion. Subtle density on the medial margin of the lower extremity adjacent to the proximal tibia is likely within the soft tissues rather than the joint space and could be an area of edema soft tiss ue calcification. IMPRESSION: 1. No acute osseous abnormality. 2. Soft tissue fullness at the medial margin of the knee could be edema or faint soft tissue calcific ation. 3. Chronic findings as above Report Dictated By: Renard Negro MD at 03/27/2018 3:39 PM Report E-Signed By: Renard Negro MD at 03/27/2018 3:47 PM WSN:[id number]
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
[2018-03-27 16:16] VITALS: BP 145/86
== END 2018-03-27 16:17 | disposition home or self-care (01) ==
LOC: ER 15:05
DX: S70.02XA Contusion of left hip, initial encounter (principal); S80.01XA Contusion of right knee, initial encounter; Z96.642 Presence of left artificial hip joint; Z96.651 Presence of right artificial knee joint; W01.0XXA Fall on same level from slipping, tripping and stumbling without subsequent striking against object, initial encounter
CPT/HCPCS: 99284

== ENCOUNTER → 2018-03-27 | Outpatient (CLI) | payer MEDICARE, MEDICAID ==
[2017-11-12 15:17] VITALS: BMI 24.9
[~2018-03-27] MED LIST changes: -TRAZ-156 PO; +TRAZ50TA34 PO
== END ==
LOC: AMB 14:37
PROVIDERS: ATTEND Nurse Practitioner
DX: M25.552 Pain in left hip (principal); Z96.642 Presence of left artificial hip joint; W01.0XXA Fall on same level from slipping, tripping and stumbling without subsequent striking against object, initial encounter
CPT/HCPCS: A0425; A0427

== ENCOUNTER → 2018-06-04 | Outpatient (REF) | payer MEDICARE, MEDICAID ==
[2017-11-12 15:17] VITALS: BMI 24.9
[~2018-06-04] MED LIST changes: +AMLO-111 PO; -AMLO-96 PO; -TRAZ-156 PO; +TRAZ50TA34 PO; +WHEE1EAC19 MC; +[UNRECOGNIZED DRUG - REMARK]
== END ==
LOC: ZZSENDIN 09:44
DX: N30.01 Acute cystitis with hematuria (principal)
CPT/HCPCS: 81001; 87088

== ENCOUNTER 2018-06-23 15:13 | Emergency (ER) | payer MEDICARE, MEDICAID ==
[2017-11-12 15:17] VITALS: Wt 72.8 kg
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
[2018-06-23 15:56] LABS: PLATELET COUNT, AUTOMATED 196 K/uL (150-450)
[2018-06-23 16:07] LABS: INR 1.03
--- NOTE | 2018-06-23 16:33 | RADIOLOGY IMAGING REPORT ---
FACILITY: [facility] - [place] PATIENT NAME: Saravanan William : 1950 MR: [id number] V: [id number] EXAM DATE: ORDERING PHYSICIAN: LJ CID TECHNOLOGIST: Location: [facility] - [place] Patient: Saravanan William : 1950 Visit/Account:[id number] Date of Sevice: 06/23/2018 HIP LEFT HISTORY: Fall. Comparison made to a previous pelvis and left hip film from 03/27/2018. FINDINGS: There is no obvious acute pelvic fracture. There is a tubular calcific density measuring approximate ly 4 mm in width and approximately 2.5 cm in length overlying the left obturator foramen/inferior pub ic ramus on the left that was not present on the previous examination. There is no obvious superior and inferior pubic ramus fracture noted on the left. The prosthetic left hip is well-maintained and aligned with no fracture or obvious loosening. IMPRESSION: There is a tubular calcific density overlying the left pubic ramus not perceived on the previous exam ination of uncertain significance. This was not perceived on pelvic and left hip films from March. Very slight perceived lucency is seen through the inferior pubic ramus on the study from March 27, 2018 . A review of the CT scan of the abdomen/pelvis from 05/31/2018 demonstrates an apparent healing subacu te fracture of the left inferior pubic ramus explaining today's finding. That fracture was not repor roel on the study from 05/31/2018. Results were discussed with LJ CID at 06/23/2018 4:28 PM. Report Dictated By: Mars Jacobson MD at 06/23/2018 4:12 PM Report E-Signed By: Mars Jacobson MD at 06/23/2018 4:29 PM WSN:[id number]
--- NOTE | 2018-06-23 16:47 | RADIOLOGY IMAGING REPORT ---
FACILITY: [facility] [place] PATIENT NAME: Saravanan William : 1950 MR: [id number] V: [id number] EXAM DATE: ORDERING PHYSICIAN: LJ CID TECHNOLOGIST: [place] [facility] [place] Saravanan William : 1950 Visit/Account:[id number] Date of Sevice: 06/23/2018 EXAMINATION: CT HEAD AND CERVICAL SPINE WITHOUT CONTRAST COMPARISON: 02/22/2018 and earlier. HISTORY: Fall with pain PROCEDURE: Noncontrast CT from the vertex through the skull base and multiplanar noncontrast cervical spine. One of the following dose optimization techniques was utilized in the performance of this exa m: Automated exposure control; adjustment of the mA and/or kV according to the patient's size; or use of an iterative reconstruction technique. Specific details can be referenced in the facility's [facility] CT exam operational policy. FINDINGS: CT head without contrast: Brain volume: Mild global volume loss. Hemorrhage/extra-axial fluid: None. Mass effect/midline shift/edema: None. Ischemia: Small regions of encephalomalacia within the bilateral parasagittal parietal lobes. Mild ch ronic white matter change elsewhere. No acute haines-white differentiation loss. Ventricles and basal cisterns: Within normal limits. Posterior fossa: Negative. Vessels: Carotid atherosclerosis. Calvarium, skull base, and scalp: Negative. Visualized sinuses and orbits: Within normal limits. CT cervical spine without contrast: Alignment: Within normal limits and unchanged. Cranio-cervical junction: Within normal limits. Mild degenerative change at the atlantodens interval. Vertebral bodies: No fracture. Posterior elements: Facet alignment is within normal limits with minor facet arthropathy. No fracture . Disc spaces: Multilevel moderate degenerative disc disease with bulky anterior osteophyte formation. Multilevel posterior disc and osteophyte complexes does result in multilevel canal stenosis, most not ably at C3-C4, C5-C6, and C6-C7 where there is at least moderate canal stenosis. Additionally, uncove rtebral joint hypertrophy at these levels is associated with at least moderate foraminal narrowing. Hardware: None. Soft tissues: No acute changes. Carotid atherosclerosis. Prominent calcification of the stylohyoid li gaments as before. Visualized upper chest: Negative. IMPRESSION: 1. No intracranial hemorrhage or mass effect. 2. Atrophy, chronic white matter disease, and small regions of encephalomalacia. No CT findings of ac mayank ischemia. 3. No cervical spine fracture or malalignment. 4. Degenerative change as detailed above. Report Dictated By: Kishor Steel MD at 06/23/2018 4:33 PM Report E-Signed By: Kishor Steel MD at 06/23/2018 4:43 PM WSN:[id number]
--- NOTE | 2018-06-23 16:48 | RADIOLOGY IMAGING REPORT ---
FACILITY: [facility] PATIENT NAME: Saravanan William : 1950 MR: [id number] V: [id number] EXAM DATE: ORDERING PHYSICIAN: LJ CID TECHNOLOGIST: [place] [facility] [place] [place] Saravanan [place] : 1950 Visit/Account:[id number] Date of Sevice: 06/23/2018 EXAMINATION: CT HEAD AND CERVICAL SPINE WITHOUT CONTRAST COMPARISON: 02/22/2018 and earlier. HISTORY: Fall with pain PROCEDURE: Noncontrast CT from the vertex through the skull base and multiplanar noncontrast cervical spine. One of the following dose optimization techniques was utilized in the performance of this exa m: Automated exposure control; adjustment of the mA and/or kV according to the patient's size; or use of an iterative reconstruction technique. Specific details can be referenced in the facility's [facility] CT exam operational policy. FINDINGS: CT head without contrast: Brain volume: Mild global volume loss. Hemorrhage/extra-axial fluid: None. Mass effect/midline shift/edema: None. Ischemia: Small regions of encephalomalacia within the bilateral parasagittal parietal lobes. Mild ch ronic white matter change elsewhere. No acute haines-white differentiation loss. Ventricles and basal cisterns: Within normal limits. Posterior fossa: Negative. Vessels: Carotid atherosclerosis. Calvarium, skull base, and scalp: Negative. Visualized sinuses and orbits: Within normal limits. CT cervical spine without contrast: Alignment: Within normal limits and unchanged. Cranio-cervical junction: Within normal limits. Mild degenerative change at the atlantodens interval. Vertebral bodies: No fracture. Posterior elements: Facet alignment is within normal limits with minor facet arthropathy. No fracture . Disc spaces: Multilevel moderate degenerative disc disease with bulky anterior osteophyte formation. Multilevel posterior disc and osteophyte complexes does result in multilevel canal stenosis, most not ably at C3-C4, C5-C6, and C6-C7 where there is at least moderate canal stenosis. Additionally, uncove rtebral joint hypertrophy at these levels is associated with at least moderate foraminal narrowing. Hardware: None. Soft tissues: No acute changes. Carotid atherosclerosis. Prominent calcification of the stylohyoid li gaments as before. Visualized upper chest: Negative. IMPRESSION: 1. No intracranial hemorrhage or mass effect. 2. Atrophy, chronic white matter disease, and small regions of encephalomalacia. No CT findings of ac mayank ischemia. 3. No cervical spine fracture or malalignment. 4. Degenerative change as detailed above. Report Dictated By: Kishor Steel MD at 06/23/2018 4:33 PM Report E-Signed By: Kishor Steel MD at 06/23/2018 4:43 PM WSN:[id number]
[2018-06-23 17:07] VITALS: BP 137/95
== END 2018-06-23 17:18 | disposition home or self-care (01) ==
LOC: ER 15:47
DX: S16.1XXA Strain of muscle, fascia and tendon at neck level, initial encounter (principal); S00.03XA Contusion of scalp, initial encounter; W01.198A Fall on same level from slipping, tripping and stumbling with subsequent striking against other object, initial encounter
CPT/HCPCS: 70450; 72125; 73502; 85025; 85610; 85730; 99284; A9270; 82040; 82247; 82310; 82374; 82435; 82565; 82947; 84075; 84132; 84155; 84295; 84450; 84460; 84520

== ENCOUNTER → 2018-06-23 | Outpatient (CLI) | payer MEDICARE, MEDICAID ==
[2017-11-12 15:17] VITALS: BMI 24.9
== END ==
LOC: AMB 14:47
PROVIDERS: ATTEND Nurse Practitioner
DX: M54.5 Low back pain (principal); M54.2 Cervicalgia; R55 Syncope and collapse; R42 Dizziness and giddiness; W18.30XA Fall on same level, unspecified, initial encounter
CPT/HCPCS: A0425; A0429

== ENCOUNTER 2018-07-24 08:43 | Emergency (ER) | payer MEDICARE, MEDICAID ==
[2017-11-12 15:17] VITALS: Wt 72.8 kg
--- NOTE | 2018-07-24 08:46 | ER Report ---
History and Physical Time Seen By MD: 08:46 HPI/ROS CHIEF COMPLAINT: Fall, headache, left hip and right knee pain HISTORY OF PRESENT ILLNESS: Patient is a 68-year-old male here with complaints of fall yesterday morning with subsequent headache, left hip and right knee pain with history of replacement in the past. Patient reports that he is feeling worse today prompting evaluation this morning. He does report significant headache not on anticoagulation. He also notes having pain in his left hip and his right knee both of which have been replaced in the past. Patient is neurovascularly intact at time of evaluation in no acute distress. C-collar is in place. REVIEW OF SYSTEMS: Constitutional: No fever, no chills. Eyes: No discharge. ENT: No sore throat. Cardiovascular: No chest pain, no palpitations. Respiratory: No cough, no shortness of breath. Gastrointestinal: No abdominal pain, no vomiting. Genitourinary: No hematuria. Musculoskeletal: + left hip and right knee pain Skin: No rashes. Neurological: + headache Allergies: Coded Allergies: No Known Drug Allergies (Unverified , 06/23/18) Home Meds Active Scripts Oxycodone Hcl/Acetaminophen (PERCOCET 10-325 MG TABLET) 1 Each Tablet, 1 TAB PO QID PRN for PAIN, #120 TAB 0 Refills Prov:LILLI ZAPATA APRN-Thee 07/11/18 Prazosin Hcl (PRAZOSIN HCL) 2 Mg Capsule, 2 CAP PO HS, #180 CAPSULE 1 Refill Prov:LILLI ZAPATA APRN-Thee 07/11/18 [Walk in Shower] No Conflict Check Prov:LILLI ZAPATA APRN-C 07/05/18 Tizanidine Hcl (TIZANIDINE HCL) 4 Mg Capsule, 4 MG PO TID PRN for SPASMS, #90 CAPSULE PRN Refills Prov:LILLI ZAPATA APRN-Thee 06/14/18 Amlodipine Besylate (AMLODIPINE BESYLATE) 5 Mg Tablet, 1 TAB PO DAILY PRN for Elevated Blood pressure, #90 TAB 1 Refill As needed for blood pressure greater than 140/90 Prov:LILLI ZAPATA APRN-Thee 05/31/18 Oxygen (OXYGEN) Inha, 3 L INH DIRECTED, #2 L Prov:LILLI ZAPATA APRN-C 05/31/18 Pantoprazole Sodium (PANTOPRAZOLE SODIUM) 40 Mg Tablet., 1 TAB PO QDAY, #90 TAB.SR 1 Refill Prov:LILLI ZAPATA APRN-C 05/24/18 Wheelchair (WHEELCHAIR) 1 Each Each, EACH MC DAILY, #1 Prov:LILLI ZAPATA APRN-C 05/20/18 Albuterol Sulfate 90 Mcg/Act (PROAIR HFA 90 MCG/ACT) 8.5 Gm Hfa.aer.ad, 2 PUFF IH QID PRN for WHEEZING, #1 INHALER 0 Refills Prov:LILLI ZAPATA APRN-Thee 05/13/18 [Handicapped Apt] No Conflict Check Prov:LILLI ZAPATA APRN-Thee 05/13/18 Duloxetine Hcl (CYMBALTA) 60 Mg Capsule., 1 TAB PO DAILY, #90 TAB 1 Refill Prov:LILLI ZAPATA APRN-C 04/06/18 Gabapentin (GABAPENTIN) 600 Mg Tablet, 2 CAP PO TID, #180 CAP 5 Refills Prov:LILLI ZAPATA APRN-Thee 04/06/18 Aspirin (ASPIRIN EC) 325 Mg Tablet., 325 MG PO QDAY for 30 Days, #30 TAB 0 Refills Prov:SMILEY SIERRA MD 11/30/17 Cyanocobalamin (Vitamin B-12) (B-12) 500 Mcg Tablet, 500 MCG PO QDAY, #90 TAB Prov:IZA MEHTA MD 10/29/16 Reported Medications Iron Polysaccharides Complex (POLYSACCHARIDE IRON 150) 150 Mg Capsule, 150 MG PO DAILY, CAPSULE 11/12/17 Hx Smoking: No Smoking Status: Never Smoker Exposure to Second Hand Smoke?: Yes Hx Substance Use Disorder: No Hx Alcohol Use: Yes Constitutional Vital Sign - Last 24 Hours 07/24/18 07/24/18 07/24/18 07/24/18 08:40 08:43 08:44 08:51 Temp 98.3 Pulse 64 ??? Resp 18 B/P (MAP) 89/68 89/68 (75) Pulse Ox 93 O2 Delivery Room Air O2 Flow Rate 3.0 11/4/18 11/4/18 11/4/18 11/4/18 08:58 09:00 09:13 09:28 Pulse 61 58 ??? B/P (MAP) 104/70 (81) Pulse Ox 97 94 07/24/18 07/24/18 07/24/18 07/24/18 09:30 09:43 09:58 10:00 Pulse 55 56 B/P (MAP) ???/??? (1665) 116/75 (89) Pulse Ox 96 97 07/24/18 07/24/18 07/24/18 07/24/18 10:13 10:28 10:30 10:35 Pulse 61 63 62 B/P (MAP) 131/83 (99) Pulse Ox 95 95 07/24/18 07/24/18 07/24/18 07/24/18 10:50 11:00 11:05 11:20 Pulse 59 58 61 B/P (MAP) 138/84 (102) Pulse Ox 96 99 96 Physical Exam General Appearance: The patient is alert, has no immediate need for airway pr otection and no signs of toxicity. NAD Eyes: Pupils equal and round no pallor or injection. ENT, Mouth: Mucous membranes are moist. Respiratory: There are no retractions, lungs are clear to auscultation. Cardiovascular: Regular rate and rhythm. Gastrointestinal: Abdomen is soft and non tender, no masses, bowel sounds normal. Neurological: No focal deficits Skin: Warm and dry, no rashes. Musculoskeletal: Neck is supple non tender. + left hip and right knee pain, NV exam is intact DIFFERENTIAL DIAGNOSIS: After history and physical exam differential diagnosis was considered for fracture, contusion, concussion, intracranial bleed, dislocation Medical Decision Making Data Points Result Diagram: 07/24/18 0840 07/24/18 0840 Laboratory Hematology Test 07/24/18 08:40 Red Blood Count 4.19 M/uL (4.00-5.60) Mean Corpuscular Volume 91.9 fL (80.0-96.0) Mean Corpuscular Hemoglobin 31.3 pg (26.0-33.0) Mean Corpuscular Hemoglobin Concent 34.0 g/dL (32.0-36.0) Red Cell Distribution Width 12.8 % (11.5-14.5) Mean Platelet Volume 8.0 fL (7.2-11.1) Neutrophils (%) (Auto) 40.9 % (39.4-72.5) Lymphocytes (%) (Auto) 39.8 % (17.6-49.6) Monocytes (%) (Auto) 15.9 % (4.1-12.4) Eosinophils (%) (Auto) 2.8 % (0.4-6.7) Basophils (%) (Auto) 0.6 % (0.3-1.4) Nucleated RBC Relative Count (auto) 0.1 /100WBC Neutrophils # (Auto) 2.1 K/uL (2.0-7.4) Lymphocytes # (Auto) 2.0 K/uL (1.3-3.6) Monocytes # (Auto) 0.8 K/uL (0.3-1.0) Eosinophils # (Auto) 0.1 K/uL (0.0-0.5) Basophils # (Auto) 0.0 K/uL (0.0-0.1) Nucleated RBC Absolute Count (auto) 0.00 K/uL Sodium Level 135 mmol/L (137-145) Potassium Level 3.8 mmol/L (3.5-5.0) Chloride Level 97 mmol/L (98-107) Carbon Dioxide Level 27 mmol/L (22-30) Blood Urea Nitrogen 13 mg/dl (9-21) Creatinine 1.00 mg/dl (0.66-1.25) Glomerular Filtration Rate Calc > 60.0 Random Glucose 97 mg/dl (75-110) Calcium Level 8.9 mg/dl (8.4-10.2) Total Bilirubin 0.4 mg/dl (0.2-1.3) Aspartate Amino Transf (AST/SGOT) 22 U/L (0-35) Alanine Aminotransferase (ALT/SGPT) 22 U/L (0-56) Alkaline Phosphatase 68 U/L (0-126) Total Protein 7.0 g/dl (6.3-8.2) Albumin 4.0 g/dl (3.5-5.0) Lipase 28 U/L (23-300) Chemistry Test 07/24/18 08:40 White Blood Count 5.0 k/uL (4.5-11.0) Red Blood Count 4.19 M/uL (4.00-5.60) Hemoglobin 13.1 g/dL (14.0-18.0) Hematocrit 38.5 % (42.0-52.0) Mean Corpuscular Volume 91.9 fL (80.0-96.0) Mean Corpuscular Hemoglobin 31.3 pg (26.0-33.0) Mean Corpuscular Hemoglobin Concent 34.0 g/dL (32.0-36.0) Red Cell Distribution Width 12.8 % (11.5-14.5) Platelet Count 220 K/uL (150-450) Mean Platelet Volume 8.0 fL (7.2-11.1) Neutrophils (%) (Auto) 40.9 % (39.4-72.5) Lymphocytes (%) (Auto) 39.8 % (17.6-49.6) Monocytes (%) (Auto) 15.9 % (4.1-12.4) Eosinophils (%) (Auto) 2.8 % (0.4-6.7) Basophils (%) (Auto) 0.6 % (0.3-1.4) Nucleated RBC Relative Count (auto) 0.1 /100WBC Neutrophils # (Auto) 2.1 K/uL (2.0-7.4) Lymphocytes # (Auto) 2.0 K/uL (1.3-3.6) Monocytes # (Auto) 0.8 K/uL (0.3-1.0) Eosinophils # (Auto) 0.1 K/uL (0.0-0.5) Basophils # (Auto) 0.0 K/uL (0.0-0.1) Nucleated RBC Absolute Count (auto) 0.00 K/uL Glomerular Filtration Rate Calc > 60.0 Calcium Level 8.9 mg/dl (8.4-10.2) Total Bilirubin 0.4 mg/dl (0.2-1.3) Aspartate Amino Transf (AST/SGOT) 22 U/L (0-35) Alanine Aminotransferase (ALT/SGPT) 22 U/L (0-56) Alkaline Phosphatase 68 U/L (0-126) Total Protein 7.0 g/dl (6.3-8.2) Albumin 4.0 g/dl (3.5-5.0) Lipase 28 U/L (23-300) ED Course/Re-evaluation ED Course Patient is a 68-year-old male here status post fall 2 days ago with complaints of headache, left hip and right knee pain. Patient is report of recurrent falls at home with symptoms of intermittent lightheadedness and vertigo. Labs were found to be unremarkable, blood counts were within normal limits, electrolytes were stable. CT imaging of the head and C-spine showed no acute fractures or intracranial bleeding. X-ray imaging of the hip and knee showed no acute findings. I advised the patient to follow-up with his PCP and consider following up with a neurologist for further evaluation of dizziness and lack of balance. Patient voiced understanding of plan. Decision to Disposition Date: Jul 24, 2018 Decision to Disposition Time: 11:20 Depart Departure Latest Vital Signs Vital Signs Date Time Temp Pulse Resp B/P (MAP) Pulse Ox O2 Delivery O2 Flow Rate FiO2 07/24/18 11:20 61 96 07/24/18 11:00 138/84 (102) 07/24/18 08:51 3.0 07/24/18 08:40 98.3 18 Room Air Impression: Primary Impression: Fall from standing Additional Impressions: Contusion of right knee Contusion of left hip Condition: Improved Disposition: HOME OR SELF-CARE Referrals: LILLI ZAPATA APRN [employer]-C (PCP) Patient Instructions: Fall Prevention (DC) Additional Instructions: Please follow-up with your family physician in the next 2 days. Please return promptly if he have recurrent falls, weakness, numbness. No acute fractures or intracranial bleeding were identified on today's x-rays or CT scans. Problem Qualifiers DELORES DAS DO Jul 24, 2018 08:46
[2018-07-24] MEDS ORDERED: KETOROLAC 30 MG/ML VIAL IM ONE (08:55)
[2018-07-24 09:08] LABS: PLATELET COUNT, AUTOMATED 220 K/uL (150-450)
--- NOTE | 2018-07-24 10:25 | RADIOLOGY IMAGING REPORT ---
FACILITY: [facility] - [place] PATIENT NAME: Saravanan William : 1950 MR: [id number] V: [id number] EXAM DATE: ORDERING PHYSICIAN: DELORES DAS TECHNOLOGIST: Location: [facility] Patient: Saravanan William : 1950 Visit/Account:[id number] Date of Sevice: 07/24/2018 Technique: KNEE 3 VIEW RIGHT HISTORY: fall Comparison studies: Right knee radiographs March 27, 2018 FINDINGS: Present is a right knee arthroplasty. There is no acute fracture. The alignment of the arth roplasty is maintained. Knee joint effusion is present. There is persistent soft tissue prominence of medial to the knee joint. IMPRESSION: 1. No acute osseous process. Report Dictated By: Lon Winchester DO at 07/24/2018 10:18 AM Report E-Signed By: Lon Winchester DO at 07/24/2018 10:22 AM WSN:[id number]
--- NOTE | 2018-07-24 10:28 | RADIOLOGY IMAGING REPORT ---
FACILITY: [facility] PATIENT NAME: Saravanan William : 1950 MR: [id number] V: [id number] EXAM DATE: ORDERING PHYSICIAN: DELORES DAS TECHNOLOGIST: Location: [facility] [place] Patient: Saravanan William : 1950 Visit/Account:[id number] Date of Sevice: 07/24/2018 Technique: HIP LEFT HISTORY: fall Comparison studies: Left hip radiographs June 23, 2018 FINDINGS: There is no acute fracture. Noted is a healing fracture involving the inferior left pubic r amus. Present is a left hip arthroplasty. No worsening periprosthetic lucency to suggest loosening. S oft tissues are unremarkable. IMPRESSION: 1. Left hip arthroplasty without evidence of hardware complication. 2. Healing left inferior pubic ramus fracture. Report Dictated By: Lon Winchester DO at 07/24/2018 10:22 AM Report E-Signed By: Lon Winchester DO at 07/24/2018 10:25 AM WSN:[id number]
--- NOTE | 2018-07-24 10:57 | RADIOLOGY IMAGING REPORT ---
FACILITY: [facility] - [place] PATIENT NAME: Saravanan William : 1950 MR: [id number] V: [id number] EXAM DATE: ORDERING PHYSICIAN: DELORES DAS TECHNOLOGIST: Location: [facility] Patient: Saravanan William : 1950 Visit/Account:[id number] Date of Sevice: 07/24/2018 CT Head without contrast Indication: Fall Comparison: CT head February 22, 2018 Technique: Axial CT images were obtained through the brain from the skull base to the vertex without administration of IV contrast. Reformatted coronal and sagittal images were also obtained. One of the following dose optimization techniques was utilized in the performance of this exam: Autom ated exposure control; adjustment of the mA and/or kV according to the patient's size; or use of an i terative reconstruction technique. Specific details can be referenced in the facility's radiology C T exam operational policy. Findings: There is no acute hemorrhage, midline shift or mass effect. No extra-axial fluid collecti ons. Periventricular and subcortical white matter changes are again identified; likely the sequela o f chronic small vessel ischemia. 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 There is no acute fracture. The mastoid air cells are clear. M ucous retention cyst is noted within the right maxillary sinus. IMPRESSION: 1. No acute intracranial process. 2. Chronic white matter changes as well as encephalomalacia; unchanged from comparison exam. Report Dictated By: Lon Winchester DO at 07/24/2018 10:41 AM Report E-Signed By: Lon Winchester DO at 07/24/2018 10:53 AM WSN:[id number]
[2018-07-24 11:00] VITALS: BP 138/84
--- NOTE | 2018-07-24 11:01 | RADIOLOGY IMAGING REPORT ---
FACILITY: [facility] PATIENT NAME: Saravanan William : 1950 MR: [id number] V: [id number] EXAM DATE: ORDERING PHYSICIAN: DELORES DAS TECHNOLOGIST: Location: [facility] - [place] Patient: Saravanan William : 1950 Visit/Account:[id number] Date of Sevice: 07/24/2018 EXAMINATION: CT cervical spine without IV contrast HISTORY: All COMPARISON: CT cervical spine June 23, 2018 TECHNIQUE: Axial images were obtained from the skull base through the upper thoracic spine without I V contrast administration. Coronal and sagittal reformatted images were obtained from the axial [facility] e data. One of the following dose optimization techniques was utilized in the performance of this exam: Autom ated exposure control; adjustment of the mA and/or kV according to the patient's size; or use of an i terative reconstruction technique. Specific details can be referenced in the facility's radiology C T exam operational policy. FINDINGS: There is no acute fracture. The vertebral body heights are maintained. Diffuse, multilevel degenerati ve changes are again noted within the cervical spine including intervertebral disc space narrowing, p roliferative and bridging anterior endplate osteophytosis as well as sclerosis. No acute alignment ab normality. Prevertebral soft tissues are unremarkable. Atherosclerotic changes are again noted within the vasculature. Imaged portions of the lung apices demonstrate no acute findings. IMPRESSION: 1. No acute fracture. 2. Advanced degenerative findings; nonsignificantly changed. Report Dictated By: Lon Winchester DO at 07/24/2018 10:53 AM Report E-Signed By: Lon Winchester DO at 07/24/2018 10:57 AM WSN:[id number]
== END 2018-07-24 11:18 | disposition home or self-care (01) ==
LOC: ER 08:49
DX: S80.01XA Contusion of right knee, initial encounter (principal); S70.02XA Contusion of left hip, initial encounter
CPT/HCPCS: 70450; 72125; 73502; 73562; 83690; 85025; 96372; 99284; J1885; 82040; 82247; 82310; 82374; 82435; 82565; 82947; 84075; 84132; 84155; 84295; 84450; 84460; 84520; L0172

== ENCOUNTER → 2018-07-24 | Outpatient (CLI) | payer MEDICARE, MEDICAID ==
[2017-11-12 15:17] VITALS: BMI 24.9
[~2018-07-24] MED LIST changes: +[UNRECOGNIZED DRUG - OTHER]
== END ==
LOC: AMB 08:22
PROVIDERS: ATTEND Nurse Practitioner
DX: R53.1 Weakness (principal); S00.81XA Abrasion of other part of head, initial encounter; W19.XXXA Unspecified fall, initial encounter
CPT/HCPCS: A0425; A0427

== ENCOUNTER → 2018-08-05 | Outpatient (CLI) | payer MEDICARE, MEDICAID ==
[2017-11-12 15:17] VITALS: BMI 24.9
[~2018-08-05] MED LIST changes: +MIRT7.5T2 PO; +SULF-198 PO
--- NOTE | 2018-08-05 18:23 | RADIOLOGY IMAGING REPORT ---
[place] [facility] [place]: Saravanan William : 1950 MR: [id number] V: [id number] EXAM DATE: ORDERING PHYSICIAN: LILLI ZAPATA TECHNOLOGIST: Location: [facility] Patient: Saravanan William : 1950 Visit/Account:[id number] Date of Sevice: 08/05/2018 EXAMINATION: Left elbow series, 3 views 08/05/2018 4:41 PM HISTORY: left elbow pain. Fall today in the shower with pain. Remote history of fracture with surgery . COMPARISON: 02/22/2018 FINDINGS: Screw in the proximal ulna. Chronic calcification or ossification behind the distal humeru s on the lateral. Stable corticated ossific focus along the medial upper condyle. Spurring along the elbow. No acute bony injury evident. No visible joint effusion. Radiocapitellar alignment is normal. IMPRESSION: Chronic findings, as above. No acute bony injury of left elbow evident. Report Dictated By: Donald Bobby MD at 08/05/2018 6:18 PM Report E-Signed By: Donald Bobby MD at 08/05/2018 6:19 PM WSN:[id number]
== END ==
LOC: RAD 16:31
PROVIDERS: ATTEND Nurse Practitioner Family
DX: M25.822 Other specified joint disorders, left elbow (principal); Z96.7 Presence of other bone and tendon implants

== ENCOUNTER 2018-08-09 16:50 | Emergency (ER) | payer MEDICARE, MEDICAID ==
[2017-11-12 15:17] VITALS: Wt 74.8 kg
[~2018-08-09 16:50] MED LIST changes: -SULF-198 PO
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
[2018-08-09] MEDS ORDERED: RANI-366 PO (17:06)
[2018-08-09] MEDS ORDERED: SUCR1TAB51 PO (17:06)
[2018-08-09] MEDS ORDERED: SULF-198 PO (17:06)
--- NOTE | 2018-08-09 18:00 | RADIOLOGY IMAGING REPORT ---
FACILITY: [facility] PATIENT NAME: Saravanan William : 1950 MR: [id number] V: [id number] EXAM DATE: ORDERING PHYSICIAN: TAMMY ALFONSO TECHNOLOGIST: Location: [facility] [place] Patient: Saravanan William : 1950 Visit/Account:[id number] Date of Sevice: 08/09/2018 EXAMINATION: Left knee 4 views HISTORY: Fall. Knee pain. COMPARISON: 02/22/2018. FINDINGS: Bones of the left knee demonstrate normal alignment, without evidence of acute fracture or dislocatio n. There is mild joint space narrowing in the medial and lateral compartments, with mild degenerative ch anges at the patellofemoral joint. Mild superior and inferior patellar spurring. There is an old healed fracture of the proximal fibular shaft. Generalized osteopenia. Soft tissues are radiographically unremarkable. IMPRESSION: 1. No acute osseous findings at the left knee. 2. Mild tricompartmental degenerative changes. Report Dictated By: Yefri Lundberg MD at 08/09/2018 5:54 PM Report E-Signed By: Yefri Lundberg MD at 08/09/2018 5:56 PM WSN:[id number]
--- NOTE | 2018-08-09 18:10 | RADIOLOGY IMAGING REPORT ---
FACILITY: [facility] PATIENT NAME: Saravanan William : 1950 MR: [id number] V: [id number] EXAM DATE: ORDERING PHYSICIAN: TAMMY ALFONSO TECHNOLOGIST: [place] [facility] [place] Saravanan William : 1950 Visit/Account:[id number] Date of Sevice: 08/09/2018 EXAMINATION: Lumbar Spine 5 views HISTORY: Fall. Back pain. COMPARISON: 02/22/2018. FINDINGS: There are 5 lumbar-type vertebral segments. No radiographic evidence of acute fracture or subluxation in the lumbar spine. Normal alignment. Vert ebral body height is maintained. Stable multilevel degenerative changes in the lumbar spine. There is moderate to severe disc space na rrowing at the L1-L2 through L4-L5 interspaces, with endplate osteophyte formation. Mild disc space n arrowing at L5-S1. Multilevel facet arthropathy. There are posterior laminectomy defects at the L1-L3 levels. IMPRESSION: 1. No acute osseous findings along the lumbar spine. Normal alignment. 2. Stable multilevel spondylotic changes, with prior posterior decompressive laminectomies. Report Dictated By: Yefri Lundberg MD at 08/09/2018 6:03 PM Report E-Signed By: Yefri Lundberg MD at 08/09/2018 6:06 PM WSN:[id number]
[2018-08-09 18:15] VITALS: BP 108/86
[2018-08-09] MEDS ORDERED: ORPHENADRINE 60MG/2ML INJ IVP ONE (18:25)
== END 2018-08-09 18:48 | disposition home or self-care (01) ==
LOC: ER 17:14
DX: S80.02XA Contusion of left knee, initial encounter (principal); M54.5 Low back pain; W18.30XA Fall on same level, unspecified, initial encounter
CPT/HCPCS: 96374; 99284; J2360; 72120; 73564

== ENCOUNTER → 2018-08-09 | Outpatient (CLI) | payer MEDICARE, MEDICAID ==
[2017-11-12 15:17] VITALS: BMI 24.9
== END ==
LOC: AMB 16:36
PROVIDERS: ATTEND Nurse Practitioner
DX: R42 Dizziness and giddiness (principal); G89.29 Other chronic pain
CPT/HCPCS: A0425; A0429

== ENCOUNTER → 2018-08-30 | Outpatient (CLI) | payer MEDICARE, MEDICAID ==
[2017-11-12 15:17] VITALS: BMI 24.9
[~2018-08-30] MED LIST changes: -GABA-506 PO; +GABA-507 PO; +SULF-198 PO
--- NOTE | 2018-08-30 14:14 | RADIOLOGY IMAGING REPORT ---
FACILITY: [facility] - [place] PATIENT NAME: Saravanan William : 1950 MR: [id number] V: [id number] EXAM DATE: ORDERING PHYSICIAN: LILLI ZAPATA TECHNOLOGIST: Location: [facility] - [place] Patient: Saravanan William : 1950 Visit/Account:[id number] Date of Sevice: 08/30/2018 CAROTID HISTORY: dizziness COMPARISON: March 11, 2016 FINDINGS: Grayscale, duplex and color Doppler interrogation of the extracranial carotid and vertebral arteries was performed bilateral. On the right, peak systolic velocities within the common and internal carotid arteries are 92 and 58 cm/sec respectively. There is a small amount of plaque at the right carotid bulb and proximal right internal carotid artery. Antegrade flow within the common, internal and external carotid arteries as well as vertebral artery. ICA/CCA ratio 0.9. On the left, peak systolic velocities within the common and internal carotid arteries are 125 and 74 cm/sec respectively. Very small amount of plaque at the left carotid bulb and proximal left internal carotid artery. Antegrade flow within the common, internal and external carotid arteries as well as vertebral artery. ICA/CCA ratio 0.9. IMPRESSION: Small amount of plaque identified the carotid bulbs and proximal internal carotid arteries although n o hemodynamically significant lesions identified Velocity criteria are extrapolated from diameter data as defined by the Society of Radiologists in Ul trasound Consensus Conference Radiology 2003; 229;340-346 Report Dictated By: Abbey Corbett MD at 08/30/2018 2:10 PM Report E-Signed By: Abbey Corbett MD at 08/30/2018 2:11 PM WSN:[email or web address]
== END ==
LOC: US 08-24 00:50
PROVIDERS: ATTEND Nurse Practitioner Family
DX: R42 Dizziness and giddiness (principal)
CPT/HCPCS: 93880

== ENCOUNTER → 2018-09-10 | Outpatient (CLI) | payer MEDICARE, MEDICAID ==
[2017-11-12 15:17] VITALS: BMI 24.9
== END ==
LOC: AMB 17:24
PROVIDERS: ATTEND Nurse Practitioner
DX: R55 Syncope and collapse (principal); M54.2 Cervicalgia; R53.1 Weakness; W18.12XA Fall from or off toilet with subsequent striking against object, initial encounter; Y92.031 Bathroom in apartment as the place of occurrence of the external cause
CPT/HCPCS: A0425; A0429

== ENCOUNTER → 2018-09-10 | Outpatient (CLI) | payer MEDICARE, MEDICAID ==
[2017-11-12 15:17] VITALS: BMI 24.9
== END ==
LOC: AMB 21:58
PROVIDERS: ATTEND Nurse Practitioner
DX: R53.1 Weakness (principal); F10.129 Alcohol abuse with intoxication, unspecified
CPT/HCPCS: A0425; A0428

== ENCOUNTER → 2018-09-23 | Outpatient (CLI) | payer MEDICARE, MEDICAID ==
[2017-11-12 15:17] VITALS: BMI 24.9
[2018-09-23 10:16] LABS: PLATELET COUNT, AUTOMATED 232 K/uL (150-450)
== END ==
LOC: LAB 10:01
PROVIDERS: ATTEND Nurse Practitioner Family
DX: R10.9 Unspecified abdominal pain (principal)
CPT/HCPCS: 36415; 82040; 82247; 82310; 82374; 82435; 82565; 82947; 84075; 84132; 84155; 84295; 84450; 84460; 84520; 85025

== ENCOUNTER → 2018-09-30 | Outpatient (CLI) | payer MEDICARE, MEDICAID ==
[2017-11-12 15:17] VITALS: BMI 24.9
[~2018-09-30] MED LIST changes: -AMLO-111 PO; +AMLO-125 PO; -GABA-503 PO; -GABA-507 PO; +GABA-533 PO; +GABA-535 PO
[2018-09-30 12:34] LABS: PLATELET COUNT, AUTOMATED 218 K/uL (150-450)
== END ==
LOC: LAB 12:01
PROVIDERS: ATTEND Nurse Practitioner Family
DX: Z71.41 Alcohol abuse counseling and surveillance of alcoholic (principal); K25.9 Gastric ulcer, unspecified as acute or chronic, without hemorrhage or perforation; D64.9 Anemia, unspecified; I10 Essential (primary) hypertension; F10.10 Alcohol abuse, uncomplicated
CPT/HCPCS: 36415; 80305; 84443; 85025; 86580; G0480; 80320; 82040; 82247; 82310; 82374; 82435; 82565; 82947; 84075; 84132; 84155; 84295; 84450; 84460; 84520

== ENCOUNTER → 2018-10-03 | Outpatient (CLI) | payer MEDICARE, MEDICAID ==
[2017-11-12 15:17] VITALS: BMI 24.9
--- NOTE | 2018-10-03 11:05 | EKG ---
FACILITY: [facility] PATIENT NAME: LAURA BROWN : [id number] MR: [id number] V: [id number] EXAM DATE: ORDERING PHYSICIAN: LILLI ZAPATA TECHNOLOGIST: VITO Test Reason : PHYSICIAL Blood Pressure : / mmHG Vent. Rate : 077 BPM Atrial Rate : 077 BPM P-R Int : 156 ms QRS Dur : 100 ms QT Int : 412 ms P-R-T Axes : 058 063 059 degrees QTc Int : 466 ms Normal sinus rhythm Normal ECG When compared with ECG of 10-SEP-2018 17:54, No significant change was found Referred By: BENNY Confirmed By:
== END ==
LOC: RESP 10:13
PROVIDERS: ATTEND Nurse Practitioner Family
DX: Z02.9 Encounter for administrative examinations, unspecified (principal)

== ENCOUNTER 2018-11-22 13:28 | Emergency (ER) | payer MEDICARE, MEDICAID ==
[2017-11-12 15:17] VITALS: Wt 66.0 kg
[2018-11-22 13:34] VITALS: BP 154/101
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
[2018-11-22] MEDS ORDERED: NS(*) 0.9% 1000 ML BAG 1,000 ML IV ONE (13:50)
[2018-11-22] MEDS ORDERED: fentaNYL CITR 100 MCG/2 ML AMP IVP ONE (13:50)
--- NOTE | 2018-11-22 15:28 | RADIOLOGY IMAGING REPORT ---
FACILITY: [facility] PATIENT NAME: Saravanan William : 1950 MR: [id number] V: [id number] EXAM DATE: ORDERING PHYSICIAN: BERTHA CLANCY TECHNOLOGIST: [place] [facility] [place] Saravanan William : 1950 Visit/Account:[id number] Date of Sevice: 11/22/2018 HIP LEFT HISTORY: fall, left hip, right elbow, right knee pain Additional history: None COMPARISON: 07/24/2018 FINDINGS: Again seen is left hip bipolar hemiarthroplasty unchanged. Pelvic girdle and left hip appears intact . No evidence of dislocation or fractures. Spondylitic changes noted lower lumbar spine. IMPRESSION: No acute pathology identified. Report Dictated By: Hermann Fisher MD at 11/22/2018 3:23 PM Report E-Signed By: Hermann Fisher MD at 11/22/2018 3:25 PM WSN:[email or web address]
--- NOTE | 2018-11-22 15:44 | RADIOLOGY IMAGING REPORT ---
FACILITY: [facility] PATIENT NAME: Saravanan William : 1950 MR: [id number] V: [id number] EXAM DATE: ORDERING PHYSICIAN: BERTHA CLANCY TECHNOLOGIST: Location: [facility] Patient: Saravanan William : 1950 Visit/Account:[id number] Date of Sevice: 11/22/2018 EXAMINATION: Head CT without intravenous contrast HISTORY: Fall, headache and pain TECHNIQUE: Contiguous axial images were obtained from the skull base to the vertex without intraven ous contrast. Sagittal and coronal reformatted images are also submitted. Dose Lowering Technique One of the following dose optimization techniques was utilized in the performance of this exam: Autom ated exposure control; adjustment of the mA and/or kV according to the patient's size; or use of an i terative reconstruction technique. Specific details can be referenced in the facility's radiology C T exam operational policy. COMPARISON: Degenerative 2017 FINDINGS: Brain volume: Mild cortical atrophy Ventricles: There is severe mass effect on the left lateral ventricle and third ventricle Acute ischemic changes: None. Hemorrhage: There is a holohemispheric left-sided subdural hematoma measuring approximately 1.6 cm i n maximum thickness. There Is a 1.1 cm [id number] midline shift and mild downward transtentorial herniation. There is a trace amount of intraventricular hemorrhage in the left temporal horn Masses / edema: None. Leon-white: As above White matter: As above Vessels: There calcifications in the carotid siphons bilaterally Extra-axial: Please see above hemorrhage Calvarium / scalp: Negative. Skull base / visualized face: Negative. Visualized sinuses / orbits: There is a polypoid lesion along the anterior wall of the right maxilla ry sinus which was present previously IMPRESSION: There is a large holohemispheric left-sided subdural hematoma measuring approximately 1.6 in meters i n maximum thickness producing a 1.1 cm left to right midline shift and mild downward transtentorial h erniation.. There is a trace amount of intraventricular hemorrhage in the left temporal horn Results were called to BERTHA CLANCY at 11/22/2018 3:25 PM. Report Dictated By: Abbey Corbett MD at 11/22/2018 3:30 PM Report E-Signed By: Abbey Corbett MD at 11/22/2018 3:39 PM WSN:[email or web address]
--- NOTE | 2018-11-22 15:52 | RADIOLOGY IMAGING REPORT ---
FACILITY: [facility] [place] PATIENT NAME: Saravanan William : 1950 MR: [id number] V: [id number] EXAM DATE: ORDERING PHYSICIAN: BERTHA CLANCY TECHNOLOGIST: Location: [facility] [place] Patient: Saravanan William : 1950 Visit/Account:[id number] Date of Sevice: 11/22/2018 KNEE 4 VIEW RIGHT Given history: fall, left hip, right elbow, right knee pain COMPARISON STUDIES: Radiographs 07/24/2018 FINDINGS: Osseous structures: Intact without evidence of fracture . Joints: Remote total right knee arthroplasty unchanged in appearance Soft tissues: normal . IMPRESSION: No evidence of acute trauma. Report Dictated By: Hermann Fisher MD at 11/22/2018 3:46 PM Report E-Signed By: Hermann Fisher MD at 11/22/2018 3:47 PM WSN:[email or web address]
--- NOTE | 2018-11-22 15:54 | RADIOLOGY IMAGING REPORT ---
FACILITY: [facility] PATIENT NAME: Saravanan William : 1950 MR: [id number] V: [id number] EXAM DATE: ORDERING PHYSICIAN: BERTHA CLANCY TECHNOLOGIST: Location: [facility] Patient: Saravanan William : 1950 Visit/Account:[id number] Date of Sevice: 11/22/2018 ELBOW 3 VIEW RIGHT HISTORY: fall, left hip, right elbow, right knee pain Additional history: None COMPARISON: Comparison radiograph 09/10/2018 FINDINGS: There is mild osteoarthritic changes seen in the right elbow joint. There is an acute fracture throu gh a olecranon enthesophyte at the triceps tendon attachment. There is overlying soft tissue swellin g. Remaining osseous structures intact. IMPRESSION: Acute fracture through a small olecranon enthesophyte (triceps tendon attachment) with soft tissue sw elling Report Dictated By: Hermann Fisher MD at 11/22/2018 3:48 PM Report E-Signed By: Hermann Fisher MD at 11/22/2018 3:50 PM WSN:[email or web address]
--- NOTE | 2018-11-22 15:56 | RADIOLOGY IMAGING REPORT ---
FACILITY: [facility] PATIENT NAME: Saravanan William : 1950 MR: [id number] V: [id number] EXAM DATE: ORDERING PHYSICIAN: BERTHA CLANCY TECHNOLOGIST: Location: [facility] [place] Patient: Saravanan William : 1950 Visit/Account:[id number] Date of Sevice: 11/22/2018 CHEST SINGLE AP History: fall, left hip, right elbow, right knee pain FINDINGS: Comparison studies: 09/10/2018 Tubes and Lines: None. Lungs and pleura: Well aerated. No evidence of focal consolidation or pleural effusions. Mediastinum: normal. Cardiac silhouette: normal . Osseous structures: Mild spondylitic changes seen to the thoracic spine. No acute fractures identi fied. IMPRESSION: No acute pathology identified. Report Dictated By: Hermann Fisher MD at 11/22/2018 3:50 PM Report E-Signed By: Hermann Fisher MD at 11/22/2018 3:51 PM WSN:[email or web address]
[2018-11-22 15:58] LABS: PLATELET COUNT, AUTOMATED 236 K/uL (150-450)
--- NOTE | 2018-11-22 16:12 | RADIOLOGY IMAGING REPORT ---
FACILITY: [facility] PATIENT NAME: Saravanan William : 1950 MR: [id number] V: [id number] EXAM DATE: ORDERING PHYSICIAN: BERTHA CLANCY TECHNOLOGIST: Location: [facility] Patient: Saravanan William : 1950 Visit/Account:[id number] Date of Sevice: 11/22/2018 EXAMINATION: CT Cervical spine without intravenous contrast HISTORY: Fall COMPARISON: 09/10/2018 TECHNIQUE: Axial images were obtained from the skull base through the upper thoracic spine without I V contrast administration. Coronal and sagittal reformatted images were generated from the axial sour ce data. One of the following dose optimization techniques was utilized in the performance of this exam: autom ated exposure control; adjustment of the mA and/or kV according to patient size; or use of iterative reconstruction technique. Specific details can be referenced in the facility's radiology CT exam ope rational policy. FINDINGS: Vertebral bodies and posterior elements: Normal vertebral body heights. No fracture. Multilevel anter ior flowing ossification keeping with diffuse idiopathic skeletal hyperostosis. Alignment: Normal. Disc Spaces: Moderate degenerative narrowing of multiple disc spaces. Multilevel degenerative foramin al narrowing. Soft tissues: Normal. Visualized upper chest: Normal. Other: Left sided acute subdural hemorrhage, see head CT report for further details. IMPRESSION: No acute cervical spine fracture or acute cervical spine abnormality. Diffuse idiopathic skeletal hyperostosis and multilevel disc space degeneration as before. Report Dictated By: Bryce Shetty MD at 11/22/2018 4:02 PM Report E-Signed By: Bryce Shetty MD at 11/22/2018 4:08 PM WSN:[email or web address]
--- NOTE | 2018-11-22 16:18 | RADIOLOGY IMAGING REPORT ---
FACILITY: [facility] [place] PATIENT NAME: Saravanan William : 1950 MR: [id number] V: [id number] EXAM DATE: ORDERING PHYSICIAN: BERTHA CLANCY TECHNOLOGIST: Location: [facility] Patient: Saravanan William : 1950 Visit/Account:[id number] Date of Sevice: 11/22/2018 EXAMINATION: CT Thoracic spine without intravenous contrast HISTORY: Fall COMPARISON: 09/10/2018 TECHNIQUE: Axial images were obtained through the thoracic spine without IV contrast administration. Coronal and sagittal reformatted images were generated from the source data. One of the following dose optimization techniques was utilized in the performance of this exam: autom ated exposure control; adjustment of the mA and/or kV according to patient size; or use of iterative reconstruction technique. Specific details can be referenced in the facility's radiology CT exam ope rational policy. FINDINGS: Alignment: Normal. Vertebral bodies and posterior elements: Normal vertebral body heights. Multilevel anterior flowing o ssification in keeping with idiopathic skeletal hyperostosis. No fracture. Hardware: None. Disc Spaces: Normal. Soft tissues: No significant abnormality. Visualized lungs / abdomen: No significant abnormality. Other: A few chronic left rib fracture deformities. IMPRESSION: No acute thoracic spine abnormality. Diffuse idiopathic skeletal hyperostosis. Report Dictated By: Bryce Shetty MD at 11/22/2018 4:08 PM Report E-Signed By: Bryce Shetty MD at 11/22/2018 4:14 PM WSN:[email or web address]
--- NOTE | 2018-11-22 16:25 | RADIOLOGY IMAGING REPORT ---
FACILITY: [facility] PATIENT NAME: Saravanan William : 1950 MR: [id number] V: [id number] EXAM DATE: ORDERING PHYSICIAN: BERTHA CLANCY TECHNOLOGIST: Location: [facility] Patient: Saravanan William : 1950 Visit/Account:[id number] Date of Sevice: 11/22/2018 EXAMINATION: CT Lumbar spine without intravenous contrast HISTORY: Fall COMPARISON: 09/10/2018 TECHNIQUE: Axial images were obtained through the lumbar spine without IV contrast administration. C oronal and sagittal reformatted images were generated from the source data. One of the following dose optimization techniques was utilized in the performance of this exam: autom ated exposure control; adjustment of the mA and/or kV according to patient size; or use of iterative reconstruction technique. Specific details can be referenced in the facility's radiology CT exam ope rational policy. FINDINGS: Alignment: Normal. Vertebral bodies and posterior elements: Normal vertebral body heights. 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 No fracture. Disc Spaces: Moderate to severe L1-2 and severe L2-3 unchanged disc space degeneration. Moderate to s evere unchanged L4-5 disc space degeneration. Multilevel anterior flowing ossification keeping with idiopathic skeletal hyperostosis. Hardware: None. Visualized chest/abdominal structures: Exophytic right renal cysts noted. Distended urinary bladder i n keeping with chronic outflow obstruction. IMPRESSION: No acute lumbar spine abnormality. Multilevel disc space degeneration and idiopathic skeletal hyperostosis. L1-L3 laminectomy defects. Report Dictated By: Bryce Shetty MD at 11/22/2018 4:14 PM Report E-Signed By: Bryce Shetty MD at 11/22/2018 4:19 PM WSN:[email or web address]
--- NOTE | 2018-11-24 14:48 | EKG ---
FACILITY: [facility] PATIENT NAME: LAURA BROWN : [id number] MR: [id number] V: [id number] EXAM DATE: ORDERING PHYSICIAN: JOVANY HERNANDEZ TECHNOLOGIST: TEDDY Tellez Reason : Blood Pressure : / mmHG Vent. Rate : 089 BPM Atrial Rate : 089 BPM P-R Int : 152 ms QRS Dur : 094 ms QT Int : 390 ms P-R-T Axes : 063 072 061 degrees QTc Int : 474 ms Normal sinus rhythm Normal ECG Confirmed by Zackary Alatorre ([id number]) on 11/24/2018 10:17:30 PM Referred By: Confirmed By:Zackary Everett
== END 2018-11-22 17:00 | disposition short-term general hospital (02) ==
LOC: ER 13:46
DX: S06.5X1A Traumatic subdural hemorrhage with loss of consciousness of 30 minutes or less, initial encounter (principal); S52.021A Displaced fracture of olecranon process without intraarticular extension of right ulna, initial encounter for closed fracture; W18.30XA Fall on same level, unspecified, initial encounter; M25.552 Pain in left hip; M25.561 Pain in right knee; I69.354 Hemiplegia and hemiparesis following cerebral infarction affecting left non-dominant side; I11.0 Hypertensive heart disease with heart failure; I50.9 Heart failure, unspecified; Z99.81 Dependence on supplemental oxygen; J45.909 Unspecified asthma, uncomplicated
CPT/HCPCS: 36556; 70450; 71045; 72125; 72128; 72131; 73080; 73502; 73564; 82550; 85025; 93005; 99285; A4565; C1758; J3010; J7030; 82040; 82247; 82310; 82374; 82435; 82565; 82947; 84075; 84132; 84155; 84295; 84450; 84460; 84520

== ENCOUNTER → 2018-11-22 | Outpatient (REF) ==
[2017-11-12 15:17] VITALS: BMI 24.9
== END ==
LOC: AMB 16:36
PROVIDERS: ATTEND Nurse Practitioner
DX: S06.5X9A Traumatic subdural hemorrhage with loss of consciousness of unspecified duration, initial encounter (principal)